=== PATIENT | male | born 1970 | race African-American/Black ===

== ENCOUNTER 2020-05-14 10:29 | Inpatient (IN) | payer OTHER ==
[2020-05-14 11:11] VITALS: BMI 24.4
[2020-05-14] MEDS ORDERED: ACETAMINOPHEN 325 MG TABLET (FP) PO PRN ×2 (11:53)
[2020-05-14] MEDS ORDERED: METHOCARBAMOL 500 MG TABLET PO PRN (11:53)
[2020-05-14] MEDS ORDERED: MENTHOL/PHENOL 1 EACH UD MM PRN (11:53)
[2020-05-14] MEDS ORDERED: MAGNESIUM CITRATE 300 ML BOTTLE PO PRN (11:53)
[2020-05-14] MEDS ORDERED: ONDANSETRON *ODT* 4 MG TABLET SL PRN (11:53)
[2020-05-14] MEDS ORDERED: NICOTINE POLACRILEX 2 MG GUM BUC PRN (11:53)
[2020-05-14] MEDS ORDERED: MAG HYDROX/AL HYDROX/SIMETH 30 ML UNIT-DOSE CUP PO PRN (11:53)
[2020-05-14] MEDS ORDERED: BISMUTH SUBSALICYLATE 524 MG/30 ML UD PO PRN (11:53)
[2020-05-14] MEDS ORDERED: MAGNESIUM HYDROX 2400MG/30ML ORAL SUSPENSION 30 ML CUP PO PRN (11:53)
[2020-05-14] MEDS ORDERED: IBUPROFEN 400 MG TABLET (FP) PO PRN (11:53)
[2020-05-14] MEDS: diazePAM 5 MG TABLET PO PRN (12:31)
[2020-05-14] MEDS ORDERED: LIDOCAINE 5% TOPICAL PATCH TP ONE (13:30)
[2020-05-14] MEDS: hydrOXYzine PAMOATE 25 MG CAPSULE (FP) PO SCH ×3 (14:37→22:53)
[2020-05-14 16:39] LABS: HIV INTERPRETATION NEGATIVE (NEGATIVE)
[2020-05-14] MEDS: diazePAM 5 MG TABLET PO SCH ×2 (17:57→22:53)
[2020-05-14] MEDS: THIAMINE HCL 100 MG TABLET (FP) PO SCH (22:53)
[2020-05-14] MEDS: QUEtiapine FUMARATE 100 MG TABLET (FP) PO SCH (22:53)
[2020-05-14] MEDS: MELATONIN 5 MG TABLETS PO SCH (22:54)
[2020-05-14] MEDS: LIDOCAINE PATCH REMOVAL MC SCH ×2 (22:56)
[2020-05-15] MEDS: diazePAM 5 MG TABLET PO SCH ×4 (06:06→22:18)
[2020-05-15] MEDS: hydrOXYzine PAMOATE 25 MG CAPSULE (FP) PO SCH ×5 (06:06→22:18)
[2020-05-15] MEDS: diazePAM 5 MG TABLET PO PRN (08:44)
[2020-05-15] MEDS: LIDOCAINE 5% TOPICAL PATCH TP SCH (10:36)
[2020-05-15] MEDS: PRENATAL VITAMINS W/ FOLIC ACID TABLET (FP) PO SCH (10:36)
[2020-05-15 11:52] LABS: HEMATOCRIT 46.1 % (35.4-49); HEMOGLOBIN 15.5 GM/dL (11.7-16.9); MCH 30.7 pg (25.7-33.7); MCHC 33.6 g/dl (32.0-35.9); MEAN CELL VOLUME 91.3 fl (80-96); MEAN PLT VOLUME 8.5 fl (7.5-11.1); PLATELET COUNT 305 K/MM3 (134-434); RBC 5.05 M/mm3 (4.00-5.60); RDW 13.1 % (11.9-15.9); WHITE BLOOD COUNT 5.4 K/mm3 (4.0-10.0)
[2020-05-15 11:57] LABS: POTASSIUM 3.8 mmol/L (3.5-5.1)
[2020-05-15 12:08] LABS: ALBUMIN 4.5 g/dl (3.4-5.0); BLOOD UREA NITROGEN 10.6 mg/dL (7-18); CALCIUM 9.9 mg/dL (8.5-10.1)
[2020-05-15 12:12] LABS: CREATININE 1.2 mg/dL (0.55-1.3)
[2020-05-15 12:13] LABS: BILIRUBIN,TOTAL 1.2 mg/dL (0.2-1); TOT PROT 7.7 g/dl (6.4-8.2)
[2020-05-15] MEDS: MELATONIN 5 MG TABLETS PO SCH (22:18)
[2020-05-15] MEDS: THIAMINE HCL 100 MG TABLET (FP) PO SCH (22:18)
[2020-05-15] MEDS: QUEtiapine FUMARATE 100 MG TABLET (FP) PO SCH (22:18)
[2020-05-15] MEDS: LIDOCAINE PATCH REMOVAL MC SCH ×2 (22:18)
[2020-05-16] MEDS: hydrOXYzine PAMOATE 25 MG CAPSULE (FP) PO SCH ×5 (06:34→22:15)
[2020-05-16] MEDS: diazePAM 5 MG TABLET PO SCH ×3 (06:34→22:14)
[2020-05-16] MEDS: LIDOCAINE 5% TOPICAL PATCH TP SCH (10:39)
[2020-05-16] MEDS: PRENATAL VITAMINS W/ FOLIC ACID TABLET (FP) PO SCH (10:39)
[2020-05-16] MEDS ORDERED: FLU VACCINE (FLULAVAL) PF 60 MCG/0.5 ML SYRINGE 2020-2021 IM ONE (12:00)
[2020-05-16] MEDS ORDERED: MASKS NR ONE (12:30)
[2020-05-16] MEDS ORDERED: QUEtiapine FUMARATE 50 MG TABLET ONE (21:07)
[2020-05-16] MEDS: QUEtiapine FUMARATE 100 MG TABLET (FP) PO SCH (22:14)
[2020-05-16] MEDS: THIAMINE HCL 100 MG TABLET (FP) PO SCH (22:15)
[2020-05-16] MEDS: MELATONIN 5 MG TABLETS PO SCH (22:15)
[2020-05-16] MEDS: LIDOCAINE PATCH REMOVAL MC SCH ×2 (22:17)
[2020-05-17] MEDS: hydrOXYzine PAMOATE 25 MG CAPSULE (FP) PO SCH ×5 (06:01→22:02)
[2020-05-17] MEDS: diazePAM 5 MG TABLET PO SCH ×2 (06:03→17:35)
[2020-05-17] MEDS: LIDOCAINE 5% TOPICAL PATCH TP SCH (10:57)
[2020-05-17] MEDS: PRENATAL VITAMINS W/ FOLIC ACID TABLET (FP) PO SCH (10:57)
[2020-05-17] MEDS: MELATONIN 5 MG TABLETS PO SCH (22:02)
[2020-05-17] MEDS: THIAMINE HCL 100 MG TABLET (FP) PO SCH (22:02)
[2020-05-17] MEDS: QUEtiapine FUMARATE 100 MG TABLET (FP) PO SCH (22:02)
[2020-05-17] MEDS: LIDOCAINE PATCH REMOVAL MC SCH ×2 (22:03→22:04)
[2020-05-18] MEDS ORDERED: diazePAM 5 MG TABLET PO ONE (06:00)
[2020-05-18] MEDS: hydrOXYzine PAMOATE 25 MG CAPSULE (FP) PO SCH ×2 (06:04→09:33)
[2020-05-18 09:15] VITALS: BP 128/75; PULSE 108; TEMP 97.1
[2020-05-18] MEDS: PRENATAL VITAMINS W/ FOLIC ACID TABLET (FP) PO SCH (09:33)
[2020-05-18] MEDS: LIDOCAINE 5% TOPICAL PATCH TP SCH (09:33)
== END 2020-05-18 12:05 | disposition other institution (70) | DRG 773 ==
LOC: YASAS 10:29 → Y3N 11:32
PROVIDERS: ADMIT Allergy & Immunology; ATTEND Allergy & Immunology
PROC: HZ2ZZZZ Detoxification Services for Substance Abuse Treatment (ICD-10-PCS; principal; 2020-05-14)
DX: F10.230 Alcohol dependence with withdrawal, uncomplicated (principal); F11.20 Opioid dependence, uncomplicated; F14.20 Cocaine dependence, uncomplicated; F12.20 Cannabis dependence, uncomplicated; F17.210 Nicotine dependence, cigarettes, uncomplicated; F19.24 Other psychoactive substance dependence with psychoactive substance-induced mood disorder; F31.9 Bipolar disorder, unspecified; G62.9 Polyneuropathy, unspecified; M16.12 Unilateral primary osteoarthritis, left hip; M54.5 Low back pain; G89.29 Other chronic pain; Z86.79 Personal history of other diseases of the circulatory system; Z87.19 Personal history of other diseases of the digestive system; Z86.19 Personal history of other infectious and parasitic diseases; Z91.19 Patient's noncompliance with other medical treatment and regimen
CPT/HCPCS: 36415; 80053; 82962; 85027; 86780; 87389; 93005; 93010; C9803; U0003

== ENCOUNTER 2020-05-18 12:15 | Inpatient (IN) | payer OTHER ==
[~2020-05-18 12:15] MED LIST: LOPERAMIDE HCL 2 MG CAPSULE PO PRN; MAG HYDROX/AL HYDROX/SIMETH 30 ML UNIT-DOSE CUP PO PRN; MAGNESIUM CITRATE 300 ML BOTTLE PO PRN; MAGNESIUM HYDROX 2400MG/30ML ORAL SUSPENSION 30 ML CUP PO PRN; P-EPHED 60MG/TRIPROLIDI 2.5MG TABLET PO PRN; guaiFENesin 200 MG/10 ML 10 ML UNIT-DOSE CUPS PO PRN
[2020-05-18] MEDS: IBUPROFEN 400 MG TABLET (FP) PO PRN (17:53)
[2020-05-18] MEDS: THIAMINE HCL 100 MG TABLET (FP) PO SCH (21:48)
[2020-05-18] MEDS: MELATONIN 5 MG TABLETS PO SCH (21:48)
[2020-05-18] MEDS: QUEtiapine FUMARATE 100 MG TABLET (FP) PO SCH (21:48)
[2020-05-18] MEDS ORDERED: MASKS NR ONE (22:12)
[2020-05-19] MEDS: IBUPROFEN 400 MG TABLET (FP) PO PRN (06:42)
[2020-05-19] MEDS: LIDOCAINE 5% TOPICAL PATCH TP SCH (09:56)
[2020-05-19] MEDS: PRENATAL VITAMINS W/ FOLIC ACID TABLET (FP) PO SCH (09:56)
[2020-05-19] MEDS: ACETAMINOPHEN 325 MG TABLET (FP) PO PRN ×2 (09:57→17:34)
[2020-05-19] MEDS ORDERED: PNEUMOCOCCAL 23 VACCINE 0.5 ML VIAL IM ONE (12:00)
[2020-05-19] MEDS ORDERED: PNEUMOC 13-VAL CONJ-DIP CRM/PF 0.5 ML DISP.SYRIN IM ONE (12:00)
[2020-05-19] MEDS ORDERED: FLU VACCINE (FLULAVAL) PF 60 MCG/0.5 ML SYRINGE 2020-2021 IM ONE (12:00)
[2020-05-19] MEDS: THIAMINE HCL 100 MG TABLET (FP) PO SCH (21:11)
[2020-05-19] MEDS: QUEtiapine FUMARATE 100 MG TABLET (FP) PO SCH (21:11)
[2020-05-19] MEDS: LIDOCAINE PATCH REMOVAL MC SCH (21:11)
[2020-05-19] MEDS: MELATONIN 5 MG TABLETS PO SCH (21:11)
[2020-05-20] MEDS: IBUPROFEN 400 MG TABLET (FP) PO PRN (06:31)
[2020-05-20] MEDS: LIDOCAINE 5% TOPICAL PATCH TP SCH (10:05)
[2020-05-20] MEDS: PRENATAL VITAMINS W/ FOLIC ACID TABLET (FP) PO SCH (10:05)
[2020-05-20] MEDS: ACETAMINOPHEN 325 MG TABLET (FP) PO PRN (10:06)
[2020-05-20] MEDS: LIDOCAINE PATCH REMOVAL MC SCH (21:47)
[2020-05-20] MEDS: MELATONIN 5 MG TABLETS PO SCH (21:47)
[2020-05-20] MEDS: THIAMINE HCL 100 MG TABLET (FP) PO SCH (21:47)
[2020-05-20] MEDS: QUEtiapine FUMARATE 50 MG TABLET PO SCH (21:48)
[2020-05-20] MEDS: GABAPENTIN 100 MG CAPSULE PO SCH (21:50)
[2020-05-20] MEDS ORDERED: GABAPENTIN 400 MG CAPSULE PO SCH (22:00)
[2020-05-21] MEDS: LIDOCAINE 5% TOPICAL PATCH TP SCH (10:16)
[2020-05-21] MEDS: IBUPROFEN 400 MG TABLET (FP) PO PRN (10:17)
[2020-05-21] MEDS: GABAPENTIN 100 MG CAPSULE PO SCH ×2 (10:17→21:19)
[2020-05-21] MEDS: PRENATAL VITAMINS W/ FOLIC ACID TABLET (FP) PO SCH (10:17)
[2020-05-21] MEDS: THIAMINE HCL 100 MG TABLET (FP) PO SCH (21:19)
[2020-05-21] MEDS: QUEtiapine FUMARATE 50 MG TABLET PO SCH (21:19)
[2020-05-21] MEDS: MELATONIN 5 MG TABLETS PO SCH (21:19)
[2020-05-21] MEDS: LIDOCAINE PATCH REMOVAL MC SCH (21:20)
[2020-05-22] MEDS: IBUPROFEN 400 MG TABLET (FP) PO PRN ×2 (07:29→15:59)
[2020-05-22] MEDS: PRENATAL VITAMINS W/ FOLIC ACID TABLET (FP) PO SCH (10:10)
[2020-05-22] MEDS: GABAPENTIN 100 MG CAPSULE PO SCH ×2 (10:10→21:52)
[2020-05-22] MEDS: LIDOCAINE 5% TOPICAL PATCH TP SCH (10:11)
[2020-05-22] MEDS: LIDOCAINE PATCH REMOVAL MC SCH (21:52)
[2020-05-22] MEDS: QUEtiapine FUMARATE 50 MG TABLET PO SCH (21:52)
[2020-05-22] MEDS: THIAMINE HCL 100 MG TABLET (FP) PO SCH (21:53)
[2020-05-22] MEDS: MELATONIN 5 MG TABLETS PO SCH (21:53)
[2020-05-23] MEDS: LIDOCAINE 5% TOPICAL PATCH TP SCH (09:56)
[2020-05-23] MEDS: PRENATAL VITAMINS W/ FOLIC ACID TABLET (FP) PO SCH (09:56)
[2020-05-23] MEDS: GABAPENTIN 100 MG CAPSULE PO SCH ×2 (09:56→21:14)
[2020-05-23] MEDS: ACETAMINOPHEN 325 MG TABLET (FP) PO PRN ×3 (10:55→21:15)
[2020-05-23] MEDS: MELATONIN 5 MG TABLETS PO SCH (21:14)
[2020-05-23] MEDS: THIAMINE HCL 100 MG TABLET (FP) PO SCH (21:14)
[2020-05-23] MEDS: QUEtiapine FUMARATE 50 MG TABLET PO SCH (21:14)
[2020-05-23] MEDS: LIDOCAINE PATCH REMOVAL MC SCH (21:15)
[2020-05-24] MEDS: ACETAMINOPHEN 325 MG TABLET (FP) PO PRN ×2 (04:10→17:05)
[2020-05-24] MEDS ORDERED: MASKS NR ONE (06:23)
[2020-05-24] MEDS: IBUPROFEN 400 MG TABLET (FP) PO PRN (06:57)
[2020-05-24] MEDS: PRENATAL VITAMINS W/ FOLIC ACID TABLET (FP) PO SCH (10:16)
[2020-05-24] MEDS: LIDOCAINE 5% TOPICAL PATCH TP SCH (10:16)
[2020-05-24] MEDS: GABAPENTIN 100 MG CAPSULE PO SCH ×2 (10:16→21:43)
[2020-05-24] MEDS: METHYL SALICYLATE/MENTHOL OINT 30 GM TUBE TP SCH (21:42)
[2020-05-24] MEDS: METHOCARBAMOL 500 MG TABLET PO PRN (21:43)
[2020-05-24] MEDS: MELATONIN 5 MG TABLETS PO SCH (21:43)
[2020-05-24] MEDS: QUEtiapine FUMARATE 50 MG TABLET PO SCH (21:43)
[2020-05-24] MEDS: THIAMINE HCL 100 MG TABLET (FP) PO SCH (21:43)
[2020-05-24] MEDS: LIDOCAINE PATCH REMOVAL MC SCH (21:43)
[2020-05-25] MEDS: ACETAMINOPHEN 325 MG TABLET (FP) PO PRN ×2 (07:44→18:27)
[2020-05-25] MEDS: LIDOCAINE 5% TOPICAL PATCH TP SCH (09:59)
[2020-05-25] MEDS: GABAPENTIN 100 MG CAPSULE PO SCH ×2 (09:59→21:16)
[2020-05-25] MEDS: PRENATAL VITAMINS W/ FOLIC ACID TABLET (FP) PO SCH (09:59)
[2020-05-25] MEDS ORDERED: MASKS NR ONE (17:14)
[2020-05-25] MEDS: THIAMINE HCL 100 MG TABLET (FP) PO SCH (21:15)
[2020-05-25] MEDS: QUEtiapine FUMARATE 50 MG TABLET PO SCH (21:15)
[2020-05-25] MEDS: MELATONIN 5 MG TABLETS PO SCH (21:16)
[2020-05-25] MEDS: METHOCARBAMOL 500 MG TABLET PO PRN (21:16)
[2020-05-25] MEDS: METHYL SALICYLATE/MENTHOL OINT 30 GM TUBE TP SCH (21:17)
[2020-05-25] MEDS: LIDOCAINE PATCH REMOVAL MC SCH (21:17)
[2020-05-26] MEDS: LIDOCAINE 5% TOPICAL PATCH TP SCH (10:08)
[2020-05-26] MEDS: PRENATAL VITAMINS W/ FOLIC ACID TABLET (FP) PO SCH (10:09)
[2020-05-26] MEDS: GABAPENTIN 100 MG CAPSULE PO SCH ×2 (10:09→21:43)
[2020-05-26] MEDS: ACETAMINOPHEN 325 MG TABLET (FP) PO PRN ×3 (10:10→21:44)
[2020-05-26] MEDS: METHYL SALICYLATE/MENTHOL OINT 30 GM TUBE TP SCH (21:42)
[2020-05-26] MEDS: LIDOCAINE PATCH REMOVAL MC SCH (21:42)
[2020-05-26] MEDS: QUEtiapine FUMARATE 50 MG TABLET PO SCH (21:43)
[2020-05-26] MEDS: THIAMINE HCL 100 MG TABLET (FP) PO SCH (21:43)
[2020-05-26] MEDS: MELATONIN 5 MG TABLETS PO SCH (21:43)
[2020-05-26] MEDS: METHOCARBAMOL 500 MG TABLET PO PRN (21:43)
[2020-05-27] MEDS: ACETAMINOPHEN 325 MG TABLET (FP) PO PRN ×3 (06:16→21:39)
[2020-05-27] MEDS ORDERED: COLLOIDAL OATMEAL 1 BAR EACH TP PRN (09:36)
[2020-05-27] MEDS ORDERED: AMMONIUM LACTATE 12% LOTION 225 GM BOTTLE TP PRN (09:36)
[2020-05-27] MEDS: GABAPENTIN 100 MG CAPSULE PO SCH ×2 (10:02→21:37)
[2020-05-27] MEDS: LIDOCAINE 5% TOPICAL PATCH TP SCH (10:02)
[2020-05-27] MEDS: PRENATAL VITAMINS W/ FOLIC ACID TABLET (FP) PO SCH (10:03)
[2020-05-27] MEDS: METHOCARBAMOL 500 MG TABLET PO PRN (10:04)
[2020-05-27] MEDS: THIAMINE HCL 100 MG TABLET (FP) PO SCH (21:38)
[2020-05-27] MEDS: QUEtiapine FUMARATE 50 MG TABLET PO SCH (21:39)
[2020-05-27] MEDS: MELATONIN 5 MG TABLETS PO SCH (21:41)
[2020-05-27] MEDS: METHYL SALICYLATE/MENTHOL OINT 30 GM TUBE TP SCH (23:04)
[2020-05-27] MEDS: LIDOCAINE PATCH REMOVAL MC SCH (23:05)
[2020-05-28] MEDS: ACETAMINOPHEN 325 MG TABLET (FP) PO PRN ×2 (06:38→20:35)
[2020-05-28] MEDS: LIDOCAINE 5% TOPICAL PATCH TP SCH (10:32)
[2020-05-28] MEDS: GABAPENTIN 100 MG CAPSULE PO SCH ×2 (10:32→21:12)
[2020-05-28] MEDS: PRENATAL VITAMINS W/ FOLIC ACID TABLET (FP) PO SCH (10:32)
[2020-05-28] MEDS: IBUPROFEN 400 MG TABLET (FP) PO PRN (10:32)
[2020-05-28] MEDS: MELATONIN 5 MG TABLETS PO SCH (21:12)
[2020-05-28] MEDS: THIAMINE HCL 100 MG TABLET (FP) PO SCH (21:12)
[2020-05-28] MEDS: QUEtiapine FUMARATE 50 MG TABLET PO SCH (21:12)
[2020-05-28] MEDS: METHOCARBAMOL 500 MG TABLET PO PRN (21:12)
[2020-05-28] MEDS: LIDOCAINE PATCH REMOVAL MC SCH (21:13)
[2020-05-28] MEDS: METHYL SALICYLATE/MENTHOL OINT 30 GM TUBE TP SCH (21:13)
[2020-05-29] MEDS: PRENATAL VITAMINS W/ FOLIC ACID TABLET (FP) PO SCH (09:57)
[2020-05-29] MEDS: GABAPENTIN 100 MG CAPSULE PO SCH ×2 (09:57→21:44)
[2020-05-29] MEDS: LIDOCAINE 5% TOPICAL PATCH TP SCH (09:58)
[2020-05-29] MEDS: IBUPROFEN 400 MG TABLET (FP) PO PRN ×2 (10:00→16:27)
[2020-05-29] MEDS: ACETAMINOPHEN 325 MG TABLET (FP) PO PRN ×2 (13:59→21:44)
[2020-05-29] MEDS: METHYL SALICYLATE/MENTHOL OINT 30 GM TUBE TP SCH (21:43)
[2020-05-29] MEDS: LIDOCAINE PATCH REMOVAL MC SCH (21:43)
[2020-05-29] MEDS: QUEtiapine FUMARATE 50 MG TABLET PO SCH (21:43)
[2020-05-29] MEDS: MELATONIN 5 MG TABLETS PO SCH (21:43)
[2020-05-29] MEDS: THIAMINE HCL 100 MG TABLET (FP) PO SCH (21:44)
[2020-05-30] MEDS: IBUPROFEN 400 MG TABLET (FP) PO PRN ×2 (06:52→14:52)
[2020-05-30] MEDS: GABAPENTIN 100 MG CAPSULE PO SCH ×2 (10:00→21:16)
[2020-05-30] MEDS: PRENATAL VITAMINS W/ FOLIC ACID TABLET (FP) PO SCH (10:01)
[2020-05-30] MEDS: LIDOCAINE 5% TOPICAL PATCH TP SCH (10:01)
[2020-05-30] MEDS: METHOCARBAMOL 500 MG TABLET PO PRN ×2 (10:02→21:16)
[2020-05-30] MEDS ORDERED: MASKS NR ONE (18:30)
[2020-05-30] MEDS: ACETAMINOPHEN 325 MG TABLET (FP) PO PRN (18:50)
[2020-05-30] MEDS: MELATONIN 5 MG TABLETS PO SCH (21:16)
[2020-05-30] MEDS: QUEtiapine FUMARATE 50 MG TABLET PO SCH (21:16)
[2020-05-30] MEDS: THIAMINE HCL 100 MG TABLET (FP) PO SCH (21:16)
[2020-05-30] MEDS: METHYL SALICYLATE/MENTHOL OINT 30 GM TUBE TP SCH (21:17)
[2020-05-30] MEDS: LIDOCAINE PATCH REMOVAL MC SCH (21:17)
[2020-05-31] MEDS: IBUPROFEN 400 MG TABLET (FP) PO PRN ×2 (06:51→17:45)
[2020-05-31] MEDS: GABAPENTIN 100 MG CAPSULE PO SCH ×2 (09:52→21:34)
[2020-05-31] MEDS: LIDOCAINE 5% TOPICAL PATCH TP SCH (09:52)
[2020-05-31] MEDS: PRENATAL VITAMINS W/ FOLIC ACID TABLET (FP) PO SCH (09:52)
[2020-05-31] MEDS: METHOCARBAMOL 500 MG TABLET PO PRN (21:34)
[2020-05-31] MEDS: MELATONIN 5 MG TABLETS PO SCH (21:34)
[2020-05-31] MEDS: QUEtiapine FUMARATE 50 MG TABLET PO SCH (21:34)
[2020-05-31] MEDS: METHYL SALICYLATE/MENTHOL OINT 30 GM TUBE TP SCH (21:34)
[2020-05-31] MEDS: LIDOCAINE PATCH REMOVAL MC SCH (21:34)
[2020-05-31] MEDS: THIAMINE HCL 100 MG TABLET (FP) PO SCH (21:35)
[2020-06-01] MEDS: IBUPROFEN 400 MG TABLET (FP) PO PRN ×2 (06:50→19:05)
[2020-06-01] MEDS: PRENATAL VITAMINS W/ FOLIC ACID TABLET (FP) PO SCH (09:56)
[2020-06-01] MEDS: LIDOCAINE 5% TOPICAL PATCH TP SCH (09:56)
[2020-06-01] MEDS: ACETAMINOPHEN 325 MG TABLET (FP) PO PRN ×2 (09:56→14:28)
[2020-06-01] MEDS: GABAPENTIN 100 MG CAPSULE PO SCH ×2 (09:56→21:18)
[2020-06-01] MEDS: THIAMINE HCL 100 MG TABLET (FP) PO SCH (21:18)
[2020-06-01] MEDS: MELATONIN 5 MG TABLETS PO SCH (21:18)
[2020-06-01] MEDS: METHOCARBAMOL 500 MG TABLET PO PRN (21:18)
[2020-06-01] MEDS: QUEtiapine FUMARATE 50 MG TABLET PO SCH (21:19)
[2020-06-01] MEDS: LIDOCAINE PATCH REMOVAL MC SCH (21:20)
[2020-06-01] MEDS: METHYL SALICYLATE/MENTHOL OINT 30 GM TUBE TP SCH (21:20)
[2020-06-02] MEDS: METHOCARBAMOL 500 MG TABLET PO PRN ×2 (06:32→21:38)
[2020-06-02] MEDS: PRENATAL VITAMINS W/ FOLIC ACID TABLET (FP) PO SCH (09:59)
[2020-06-02] MEDS: GABAPENTIN 100 MG CAPSULE PO SCH (09:59)
[2020-06-02] MEDS: LIDOCAINE 5% TOPICAL PATCH TP SCH (09:59)
[2020-06-02] MEDS: ACETAMINOPHEN 325 MG TABLET (FP) PO PRN (10:00)
[2020-06-02] MEDS: IBUPROFEN 400 MG TABLET (FP) PO PRN (21:38)
[2020-06-02] MEDS: METHYL SALICYLATE/MENTHOL OINT 30 GM TUBE TP SCH (21:38)
[2020-06-02] MEDS: MELATONIN 5 MG TABLETS PO SCH (21:38)
[2020-06-02] MEDS: LIDOCAINE PATCH REMOVAL MC SCH (21:38)
[2020-06-02] MEDS: QUEtiapine FUMARATE 200 MG TABLET PO SCH (21:39)
[2020-06-02] MEDS: THIAMINE HCL 100 MG TABLET (FP) PO SCH (21:39)
[2020-06-02] MEDS: GABAPENTIN 400 MG CAPSULE PO SCH (21:39)
[2020-06-03] MEDS: IBUPROFEN 400 MG TABLET (FP) PO PRN (06:55)
[2020-06-03] MEDS: LIDOCAINE 5% TOPICAL PATCH TP SCH (10:03)
[2020-06-03] MEDS: GABAPENTIN 400 MG CAPSULE PO SCH ×2 (10:04→21:38)
[2020-06-03] MEDS: PRENATAL VITAMINS W/ FOLIC ACID TABLET (FP) PO SCH (10:04)
[2020-06-03] MEDS: ACETAMINOPHEN 325 MG TABLET (FP) PO PRN ×2 (10:05→19:11)
[2020-06-03] MEDS: MELATONIN 5 MG TABLETS PO SCH (21:38)
[2020-06-03] MEDS: QUEtiapine FUMARATE 200 MG TABLET PO SCH (21:38)
[2020-06-03] MEDS: METHOCARBAMOL 500 MG TABLET PO PRN (21:38)
[2020-06-03] MEDS: THIAMINE HCL 100 MG TABLET (FP) PO SCH (21:38)
[2020-06-03] MEDS: LIDOCAINE HCL 5% TOP OINTMENT 50 GM TUBE TP PRN (21:39)
[2020-06-03] MEDS: LIDOCAINE PATCH REMOVAL MC SCH (21:40)
[2020-06-03] MEDS: METHYL SALICYLATE/MENTHOL OINT 30 GM TUBE TP SCH (21:40)
[2020-06-04] MEDS: IBUPROFEN 400 MG TABLET (FP) PO PRN (06:56)
[2020-06-04] MEDS: PRENATAL VITAMINS W/ FOLIC ACID TABLET (FP) PO SCH (10:28)
[2020-06-04] MEDS: LIDOCAINE 5% TOPICAL PATCH TP SCH (10:28)
[2020-06-04] MEDS: GABAPENTIN 400 MG CAPSULE PO SCH ×2 (10:28→21:39)
[2020-06-04] MEDS: ACETAMINOPHEN 325 MG TABLET (FP) PO PRN ×2 (10:30→21:39)
[2020-06-04] MEDS: METHOCARBAMOL 500 MG TABLET PO PRN ×2 (10:30→21:39)
[2020-06-04] MEDS: LIDOCAINE HCL 5% TOP OINTMENT 50 GM TUBE TP PRN (21:38)
[2020-06-04] MEDS: MELATONIN 5 MG TABLETS PO SCH (21:39)
[2020-06-04] MEDS: LIDOCAINE PATCH REMOVAL MC SCH (21:39)
[2020-06-04] MEDS: QUEtiapine FUMARATE 200 MG TABLET PO SCH (21:39)
[2020-06-04] MEDS: METHYL SALICYLATE/MENTHOL OINT 30 GM TUBE TP SCH (21:39)
[2020-06-04] MEDS: THIAMINE HCL 100 MG TABLET (FP) PO SCH (21:39)
[2020-06-05] MEDS: ACETAMINOPHEN 325 MG TABLET (FP) PO PRN ×2 (06:39→14:29)
[2020-06-05] MEDS: GABAPENTIN 400 MG CAPSULE PO SCH ×2 (09:53→21:21)
[2020-06-05] MEDS: PRENATAL VITAMINS W/ FOLIC ACID TABLET (FP) PO SCH (09:53)
[2020-06-05] MEDS: LIDOCAINE 5% TOPICAL PATCH TP SCH (09:54)
[2020-06-05] MEDS: IBUPROFEN 400 MG TABLET (FP) PO PRN (19:36)
[2020-06-05] MEDS: MELATONIN 5 MG TABLETS PO SCH (21:21)
[2020-06-05] MEDS: METHOCARBAMOL 500 MG TABLET PO PRN (21:21)
[2020-06-05] MEDS: QUEtiapine FUMARATE 200 MG TABLET PO SCH (21:21)
[2020-06-05] MEDS: THIAMINE HCL 100 MG TABLET (FP) PO SCH (21:21)
[2020-06-05] MEDS: LIDOCAINE PATCH REMOVAL MC SCH (21:22)
[2020-06-05] MEDS: METHYL SALICYLATE/MENTHOL OINT 30 GM TUBE TP SCH (21:22)
[2020-06-06] MEDS: IBUPROFEN 400 MG TABLET (FP) PO PRN (06:24)
[2020-06-06] MEDS: PRENATAL VITAMINS W/ FOLIC ACID TABLET (FP) PO SCH (09:56)
[2020-06-06] MEDS: GABAPENTIN 400 MG CAPSULE PO SCH ×2 (09:56→21:53)
[2020-06-06] MEDS: LIDOCAINE 5% TOPICAL PATCH TP SCH (09:57)
[2020-06-06] MEDS: ACETAMINOPHEN 325 MG TABLET (FP) PO PRN (09:58)
[2020-06-06] MEDS: MELATONIN 5 MG TABLETS PO SCH (21:52)
[2020-06-06] MEDS: LIDOCAINE PATCH REMOVAL MC SCH (21:52)
[2020-06-06] MEDS: METHYL SALICYLATE/MENTHOL OINT 30 GM TUBE TP SCH (21:52)
[2020-06-06] MEDS: THIAMINE HCL 100 MG TABLET (FP) PO SCH (21:53)
[2020-06-06] MEDS: QUEtiapine FUMARATE 200 MG TABLET PO SCH (21:53)
[2020-06-06] MEDS: METHOCARBAMOL 500 MG TABLET PO PRN (21:53)
[2020-06-07] MEDS ORDERED: MASKS NR ONE (06:08)
[2020-06-07] MEDS: ACETAMINOPHEN 325 MG TABLET (FP) PO PRN ×3 (06:09→21:28)
[2020-06-07] MEDS: PRENATAL VITAMINS W/ FOLIC ACID TABLET (FP) PO SCH (10:10)
[2020-06-07] MEDS: GABAPENTIN 400 MG CAPSULE PO SCH ×2 (10:10→21:28)
[2020-06-07] MEDS: LIDOCAINE 5% TOPICAL PATCH TP SCH (10:11)
[2020-06-07] MEDS: IBUPROFEN 400 MG TABLET (FP) PO PRN (10:12)
[2020-06-07] MEDS: METHOCARBAMOL 500 MG TABLET PO PRN (21:28)
[2020-06-07] MEDS: MELATONIN 5 MG TABLETS PO SCH (21:28)
[2020-06-07] MEDS: QUEtiapine FUMARATE 200 MG TABLET PO SCH (21:28)
[2020-06-07] MEDS: THIAMINE HCL 100 MG TABLET (FP) PO SCH (21:28)
[2020-06-07] MEDS: LIDOCAINE HCL 5% TOP OINTMENT 50 GM TUBE TP PRN (21:28)
[2020-06-07] MEDS: LIDOCAINE PATCH REMOVAL MC SCH (21:30)
[2020-06-07] MEDS: METHYL SALICYLATE/MENTHOL OINT 30 GM TUBE TP SCH (21:30)
[2020-06-08] MEDS: ACETAMINOPHEN 325 MG TABLET (FP) PO PRN ×2 (06:46→21:55)
[2020-06-08] MEDS: GABAPENTIN 400 MG CAPSULE PO SCH ×2 (10:17→21:55)
[2020-06-08] MEDS: LIDOCAINE 5% TOPICAL PATCH TP SCH (10:17)
[2020-06-08] MEDS: IBUPROFEN 400 MG TABLET (FP) PO PRN (10:17)
[2020-06-08] MEDS: PRENATAL VITAMINS W/ FOLIC ACID TABLET (FP) PO SCH (10:18)
[2020-06-08] MEDS: METHOCARBAMOL 500 MG TABLET PO PRN (10:18)
[2020-06-08] MEDS: METHYL SALICYLATE/MENTHOL OINT 30 GM TUBE TP SCH (21:55)
[2020-06-08] MEDS: THIAMINE HCL 100 MG TABLET (FP) PO SCH (21:55)
[2020-06-08] MEDS: MELATONIN 5 MG TABLETS PO SCH (21:55)
[2020-06-08] MEDS: QUEtiapine FUMARATE 200 MG TABLET PO SCH (21:55)
[2020-06-08] MEDS: SUVOREXANT 10 MG TABLET PO PRN (21:55)
[2020-06-08] MEDS: LIDOCAINE PATCH REMOVAL MC SCH (21:55)
[2020-06-08] MEDS: LIDOCAINE HCL 5% TOP OINTMENT 50 GM TUBE TP PRN (21:57)
[2020-06-09] MEDS: ACETAMINOPHEN 325 MG TABLET (FP) PO PRN ×2 (06:32→15:03)
[2020-06-09] MEDS: PRENATAL VITAMINS W/ FOLIC ACID TABLET (FP) PO SCH (10:38)
[2020-06-09] MEDS: LIDOCAINE 5% TOPICAL PATCH TP SCH (10:38)
[2020-06-09] MEDS: GABAPENTIN 400 MG CAPSULE PO SCH ×2 (10:38→21:14)
[2020-06-09] MEDS: IBUPROFEN 400 MG TABLET (FP) PO PRN ×2 (10:39→18:50)
[2020-06-09] MEDS: METHOCARBAMOL 500 MG TABLET PO PRN (10:39)
[2020-06-09] MEDS: LIDOCAINE HCL 5% TOP OINTMENT 50 GM TUBE TP PRN (21:13)
[2020-06-09] MEDS: SUVOREXANT 10 MG TABLET PO PRN (21:14)
[2020-06-09] MEDS: MELATONIN 5 MG TABLETS PO SCH (21:14)
[2020-06-09] MEDS: QUEtiapine FUMARATE 200 MG TABLET PO SCH (21:14)
[2020-06-09] MEDS: THIAMINE HCL 100 MG TABLET (FP) PO SCH (21:14)
[2020-06-09] MEDS: LIDOCAINE PATCH REMOVAL MC SCH (21:15)
[2020-06-09] MEDS: METHYL SALICYLATE/MENTHOL OINT 30 GM TUBE TP SCH (21:15)
[2020-06-10] MEDS: ACETAMINOPHEN 325 MG TABLET (FP) PO PRN ×2 (06:48→18:15)
[2020-06-10] MEDS: LIDOCAINE 5% TOPICAL PATCH TP SCH (10:19)
[2020-06-10] MEDS: METHOCARBAMOL 500 MG TABLET PO PRN ×2 (10:19→22:09)
[2020-06-10] MEDS: GABAPENTIN 400 MG CAPSULE PO SCH ×2 (10:19→22:09)
[2020-06-10] MEDS: PRENATAL VITAMINS W/ FOLIC ACID TABLET (FP) PO SCH (10:19)
[2020-06-10] MEDS: THIAMINE HCL 100 MG TABLET (FP) PO SCH (22:09)
[2020-06-10] MEDS: LIDOCAINE PATCH REMOVAL MC SCH (22:09)
[2020-06-10] MEDS: QUEtiapine FUMARATE 200 MG TABLET PO SCH (22:09)
[2020-06-10] MEDS: MELATONIN 5 MG TABLETS PO SCH (22:09)
[2020-06-10] MEDS: traZODone HCL 50 MG TABLET (FP) PO SCH (22:11)
[2020-06-10] MEDS: METHYL SALICYLATE/MENTHOL OINT 30 GM TUBE TP SCH (22:12)
[2020-06-11] MEDS: ACETAMINOPHEN 325 MG TABLET (FP) PO PRN ×2 (06:40→19:53)
[2020-06-11] MEDS: LIDOCAINE 5% TOPICAL PATCH TP SCH (10:40)
[2020-06-11] MEDS: PRENATAL VITAMINS W/ FOLIC ACID TABLET (FP) PO SCH (10:40)
[2020-06-11] MEDS: GABAPENTIN 400 MG CAPSULE PO SCH ×2 (10:40→21:17)
[2020-06-11] MEDS: THIAMINE HCL 100 MG TABLET (FP) PO SCH (21:16)
[2020-06-11] MEDS: QUEtiapine FUMARATE 200 MG TABLET PO SCH (21:17)
[2020-06-11] MEDS: MELATONIN 5 MG TABLETS PO SCH (21:17)
[2020-06-11] MEDS: LIDOCAINE PATCH REMOVAL MC SCH (21:17)
[2020-06-11] MEDS: traZODone HCL 50 MG TABLET (FP) PO SCH (21:17)
[2020-06-11] MEDS: METHYL SALICYLATE/MENTHOL OINT 30 GM TUBE TP SCH (21:17)
[2020-06-12] MEDS: ACETAMINOPHEN 325 MG TABLET (FP) PO PRN ×2 (07:06→13:51)
[2020-06-12] MEDS: LIDOCAINE 5% TOPICAL PATCH TP SCH (10:23)
[2020-06-12] MEDS: METHOCARBAMOL 500 MG TABLET PO PRN ×2 (10:23→21:38)
[2020-06-12] MEDS: GABAPENTIN 400 MG CAPSULE PO SCH ×2 (10:23→21:38)
[2020-06-12] MEDS: PRENATAL VITAMINS W/ FOLIC ACID TABLET (FP) PO SCH (10:24)
[2020-06-12] MEDS: IBUPROFEN 400 MG TABLET (FP) PO PRN ×2 (10:26→21:38)
[2020-06-12] MEDS: MELATONIN 5 MG TABLETS PO SCH (21:38)
[2020-06-12] MEDS: traZODone HCL 50 MG TABLET (FP) PO SCH (21:38)
[2020-06-12] MEDS: QUEtiapine FUMARATE 200 MG TABLET PO SCH (21:38)
[2020-06-12] MEDS: THIAMINE HCL 100 MG TABLET (FP) PO SCH (21:38)
[2020-06-12] MEDS: LIDOCAINE PATCH REMOVAL MC SCH (22:04)
[2020-06-12] MEDS: METHYL SALICYLATE/MENTHOL OINT 30 GM TUBE TP SCH (22:04)
[2020-06-13] MEDS: ACETAMINOPHEN 325 MG TABLET (FP) PO PRN ×4 (07:11→22:05)
[2020-06-13] MEDS: METHOCARBAMOL 500 MG TABLET PO PRN ×2 (10:08→21:16)
[2020-06-13] MEDS: PRENATAL VITAMINS W/ FOLIC ACID TABLET (FP) PO SCH (10:08)
[2020-06-13] MEDS: IBUPROFEN 400 MG TABLET (FP) PO PRN (10:08)
[2020-06-13] MEDS: GABAPENTIN 400 MG CAPSULE PO SCH ×2 (10:08→21:16)
[2020-06-13] MEDS: LIDOCAINE 5% TOPICAL PATCH TP SCH (10:09)
[2020-06-13] MEDS: MELATONIN 5 MG TABLETS PO SCH (21:16)
[2020-06-13] MEDS: THIAMINE HCL 100 MG TABLET (FP) PO SCH (21:16)
[2020-06-13] MEDS: traZODone HCL 50 MG TABLET (FP) PO SCH (21:16)
[2020-06-13] MEDS: QUEtiapine FUMARATE 200 MG TABLET PO SCH (21:16)
[2020-06-13] MEDS: METHYL SALICYLATE/MENTHOL OINT 30 GM TUBE TP SCH (21:18)
[2020-06-13] MEDS: LIDOCAINE PATCH REMOVAL MC SCH (21:18)
[2020-06-14] MEDS: ACETAMINOPHEN 325 MG TABLET (FP) PO PRN (07:03)
[2020-06-14 07:12] VITALS: TEMP 97.8
[2020-06-14] MEDS: LIDOCAINE 5% TOPICAL PATCH TP SCH (10:36)
[2020-06-14] MEDS: GABAPENTIN 400 MG CAPSULE PO SCH ×2 (10:36→21:34)
[2020-06-14] MEDS: PRENATAL VITAMINS W/ FOLIC ACID TABLET (FP) PO SCH (10:36)
[2020-06-14] MEDS: METHOCARBAMOL 500 MG TABLET PO PRN ×2 (10:37→21:34)
[2020-06-14] MEDS: IBUPROFEN 400 MG TABLET (FP) PO PRN (18:59)
[2020-06-14] MEDS: QUEtiapine FUMARATE 200 MG TABLET PO SCH (21:34)
[2020-06-14] MEDS: traZODone HCL 50 MG TABLET (FP) PO SCH (21:34)
[2020-06-14] MEDS: THIAMINE HCL 100 MG TABLET (FP) PO SCH (21:34)
[2020-06-14] MEDS: MELATONIN 5 MG TABLETS PO SCH (21:34)
[2020-06-14] MEDS: METHYL SALICYLATE/MENTHOL OINT 30 GM TUBE TP SCH (21:35)
[2020-06-14] MEDS: LIDOCAINE PATCH REMOVAL MC SCH (21:35)
[2020-06-15 07:06] VITALS: BP 116/69; PULSE 100
[2020-06-15] MEDS: PRENATAL VITAMINS W/ FOLIC ACID TABLET (FP) PO SCH (09:50)
[2020-06-15] MEDS: GABAPENTIN 400 MG CAPSULE PO SCH (09:50)
[2020-06-15] MEDS: LIDOCAINE 5% TOPICAL PATCH TP SCH (09:51)
== END 2020-06-15 10:26 | disposition home or self-care (01) | DRG 772 ==
LOC: YASAS 12:15 → Y5N 12:16
PROVIDERS: ADMIT Allergy & Immunology; ATTEND Allergy & Immunology
PROC: HZ42ZZZ Group Counseling for Substance Abuse Treatment, Cognitive-Behavioral (ICD-10-PCS; principal; 2020-05-18)
DX: F10.20 Alcohol dependence, uncomplicated (principal); F14.20 Cocaine dependence, uncomplicated; F17.210 Nicotine dependence, cigarettes, uncomplicated; M19.90 Unspecified osteoarthritis, unspecified site; R26.89 Other abnormalities of gait and mobility; G47.00 Insomnia, unspecified; M54.5 Low back pain; G89.29 Other chronic pain; Z87.438 Personal history of other diseases of male genital organs
CPT/HCPCS: 82962; 90732; C9803; G0008; G0009; Q2036; U0003

== ENCOUNTER 2020-08-17 11:05 | Inpatient (IN) | payer OTHER ==
[2020-08-17 12:02] VITALS: BMI 25.1
[2020-08-17] MEDS ORDERED: MAG HYDROX/AL HYDROX/SIMETH 30 ML UNIT-DOSE CUP PO PRN (16:37)
[2020-08-17] MEDS ORDERED: LOPERAMIDE HCL 2 MG CAPSULE PO PRN (16:37)
[2020-08-17] MEDS ORDERED: MAGNESIUM HYDROX 2400MG/30ML ORAL SUSPENSION 30 ML CUP PO PRN (16:37)
[2020-08-17] MEDS ORDERED: guaiFENesin 200 MG/10 ML 10 ML UNIT-DOSE CUPS PO PRN (16:37)
[2020-08-17] MEDS ORDERED: P-EPHED 60MG/TRIPROLIDI 2.5MG TABLET PO PRN (16:37)
[2020-08-17] MEDS ORDERED: MAGNESIUM CITRATE 300 ML BOTTLE PO PRN (16:37)
[2020-08-17] MEDS ORDERED: NICOTINE POLACRILEX 2 MG GUM BC PRN (16:37)
[2020-08-17 21:19] LABS: PH,URINE 5.5 (5.0-8.0); URINE APPEARANCE CLEAR; URINE BILIRUBIN NEGATIVE (NEGATIVE); URINE COLOR YELLOW; URINE GLUCOSE (UA) NEGATIVE (NEGATIVE); URINE KETONE NEGATIVE (NEGATIVE); URINE LEUK ESTERASE NEGATIVE (NEGATIVE); URINE NITRITE NEGATIVE (NEGATIVE); URINE PROTEIN NEGATIVE (NEGATIVE); URINE UROBILINOGEN 0.2 mg/dL (0.2-1.0)
[2020-08-17] MEDS: THIAMINE HCL 100 MG TABLET (FP) PO SCH (21:42)
[2020-08-17] MEDS: MELATONIN 5 MG TABLETS PO SCH (21:42)
[2020-08-17] MEDS: IBUPROFEN 400 MG TABLET (FP) PO PRN (23:53)
[2020-08-18] MEDS: PRENATAL VITAMINS W/ FOLIC ACID TABLET (FP) PO SCH (09:45)
[2020-08-18] MEDS: NICOTINE 21 MG/24 HOURS TOPICAL PATCH TD SCH (09:45)
[2020-08-18] MEDS: GABAPENTIN 400 MG CAPSULE PO SCH ×2 (09:46→21:13)
[2020-08-18 11:21] LABS: POTASSIUM 4.8 mmol/L (3.5-5.1)
[2020-08-18 11:22] LABS: HEMATOCRIT 40.5 % (35.4-49); HEMOGLOBIN 13.7 GM/dL (11.7-16.9); MCH 30.2 pg (25.7-33.7); MCHC 33.8 g/dl (32.0-35.9); MEAN CELL VOLUME 89.3 fl (80-96); PLATELET COUNT 352 K/MM3 (134-434); RBC 4.53 M/mm3 (4.00-5.60); RDW 12.9 % (11.9-15.9); WHITE BLOOD COUNT 5.6 K/mm3 (4.0-10.0)
[2020-08-18 11:31] LABS: CALCIUM 9.4 mg/dL (8.5-10.1)
[2020-08-18 11:32] LABS: ALBUMIN 3.6 g/dl (3.4-5.0); BLOOD UREA NITROGEN 11.8 mg/dL (7-18)
[2020-08-18 11:34] LABS: BILIRUBIN,TOTAL 0.4 mg/dL (0.2-1); TOT PROT 6.2 g/dl (6.4-8.2)
[2020-08-18 11:35] LABS: CREATININE 1.1 mg/dL (0.55-1.3)
[2020-08-18] MEDS: IBUPROFEN 400 MG TABLET (FP) PO PRN (18:05)
[2020-08-18] MEDS: MELATONIN 5 MG TABLETS PO SCH (21:13)
[2020-08-18] MEDS: QUEtiapine FUMARATE 100 MG TABLET (FP) PO SCH (21:13)
[2020-08-18] MEDS: THIAMINE HCL 100 MG TABLET (FP) PO SCH (21:13)
[2020-08-19] MEDS: IBUPROFEN 400 MG TABLET (FP) PO PRN (06:26)
[2020-08-19] MEDS: GABAPENTIN 400 MG CAPSULE PO SCH ×2 (10:10→21:03)
[2020-08-19] MEDS: PRENATAL VITAMINS W/ FOLIC ACID TABLET (FP) PO SCH (10:10)
[2020-08-19] MEDS: NICOTINE 21 MG/24 HOURS TOPICAL PATCH TD SCH (10:11)
[2020-08-19] MEDS: MELATONIN 5 MG TABLETS PO SCH (21:02)
[2020-08-19] MEDS: THIAMINE HCL 100 MG TABLET (FP) PO SCH (21:02)
[2020-08-19] MEDS: QUEtiapine FUMARATE 100 MG TABLET (FP) PO SCH (21:03)
[2020-08-20] MEDS: GABAPENTIN 400 MG CAPSULE PO SCH ×2 (09:52→21:05)
[2020-08-20] MEDS: PRENATAL VITAMINS W/ FOLIC ACID TABLET (FP) PO SCH (09:52)
[2020-08-20] MEDS: NICOTINE 21 MG/24 HOURS TOPICAL PATCH TD SCH (09:52)
[2020-08-20] MEDS ORDERED: MASKS NR ONE (10:04)
[2020-08-20] MEDS: IBUPROFEN 400 MG TABLET (FP) PO PRN (19:57)
[2020-08-20] MEDS: MELATONIN 5 MG TABLETS PO SCH (21:04)
[2020-08-20] MEDS: THIAMINE HCL 100 MG TABLET (FP) PO SCH (21:04)
[2020-08-20] MEDS: QUEtiapine FUMARATE 100 MG TABLET (FP) PO SCH (21:04)
[2020-08-21] MEDS: GABAPENTIN 400 MG CAPSULE PO SCH ×2 (09:50→21:01)
[2020-08-21] MEDS: PRENATAL VITAMINS W/ FOLIC ACID TABLET (FP) PO SCH (09:50)
[2020-08-21] MEDS: NICOTINE 21 MG/24 HOURS TOPICAL PATCH TD SCH (11:16)
[2020-08-21] MEDS: IBUPROFEN 400 MG TABLET (FP) PO PRN (19:05)
[2020-08-21] MEDS: MELATONIN 5 MG TABLETS PO SCH (21:00)
[2020-08-21] MEDS: QUEtiapine FUMARATE 100 MG TABLET (FP) PO SCH (21:01)
[2020-08-21] MEDS: THIAMINE HCL 100 MG TABLET (FP) PO SCH (21:01)
[2020-08-22] MEDS: NICOTINE 21 MG/24 HOURS TOPICAL PATCH TD SCH (09:54)
[2020-08-22] MEDS: PRENATAL VITAMINS W/ FOLIC ACID TABLET (FP) PO SCH (09:54)
[2020-08-22] MEDS: GABAPENTIN 400 MG CAPSULE PO SCH ×2 (09:54→21:36)
[2020-08-22] MEDS: ACETAMINOPHEN 325 MG TABLET (FP) PO PRN (14:59)
[2020-08-22] MEDS: QUEtiapine FUMARATE 100 MG TABLET (FP) PO SCH (21:36)
[2020-08-22] MEDS: MELATONIN 5 MG TABLETS PO SCH (21:36)
[2020-08-22] MEDS: THIAMINE HCL 100 MG TABLET (FP) PO SCH (21:36)
[2020-08-23] MEDS: GABAPENTIN 400 MG CAPSULE PO SCH ×2 (10:21→21:19)
[2020-08-23] MEDS: PRENATAL VITAMINS W/ FOLIC ACID TABLET (FP) PO SCH (10:21)
[2020-08-23] MEDS: ACETAMINOPHEN 325 MG TABLET (FP) PO PRN (10:22)
[2020-08-23] MEDS: NICOTINE 21 MG/24 HOURS TOPICAL PATCH TD SCH (10:23)
[2020-08-23] MEDS: LIDOCAINE 5% TOPICAL PATCH TP SCH (14:21)
[2020-08-23] MEDS: METHOCARBAMOL 500 MG TABLET PO SCH ×2 (14:23→21:19)
[2020-08-23] MEDS: THIAMINE HCL 100 MG TABLET (FP) PO SCH (21:19)
[2020-08-23] MEDS: QUEtiapine FUMARATE 100 MG TABLET (FP) PO SCH (21:19)
[2020-08-23] MEDS: MELATONIN 5 MG TABLETS PO SCH (21:20)
[2020-08-23] MEDS: LIDOCAINE PATCH REMOVAL MC SCH (21:20)
[2020-08-24] MEDS: METHOCARBAMOL 500 MG TABLET PO SCH ×3 (07:01→21:30)
[2020-08-24] MEDS: PRENATAL VITAMINS W/ FOLIC ACID TABLET (FP) PO SCH (10:17)
[2020-08-24] MEDS: GABAPENTIN 400 MG CAPSULE PO SCH ×2 (10:17→21:29)
[2020-08-24] MEDS: LIDOCAINE 5% TOPICAL PATCH TP SCH (10:18)
[2020-08-24] MEDS: NICOTINE 21 MG/24 HOURS TOPICAL PATCH TD SCH (10:19)
[2020-08-24] MEDS: QUEtiapine FUMARATE 100 MG TABLET (FP) PO SCH (21:29)
[2020-08-24] MEDS: THIAMINE HCL 100 MG TABLET (FP) PO SCH (21:30)
[2020-08-24] MEDS: MELATONIN 5 MG TABLETS PO SCH (21:30)
[2020-08-24] MEDS: traZODone HCL 100 MG TABLET (FP) PO SCH (21:31)
[2020-08-24] MEDS: LIDOCAINE PATCH REMOVAL MC SCH (21:32)
[2020-08-25] MEDS: METHOCARBAMOL 500 MG TABLET PO SCH ×3 (06:37→21:14)
[2020-08-25] MEDS: LIDOCAINE 5% TOPICAL PATCH TP SCH (10:15)
[2020-08-25] MEDS: PRENATAL VITAMINS W/ FOLIC ACID TABLET (FP) PO SCH (10:15)
[2020-08-25] MEDS: GABAPENTIN 400 MG CAPSULE PO SCH ×2 (10:15→21:14)
[2020-08-25] MEDS: NICOTINE 21 MG/24 HOURS TOPICAL PATCH TD SCH (10:16)
[2020-08-25] MEDS: IBUPROFEN 400 MG TABLET (FP) PO PRN (14:03)
[2020-08-25] MEDS: MELATONIN 5 MG TABLETS PO SCH (21:14)
[2020-08-25] MEDS: QUEtiapine FUMARATE 100 MG TABLET (FP) PO SCH (21:14)
[2020-08-25] MEDS: traZODone HCL 100 MG TABLET (FP) PO SCH (21:14)
[2020-08-25] MEDS: THIAMINE HCL 100 MG TABLET (FP) PO SCH (21:14)
[2020-08-25] MEDS: LIDOCAINE PATCH REMOVAL MC SCH (21:15)
[2020-08-26] MEDS: METHOCARBAMOL 500 MG TABLET PO SCH ×3 (06:29→21:33)
[2020-08-26] MEDS: NICOTINE 21 MG/24 HOURS TOPICAL PATCH TD SCH (10:26)
[2020-08-26] MEDS: GABAPENTIN 400 MG CAPSULE PO SCH ×2 (10:26→21:33)
[2020-08-26] MEDS: PRENATAL VITAMINS W/ FOLIC ACID TABLET (FP) PO SCH (10:26)
[2020-08-26] MEDS: LIDOCAINE 5% TOPICAL PATCH TP SCH (10:26)
[2020-08-26] MEDS: IBUPROFEN 400 MG TABLET (FP) PO PRN ×2 (13:39→21:34)
[2020-08-26] MEDS: LIDOCAINE PATCH REMOVAL MC SCH (21:33)
[2020-08-26] MEDS: QUEtiapine FUMARATE 100 MG TABLET (FP) PO SCH (21:33)
[2020-08-26] MEDS: THIAMINE HCL 100 MG TABLET (FP) PO SCH (21:33)
[2020-08-26] MEDS: MELATONIN 5 MG TABLETS PO SCH (21:33)
[2020-08-26] MEDS: traZODone HCL 100 MG TABLET (FP) PO SCH (21:33)
[2020-08-27] MEDS: METHOCARBAMOL 500 MG TABLET PO SCH ×3 (06:22→21:15)
[2020-08-27] MEDS: GABAPENTIN 400 MG CAPSULE PO SCH ×2 (10:07→21:15)
[2020-08-27] MEDS: PRENATAL VITAMINS W/ FOLIC ACID TABLET (FP) PO SCH (10:07)
[2020-08-27] MEDS: NICOTINE 21 MG/24 HOURS TOPICAL PATCH TD SCH (10:08)
[2020-08-27] MEDS: LIDOCAINE 5% TOPICAL PATCH TP SCH (10:08)
[2020-08-27] MEDS: traZODone HCL 100 MG TABLET (FP) PO SCH (21:15)
[2020-08-27] MEDS: MELATONIN 5 MG TABLETS PO SCH (21:15)
[2020-08-27] MEDS: THIAMINE HCL 100 MG TABLET (FP) PO SCH (21:15)
[2020-08-27] MEDS: QUEtiapine FUMARATE 100 MG TABLET (FP) PO SCH (21:15)
[2020-08-27] MEDS: LIDOCAINE PATCH REMOVAL MC SCH (21:16)
[2020-08-28] MEDS: METHOCARBAMOL 500 MG TABLET PO SCH ×3 (06:21→21:24)
[2020-08-28] MEDS: NICOTINE 21 MG/24 HOURS TOPICAL PATCH TD SCH (10:12)
[2020-08-28] MEDS: PRENATAL VITAMINS W/ FOLIC ACID TABLET (FP) PO SCH (10:12)
[2020-08-28] MEDS: LIDOCAINE 5% TOPICAL PATCH TP SCH (10:12)
[2020-08-28] MEDS: GABAPENTIN 400 MG CAPSULE PO SCH ×2 (10:12→21:24)
[2020-08-28] MEDS: IBUPROFEN 400 MG TABLET (FP) PO PRN (18:47)
[2020-08-28] MEDS: MELATONIN 5 MG TABLETS PO SCH (21:23)
[2020-08-28] MEDS: THIAMINE HCL 100 MG TABLET (FP) PO SCH (21:23)
[2020-08-28] MEDS: traZODone HCL 100 MG TABLET (FP) PO SCH (21:24)
[2020-08-28] MEDS: QUEtiapine FUMARATE 100 MG TABLET (FP) PO SCH (21:24)
[2020-08-28] MEDS: LIDOCAINE PATCH REMOVAL MC SCH (21:25)
[2020-08-29] MEDS: METHOCARBAMOL 500 MG TABLET PO SCH ×3 (06:26→21:09)
[2020-08-29] MEDS: GABAPENTIN 400 MG CAPSULE PO SCH ×2 (10:00→21:08)
[2020-08-29] MEDS: LIDOCAINE 5% TOPICAL PATCH TP SCH (10:00)
[2020-08-29] MEDS: PRENATAL VITAMINS W/ FOLIC ACID TABLET (FP) PO SCH (10:00)
[2020-08-29] MEDS: NICOTINE 21 MG/24 HOURS TOPICAL PATCH TD SCH (10:00)
[2020-08-29] MEDS: LIDOCAINE PATCH REMOVAL MC SCH (21:09)
[2020-08-29] MEDS: MELATONIN 5 MG TABLETS PO SCH (21:09)
[2020-08-29] MEDS: traZODone HCL 100 MG TABLET (FP) PO SCH (21:09)
[2020-08-29] MEDS: QUEtiapine FUMARATE 100 MG TABLET (FP) PO SCH (21:09)
[2020-08-29] MEDS: THIAMINE HCL 100 MG TABLET (FP) PO SCH (21:09)
[2020-08-30] MEDS: METHOCARBAMOL 500 MG TABLET PO SCH (06:20)
[2020-08-30 06:55] VITALS: BP 117/81; PULSE 81; TEMP 98.1
[2020-08-30] MEDS: LIDOCAINE 5% TOPICAL PATCH TP SCH (09:33)
[2020-08-30] MEDS: PRENATAL VITAMINS W/ FOLIC ACID TABLET (FP) PO SCH (09:33)
[2020-08-30] MEDS: NICOTINE 21 MG/24 HOURS TOPICAL PATCH TD SCH (09:33)
[2020-08-30] MEDS: GABAPENTIN 400 MG CAPSULE PO SCH (09:33)
== END 2020-08-30 09:45 | disposition home or self-care (01) | DRG 772 ==
LOC: YASAS 11:05 → Y3W 16:32
PROVIDERS: ADMIT Allergy & Immunology; ATTEND Allergy & Immunology
PROC: HZ42ZZZ Group Counseling for Substance Abuse Treatment, Cognitive-Behavioral (ICD-10-PCS; principal; 2020-08-17)
DX: F10.20 Alcohol dependence, uncomplicated (principal); F11.10 Opioid abuse, uncomplicated; F14.20 Cocaine dependence, uncomplicated; F17.210 Nicotine dependence, cigarettes, uncomplicated; F19.282 Other psychoactive substance dependence with psychoactive substance-induced sleep disorder; F19.280 Other psychoactive substance dependence with psychoactive substance-induced anxiety disorder; F31.9 Bipolar disorder, unspecified; G62.9 Polyneuropathy, unspecified; I48.91 Unspecified atrial fibrillation; M16.11 Unilateral primary osteoarthritis, right hip; M54.5 Low back pain; G89.29 Other chronic pain; Z87.19 Personal history of other diseases of the digestive system; Z86.19 Personal history of other infectious and parasitic diseases; Z59.0 Homelessness; Z56.0 Unemployment, unspecified
CPT/HCPCS: 36415; 80053; 81003; 85027; 86780; 93005; 93010; C9803; U0003

== ENCOUNTER 2020-11-08 11:27 | Inpatient (IN) | payer OTHER ==
[2020-11-08] MEDS ORDERED: guaiFENesin 200 MG/10 ML 10 ML UNIT-DOSE CUPS PO PRN (15:07)
[2020-11-08] MEDS ORDERED: MAGNESIUM CITRATE 300 ML BOTTLE PO PRN (15:07)
[2020-11-08] MEDS ORDERED: MAGNESIUM HYDROX 2400MG/30ML ORAL SUSPENSION 30 ML CUP PO PRN (15:07)
[2020-11-08] MEDS ORDERED: LOPERAMIDE HCL 2 MG CAPSULE PO PRN (15:07)
[2020-11-08] MEDS ORDERED: P-EPHED 60MG/TRIPROLIDI 2.5MG TABLET PO PRN (15:07)
[2020-11-08] MEDS ORDERED: MAG HYDROX/AL HYDROX/SIMETH 30 ML UNIT-DOSE CUP PO PRN (15:07)
[2020-11-08 15:16] VITALS: BMI 25.0
[2020-11-08 17:35] LABS: ALBUMIN 3.8 g/dl (3.4-5.0); CALCIUM 8.8 mg/dL (8.5-10.1)
[2020-11-08 17:36] LABS: BLOOD UREA NITROGEN 13.2 mg/dL (7-18)
[2020-11-08 17:39] LABS: CREATININE 1.2 mg/dL (0.55-1.3)
[2020-11-08 17:40] LABS: BILIRUBIN,TOTAL 0.8 mg/dL (0.2-1); HEMATOCRIT 41.4 % (35.4-49); HEMOGLOBIN 14.1 GM/dL (11.7-16.9); MCH 30.7 pg (25.7-33.7); MEAN CELL VOLUME 90.3 fl (80-96); MEAN PLT VOLUME 7.7 fl (7.5-11.1); PLATELET COUNT 386 K/MM3 (134-434); RBC 4.58 M/mm3 (4.00-5.60); RDW 13.4 % (11.9-15.9); TOT PROT 6.8 g/dl (6.4-8.2); WHITE BLOOD COUNT 4.7 K/mm3 (4.0-10.0)
[2020-11-08] MEDS: hydrOXYzine PAMOATE 25 MG CAPSULE (FP) PO SCH ×2 (19:42→21:10)
[2020-11-08] MEDS: ACETAMINOPHEN 325 MG TABLET (FP) PO PRN (19:44)
[2020-11-08] MEDS: THIAMINE HCL 100 MG TABLET (FP) PO SCH (21:09)
[2020-11-08] MEDS ORDERED: MELATONIN 5 MG TABLETS PO SCH (22:00)
[2020-11-09] MEDS: hydrOXYzine PAMOATE 25 MG CAPSULE (FP) PO SCH ×5 (06:14→21:51)
[2020-11-09] MEDS: IBUPROFEN 400 MG TABLET (FP) PO PRN (06:14)
[2020-11-09] MEDS: NICOTINE 7 MG/24 HOURS TOPICAL PATCH TD SCH (09:41)
[2020-11-09] MEDS: PRENATAL VITAMINS W/ FOLIC ACID TABLET (FP) PO SCH (09:41)
[2020-11-09] MEDS ORDERED: LIDOCAINE 5% TOPICAL PATCH TP ONE (12:50)
[2020-11-09 14:51] LABS: URINE APPEARANCE CLEAR; URINE BILIRUBIN NEGATIVE (NEGATIVE); URINE COLOR YELLOW; URINE GLUCOSE (UA) NEGATIVE (NEGATIVE); URINE KETONE NEGATIVE (NEGATIVE); URINE LEUK ESTERASE NEGATIVE (NEGATIVE); URINE NITRITE NEGATIVE (NEGATIVE); URINE PROTEIN NEGATIVE (NEGATIVE)
[2020-11-09] MEDS ORDERED: GABAPENTIN 400 MG CAPSULE PO SCH (15:30)
[2020-11-09] MEDS: GABAPENTIN 100 MG CAPSULE PO SCH ×2 (15:59→21:51)
[2020-11-09] MEDS: traZODone HCL 100 MG TABLET (FP) PO SCH (21:51)
[2020-11-09] MEDS: QUEtiapine FUMARATE 200 MG TABLET PO SCH (21:51)
[2020-11-09] MEDS: THIAMINE HCL 100 MG TABLET (FP) PO SCH (21:51)
[2020-11-09] MEDS: LIDOCAINE PATCH REMOVAL MC SCH (21:52)
[2020-11-09] MEDS ORDERED: LIDOCAINE PATCH REMOVAL MC SCH (22:00)
[2020-11-09] MEDS ORDERED: MASKS NR ONE (22:03)
[2020-11-10] MEDS: IBUPROFEN 400 MG TABLET (FP) PO PRN (06:37)
[2020-11-10] MEDS: hydrOXYzine PAMOATE 25 MG CAPSULE (FP) PO SCH ×5 (06:37→21:14)
[2020-11-10] MEDS: GABAPENTIN 100 MG CAPSULE PO SCH ×3 (06:38→21:06)
[2020-11-10] MEDS ORDERED: MASKS NR ONE (06:41)
[2020-11-10] MEDS ORDERED: PT OWN MED DRAWER 7, Y5N ONE (09:23)
[2020-11-10] MEDS: LIDOCAINE 5% TOPICAL PATCH TP SCH (09:38)
[2020-11-10] MEDS: NICOTINE 7 MG/24 HOURS TOPICAL PATCH TD SCH (09:38)
[2020-11-10] MEDS: PRENATAL VITAMINS W/ FOLIC ACID TABLET (FP) PO SCH (09:38)
[2020-11-10] MEDS: QUEtiapine FUMARATE 200 MG TABLET PO SCH ×2 (09:39→21:06)
[2020-11-10] MEDS: traZODone HCL 100 MG TABLET (FP) PO SCH (21:06)
[2020-11-10] MEDS: THIAMINE HCL 100 MG TABLET (FP) PO SCH (21:06)
[2020-11-10] MEDS: LIDOCAINE PATCH REMOVAL MC SCH (21:14)
[2020-11-11] MEDS: hydrOXYzine PAMOATE 25 MG CAPSULE (FP) PO SCH ×5 (06:49→21:03)
[2020-11-11] MEDS: GABAPENTIN 100 MG CAPSULE PO SCH ×3 (06:49→21:03)
[2020-11-11] MEDS: PRENATAL VITAMINS W/ FOLIC ACID TABLET (FP) PO SCH (09:47)
[2020-11-11] MEDS: QUEtiapine FUMARATE 200 MG TABLET PO SCH ×2 (09:47→21:03)
[2020-11-11] MEDS: NICOTINE 7 MG/24 HOURS TOPICAL PATCH TD SCH (09:47)
[2020-11-11] MEDS: IBUPROFEN 400 MG TABLET (FP) PO PRN (09:47)
[2020-11-11] MEDS: LIDOCAINE 5% TOPICAL PATCH TP SCH (09:47)
[2020-11-11] MEDS: THIAMINE HCL 100 MG TABLET (FP) PO SCH (21:03)
[2020-11-11] MEDS: traZODone HCL 100 MG TABLET (FP) PO SCH (21:03)
[2020-11-11] MEDS: LIDOCAINE PATCH REMOVAL MC SCH (21:07)
[2020-11-12 06:07] LABS: SARS-CoV-2 NAA Not Detected (Not Detected)
[2020-11-12] MEDS: hydrOXYzine PAMOATE 25 MG CAPSULE (FP) PO SCH ×5 (07:10→21:57)
[2020-11-12] MEDS: GABAPENTIN 100 MG CAPSULE PO SCH ×3 (07:10→21:56)
[2020-11-12] MEDS: PRENATAL VITAMINS W/ FOLIC ACID TABLET (FP) PO SCH (09:30)
[2020-11-12] MEDS: LIDOCAINE 5% TOPICAL PATCH TP SCH (09:31)
[2020-11-12] MEDS: NICOTINE 7 MG/24 HOURS TOPICAL PATCH TD SCH (09:31)
[2020-11-12] MEDS: QUEtiapine FUMARATE 200 MG TABLET PO SCH ×2 (09:31→21:57)
[2020-11-12] MEDS: IBUPROFEN 400 MG TABLET (FP) PO PRN (17:27)
[2020-11-12] MEDS: THIAMINE HCL 100 MG TABLET (FP) PO SCH (21:56)
[2020-11-12] MEDS: traZODone HCL 100 MG TABLET (FP) PO SCH (21:57)
[2020-11-12] MEDS: LIDOCAINE PATCH REMOVAL MC SCH (22:14)
[2020-11-13] MEDS: hydrOXYzine PAMOATE 25 MG CAPSULE (FP) PO SCH ×5 (06:20→21:05)
[2020-11-13] MEDS: GABAPENTIN 100 MG CAPSULE PO SCH ×3 (06:20→21:05)
[2020-11-13] MEDS: ACETAMINOPHEN 325 MG TABLET (FP) PO PRN ×2 (06:21→20:14)
[2020-11-13] MEDS: LIDOCAINE 5% TOPICAL PATCH TP SCH (09:32)
[2020-11-13] MEDS: PRENATAL VITAMINS W/ FOLIC ACID TABLET (FP) PO SCH (09:32)
[2020-11-13] MEDS: NICOTINE 7 MG/24 HOURS TOPICAL PATCH TD SCH (09:33)
[2020-11-13] MEDS: QUEtiapine FUMARATE 200 MG TABLET PO SCH ×2 (09:33→21:05)
[2020-11-13] MEDS: traZODone HCL 100 MG TABLET (FP) PO SCH (21:05)
[2020-11-13] MEDS: LIDOCAINE PATCH REMOVAL MC SCH (21:06)
[2020-11-13] MEDS: THIAMINE HCL 100 MG TABLET (FP) PO SCH (21:07)
[2020-11-14] MEDS: ACETAMINOPHEN 325 MG TABLET (FP) PO PRN (06:10)
[2020-11-14] MEDS: hydrOXYzine PAMOATE 25 MG CAPSULE (FP) PO SCH ×5 (06:10→21:56)
[2020-11-14] MEDS: GABAPENTIN 100 MG CAPSULE PO SCH ×3 (06:10→21:56)
[2020-11-14] MEDS: PRENATAL VITAMINS W/ FOLIC ACID TABLET (FP) PO SCH (09:42)
[2020-11-14] MEDS: QUEtiapine FUMARATE 200 MG TABLET PO SCH ×2 (09:43→21:56)
[2020-11-14] MEDS: LIDOCAINE 5% TOPICAL PATCH TP SCH (09:43)
[2020-11-14] MEDS: NICOTINE 7 MG/24 HOURS TOPICAL PATCH TD SCH (09:43)
[2020-11-14] MEDS: IBUPROFEN 400 MG TABLET (FP) PO PRN ×2 (09:44→21:57)
[2020-11-14] MEDS: traZODone HCL 100 MG TABLET (FP) PO SCH (21:56)
[2020-11-14] MEDS: THIAMINE HCL 100 MG TABLET (FP) PO SCH (21:56)
[2020-11-14] MEDS: LIDOCAINE PATCH REMOVAL MC SCH (21:56)
[2020-11-15] MEDS: hydrOXYzine PAMOATE 25 MG CAPSULE (FP) PO SCH ×5 (07:13→21:05)
[2020-11-15] MEDS: GABAPENTIN 100 MG CAPSULE PO SCH ×3 (07:13→21:06)
[2020-11-15] MEDS: LIDOCAINE 5% TOPICAL PATCH TP SCH (09:43)
[2020-11-15] MEDS: PRENATAL VITAMINS W/ FOLIC ACID TABLET (FP) PO SCH (09:43)
[2020-11-15] MEDS: QUEtiapine FUMARATE 200 MG TABLET PO SCH (09:44)
[2020-11-15] MEDS: NICOTINE 7 MG/24 HOURS TOPICAL PATCH TD SCH (09:44)
[2020-11-15] MEDS: traZODone HCL 100 MG TABLET (FP) PO SCH (21:06)
[2020-11-15] MEDS: THIAMINE HCL 100 MG TABLET (FP) PO SCH (21:06)
[2020-11-15] MEDS: QUEtiapine FUMARATE 400 MG TABLET PO SCH (21:06)
[2020-11-15] MEDS: IBUPROFEN 400 MG TABLET (FP) PO PRN (21:07)
[2020-11-15] MEDS: LIDOCAINE PATCH REMOVAL MC SCH (21:44)
[2020-11-16] MEDS: hydrOXYzine PAMOATE 25 MG CAPSULE (FP) PO SCH ×5 (07:14→22:02)
[2020-11-16] MEDS: GABAPENTIN 100 MG CAPSULE PO SCH ×3 (07:14→22:03)
[2020-11-16] MEDS: IBUPROFEN 400 MG TABLET (FP) PO PRN ×2 (09:37→17:25)
[2020-11-16] MEDS: LIDOCAINE 5% TOPICAL PATCH TP SCH (09:38)
[2020-11-16] MEDS: PRENATAL VITAMINS W/ FOLIC ACID TABLET (FP) PO SCH (09:39)
[2020-11-16] MEDS: NICOTINE 7 MG/24 HOURS TOPICAL PATCH TD SCH (09:39)
[2020-11-16] MEDS: ACETAMINOPHEN 325 MG TABLET (FP) PO PRN (13:51)
[2020-11-16] MEDS ORDERED: COLLOIDAL OATMEAL 1 BAR EACH TP PRN (14:09)
[2020-11-16] MEDS: traZODone HCL 100 MG TABLET (FP) PO SCH (22:02)
[2020-11-16] MEDS: QUEtiapine FUMARATE 400 MG TABLET PO SCH (22:03)
[2020-11-16] MEDS: LIDOCAINE PATCH REMOVAL MC SCH (22:03)
[2020-11-16] MEDS: THIAMINE HCL 100 MG TABLET (FP) PO SCH (22:03)
[2020-11-17] MEDS: GABAPENTIN 100 MG CAPSULE PO SCH ×3 (06:29→21:02)
[2020-11-17] MEDS: hydrOXYzine PAMOATE 25 MG CAPSULE (FP) PO SCH ×5 (06:29→21:02)
[2020-11-17] MEDS ORDERED: COVID-19 VAC,AD26(JANSSEN)/PF 0.5 ML IM ONE (10:00)
[2020-11-17] MEDS: NICOTINE 7 MG/24 HOURS TOPICAL PATCH TD SCH (10:09)
[2020-11-17] MEDS: PRENATAL VITAMINS W/ FOLIC ACID TABLET (FP) PO SCH (10:09)
[2020-11-17] MEDS: IBUPROFEN 400 MG TABLET (FP) PO PRN (10:09)
[2020-11-17] MEDS: LIDOCAINE 5% TOPICAL PATCH TP SCH (10:10)
[2020-11-17] MEDS: THIAMINE HCL 100 MG TABLET (FP) PO SCH (21:02)
[2020-11-17] MEDS: traZODone HCL 100 MG TABLET (FP) PO SCH (21:02)
[2020-11-17] MEDS: QUEtiapine FUMARATE 400 MG TABLET PO SCH (21:02)
[2020-11-17] MEDS: LIDOCAINE PATCH REMOVAL MC SCH (21:58)
[2020-11-18] MEDS: GABAPENTIN 100 MG CAPSULE PO SCH ×4 (06:32→22:07)
[2020-11-18] MEDS: ACETAMINOPHEN 325 MG TABLET (FP) PO PRN ×3 (06:32→18:02)
[2020-11-18] MEDS: hydrOXYzine PAMOATE 25 MG CAPSULE (FP) PO SCH ×5 (06:32→22:07)
[2020-11-18] MEDS: PRENATAL VITAMINS W/ FOLIC ACID TABLET (FP) PO SCH (09:23)
[2020-11-18] MEDS: NICOTINE 7 MG/24 HOURS TOPICAL PATCH TD SCH (09:23)
[2020-11-18] MEDS: LIDOCAINE 5% TOPICAL PATCH TP SCH (09:23)
[2020-11-18] MEDS ORDERED: PT OWN MED DRAWER 7, Y5N ONE (10:36)
[2020-11-18] MEDS: QUEtiapine FUMARATE 400 MG TABLET PO SCH (22:07)
[2020-11-18] MEDS: traZODone HCL 100 MG TABLET (FP) PO SCH (22:07)
[2020-11-18] MEDS: THIAMINE HCL 100 MG TABLET (FP) PO SCH (22:08)
[2020-11-18] MEDS: LIDOCAINE PATCH REMOVAL MC SCH (22:08)
[2020-11-19] MEDS: hydrOXYzine PAMOATE 25 MG CAPSULE (FP) PO SCH ×5 (06:33→22:01)
[2020-11-19] MEDS: GABAPENTIN 100 MG CAPSULE PO SCH ×3 (06:33→22:01)
[2020-11-19] MEDS: NICOTINE 7 MG/24 HOURS TOPICAL PATCH TD SCH (09:33)
[2020-11-19] MEDS: PRENATAL VITAMINS W/ FOLIC ACID TABLET (FP) PO SCH (09:33)
[2020-11-19] MEDS: LIDOCAINE 5% TOPICAL PATCH TP SCH (09:33)
[2020-11-19] MEDS: ACETAMINOPHEN 325 MG TABLET (FP) PO PRN (09:34)
[2020-11-19] MEDS ORDERED: PT OWN MED DRAWER 7, Y5N ONE ×2 (14:41→22:09)
[2020-11-19] MEDS: THIAMINE HCL 100 MG TABLET (FP) PO SCH (22:01)
[2020-11-19] MEDS: traZODone HCL 100 MG TABLET (FP) PO SCH (22:01)
[2020-11-19] MEDS: QUEtiapine FUMARATE 400 MG TABLET PO SCH (22:01)
[2020-11-19] MEDS: LIDOCAINE PATCH REMOVAL MC SCH (22:02)
[2020-11-20] MEDS: GABAPENTIN 100 MG CAPSULE PO SCH ×3 (06:37→21:59)
[2020-11-20] MEDS: hydrOXYzine PAMOATE 25 MG CAPSULE (FP) PO SCH ×5 (06:38→22:00)
[2020-11-20] MEDS: LIDOCAINE 5% TOPICAL PATCH TP SCH (09:28)
[2020-11-20] MEDS: PRENATAL VITAMINS W/ FOLIC ACID TABLET (FP) PO SCH (09:28)
[2020-11-20] MEDS: NICOTINE 7 MG/24 HOURS TOPICAL PATCH TD SCH (09:29)
[2020-11-20] MEDS: IBUPROFEN 400 MG TABLET (FP) PO PRN (18:13)
[2020-11-20] MEDS: traZODone HCL 100 MG TABLET (FP) PO SCH (21:59)
[2020-11-20] MEDS: THIAMINE HCL 100 MG TABLET (FP) PO SCH (22:00)
[2020-11-20] MEDS: LIDOCAINE PATCH REMOVAL MC SCH (22:00)
[2020-11-20] MEDS: QUEtiapine FUMARATE 400 MG TABLET PO SCH (22:00)
[2020-11-21] MEDS: hydrOXYzine PAMOATE 25 MG CAPSULE (FP) PO SCH ×5 (06:36→21:03)
[2020-11-21] MEDS: GABAPENTIN 100 MG CAPSULE PO SCH ×3 (06:36→21:03)
[2020-11-21] MEDS: PRENATAL VITAMINS W/ FOLIC ACID TABLET (FP) PO SCH (09:29)
[2020-11-21] MEDS: LIDOCAINE 5% TOPICAL PATCH TP SCH (09:29)
[2020-11-21] MEDS: NICOTINE 7 MG/24 HOURS TOPICAL PATCH TD SCH (09:30)
[2020-11-21] MEDS: IBUPROFEN 400 MG TABLET (FP) PO PRN (19:12)
[2020-11-21] MEDS: traZODone HCL 100 MG TABLET (FP) PO SCH (21:03)
[2020-11-21] MEDS: LIDOCAINE PATCH REMOVAL MC SCH (21:03)
[2020-11-21] MEDS: QUEtiapine FUMARATE 400 MG TABLET PO SCH (21:03)
[2020-11-21] MEDS: THIAMINE HCL 100 MG TABLET (FP) PO SCH (21:03)
[2020-11-22] MEDS: GABAPENTIN 100 MG CAPSULE PO SCH ×3 (07:55→21:52)
[2020-11-22] MEDS: hydrOXYzine PAMOATE 25 MG CAPSULE (FP) PO SCH ×5 (07:55→21:52)
[2020-11-22] MEDS: NICOTINE 7 MG/24 HOURS TOPICAL PATCH TD SCH (09:34)
[2020-11-22] MEDS: PRENATAL VITAMINS W/ FOLIC ACID TABLET (FP) PO SCH (09:34)
[2020-11-22] MEDS: LIDOCAINE 5% TOPICAL PATCH TP SCH (09:34)
[2020-11-22] MEDS: IBUPROFEN 400 MG TABLET (FP) PO PRN (09:35)
[2020-11-22] MEDS: THIAMINE HCL 100 MG TABLET (FP) PO SCH (21:52)
[2020-11-22] MEDS: QUEtiapine FUMARATE 400 MG TABLET PO SCH (21:52)
[2020-11-22] MEDS: LIDOCAINE PATCH REMOVAL MC SCH (21:53)
[2020-11-22] MEDS: traZODone HCL 100 MG TABLET (FP) PO SCH (21:53)
[2020-11-22] MEDS: ACETAMINOPHEN 325 MG TABLET (FP) PO PRN (22:17)
[2020-11-23] MEDS: GABAPENTIN 100 MG CAPSULE PO SCH ×3 (06:51→21:09)
[2020-11-23] MEDS: hydrOXYzine PAMOATE 25 MG CAPSULE (FP) PO SCH ×5 (07:04→22:36)
[2020-11-23] MEDS: PRENATAL VITAMINS W/ FOLIC ACID TABLET (FP) PO SCH (09:29)
[2020-11-23] MEDS: NICOTINE 7 MG/24 HOURS TOPICAL PATCH TD SCH (09:30)
[2020-11-23] MEDS: LIDOCAINE 5% TOPICAL PATCH TP SCH (09:30)
[2020-11-23] MEDS: IBUPROFEN 400 MG TABLET (FP) PO PRN (17:27)
[2020-11-23] MEDS: traZODone HCL 100 MG TABLET (FP) PO SCH (21:09)
[2020-11-23] MEDS: THIAMINE HCL 100 MG TABLET (FP) PO SCH (21:09)
[2020-11-23] MEDS: QUEtiapine FUMARATE 400 MG TABLET PO SCH (21:09)
[2020-11-23] MEDS: LIDOCAINE PATCH REMOVAL MC SCH (22:36)
[2020-11-24] MEDS: hydrOXYzine PAMOATE 25 MG CAPSULE (FP) PO SCH ×5 (07:30→21:54)
[2020-11-24] MEDS: GABAPENTIN 100 MG CAPSULE PO SCH ×3 (07:30→21:54)
[2020-11-24] MEDS: PRENATAL VITAMINS W/ FOLIC ACID TABLET (FP) PO SCH (09:32)
[2020-11-24] MEDS: NICOTINE 7 MG/24 HOURS TOPICAL PATCH TD SCH (09:33)
[2020-11-24] MEDS: LIDOCAINE 5% TOPICAL PATCH TP SCH (09:33)
[2020-11-24] MEDS: THIAMINE HCL 100 MG TABLET (FP) PO SCH (21:53)
[2020-11-24] MEDS: QUEtiapine FUMARATE 400 MG TABLET PO SCH (21:53)
[2020-11-24] MEDS: traZODone HCL 100 MG TABLET (FP) PO SCH (21:54)
[2020-11-24] MEDS: LIDOCAINE PATCH REMOVAL MC SCH (21:54)
[2020-11-25] MEDS: GABAPENTIN 100 MG CAPSULE PO SCH ×3 (06:46→21:34)
[2020-11-25] MEDS: hydrOXYzine PAMOATE 25 MG CAPSULE (FP) PO SCH ×5 (06:47→21:34)
[2020-11-25 06:53] VITALS: TEMP 97.7
[2020-11-25] MEDS: NICOTINE 7 MG/24 HOURS TOPICAL PATCH TD SCH (09:30)
[2020-11-25] MEDS: PRENATAL VITAMINS W/ FOLIC ACID TABLET (FP) PO SCH (09:30)
[2020-11-25] MEDS: LIDOCAINE 5% TOPICAL PATCH TP SCH (09:30)
[2020-11-25] MEDS: LIDOCAINE PATCH REMOVAL MC SCH (21:34)
[2020-11-25] MEDS: QUEtiapine FUMARATE 400 MG TABLET PO SCH (21:34)
[2020-11-25] MEDS: traZODone HCL 100 MG TABLET (FP) PO SCH (21:34)
[2020-11-25] MEDS: THIAMINE HCL 100 MG TABLET (FP) PO SCH (21:34)
[2020-11-26 07:00] VITALS: BP 119/78; PULSE 103
[2020-11-26] MEDS: hydrOXYzine PAMOATE 25 MG CAPSULE (FP) PO SCH ×2 (07:14→09:31)
[2020-11-26] MEDS: ACETAMINOPHEN 325 MG TABLET (FP) PO PRN (07:14)
[2020-11-26] MEDS: GABAPENTIN 100 MG CAPSULE PO SCH (07:14)
[2020-11-26] MEDS: LIDOCAINE 5% TOPICAL PATCH TP SCH (09:30)
[2020-11-26] MEDS: PRENATAL VITAMINS W/ FOLIC ACID TABLET (FP) PO SCH (09:30)
[2020-11-26] MEDS: NICOTINE 7 MG/24 HOURS TOPICAL PATCH TD SCH (09:31)
== END 2020-11-26 09:50 | disposition home or self-care (01) | DRG 772 ==
LOC: YASAS 11:27 → UNDOADMIN 14:34 → Y6N 14:34 → Y5N 17:38
PROVIDERS: ADMIT Allergy & Immunology; ATTEND Allergy & Immunology
PROC: HZ42ZZZ Group Counseling for Substance Abuse Treatment, Cognitive-Behavioral (ICD-10-PCS; principal; 2020-11-08)
DX: F11.20 Opioid dependence, uncomplicated (principal); F10.20 Alcohol dependence, uncomplicated; F14.20 Cocaine dependence, uncomplicated; F12.10 Cannabis abuse, uncomplicated; F17.210 Nicotine dependence, cigarettes, uncomplicated; F19.280 Other psychoactive substance dependence with psychoactive substance-induced anxiety disorder; F19.282 Other psychoactive substance dependence with psychoactive substance-induced sleep disorder; F19.24 Other psychoactive substance dependence with psychoactive substance-induced mood disorder; F31.9 Bipolar disorder, unspecified; M16.11 Unilateral primary osteoarthritis, right hip; M54.5 Low back pain; G89.29 Other chronic pain; Z86.79 Personal history of other diseases of the circulatory system; Z87.438 Personal history of other diseases of male genital organs
CPT/HCPCS: 0031A; 36415; 80053; 81003; 85027; 86780; 91303; 93005; 93010; C9803; U0003; U0005

== ENCOUNTER 2021-02-15 14:29 | Inpatient (IN) | payer OTHER ==
[2021-02-15 17:38] VITALS: BMI 25.9
[2021-02-15] MEDS ORDERED: LOPERAMIDE HCL 2 MG CAPSULE PO PRN (18:44)
[2021-02-15] MEDS ORDERED: MAGNESIUM HYDROX 2400MG/30ML ORAL SUSPENSION 30 ML CUP PO PRN (18:44)
[2021-02-15] MEDS ORDERED: P-EPHED 60MG/TRIPROLIDI 2.5MG TABLET PO PRN (18:44)
[2021-02-15] MEDS ORDERED: NICOTINE 10 MG CARTRIDGE (INHALER) IH PRN (18:44)
[2021-02-15] MEDS ORDERED: ACETAMINOPHEN 325 MG TABLET (FP) PO PRN (18:44)
[2021-02-15] MEDS ORDERED: MAGNESIUM CITRATE 300 ML BOTTLE PO PRN (18:44)
[2021-02-15] MEDS ORDERED: IBUPROFEN 400 MG TABLET (FP) PO PRN (18:44)
[2021-02-15] MEDS ORDERED: MAG HYDROX/AL HYDROX/SIMETH 30 ML UNIT-DOSE CUP PO PRN (18:44)
[2021-02-15] MEDS ORDERED: guaiFENesin 200 MG/10 ML 10 ML UNIT-DOSE CUPS PO PRN (18:44)
[2021-02-15] MEDS ORDERED: MELATONIN 5 MG TABLETS PO SCH (22:00)
[2021-02-15] MEDS ORDERED: THIAMINE HCL 100 MG TABLET (FP) PO SCH (22:00)
[2021-02-15] MEDS: hydrOXYzine PAMOATE 25 MG CAPSULE (FP) PO SCH (22:45)
[2021-02-16] MEDS: hydrOXYzine PAMOATE 25 MG CAPSULE (FP) PO SCH ×2 (06:22→10:50)
[2021-02-16 09:14] VITALS: BP 103/72; PULSE 63; TEMP 97.1
[2021-02-16] MEDS ORDERED: PRENATAL VITAMINS W/ FOLIC ACID TABLET (FP) PO SCH (10:00)
[2021-02-16] MEDS ORDERED: NICOTINE 7 MG/24 HOURS TOPICAL PATCH TD SCH (10:00)
[2021-02-16] MEDS ORDERED: hydrOXYzine PAMOATE 25 MG CAPSULE (FP) PO PRN (10:16)
[2021-02-16 11:03] LABS: HEMOGLOBIN 12.9 GM/dL (11.7-16.9); MCH 30.3 pg (25.7-33.7); MCHC 34.1 g/dl (32.0-35.9); MEAN CELL VOLUME 88.9 fl (80-96); MEAN PLT VOLUME 8.1 fl (7.5-11.1); PLATELET COUNT 286 10^3/uL (134-434); RBC 4.27 M/mm3 (4.00-5.60); RDW 13.7 % (11.9-15.9); WHITE BLOOD COUNT 4.6 K/mm3 (4.0-10.0)
[2021-02-16 11:16] LABS: CALCIUM 8.6 mg/dL (8.5-10.1)
[2021-02-16 11:17] LABS: ALBUMIN 3.2 g/dl (3.4-5.0); BLOOD UREA NITROGEN 16.6 mg/dL (7-18)
[2021-02-16 11:22] LABS: BILIRUBIN,TOTAL 0.3 mg/dL (0.2-1); TOT PROT 5.7 g/dl (6.4-8.2)
[2021-02-16] MEDS ORDERED: GABAPENTIN 100 MG CAPSULE PO SCH (14:00)
[2021-02-16] MEDS ORDERED: traZODone HCL 100 MG TABLET (FP) PO SCH (22:00)
[2021-02-16] MEDS ORDERED: QUEtiapine FUMARATE 100 MG TABLET (FP) PO SCH (22:00)
== END 2021-02-16 11:49 | disposition other institution (70) | DRG 773 ==
LOC: YASAS 14:29 → Y3N 18:52 → UNDOADMIN 18:52 → UNDODISIN 02-16 11:49
PROVIDERS: ADMIT Allergy & Immunology; ATTEND Allergy & Immunology
PROC: HZ2ZZZZ Detoxification Services for Substance Abuse Treatment (ICD-10-PCS; principal; 2021-02-15)
DX: F11.23 Opioid dependence with withdrawal (principal); F10.230 Alcohol dependence with withdrawal, uncomplicated; F14.20 Cocaine dependence, uncomplicated; F12.20 Cannabis dependence, uncomplicated; F17.210 Nicotine dependence, cigarettes, uncomplicated; F19.282 Other psychoactive substance dependence with psychoactive substance-induced sleep disorder; F19.280 Other psychoactive substance dependence with psychoactive substance-induced anxiety disorder; F19.24 Other psychoactive substance dependence with psychoactive substance-induced mood disorder; F31.9 Bipolar disorder, unspecified; M19.90 Unspecified osteoarthritis, unspecified site; R26.89 Other abnormalities of gait and mobility
CPT/HCPCS: 36415; 80053; 85027; 86780; C9803; U0003; U0005

== ENCOUNTER 2021-02-16 11:59 | Inpatient (IN) | payer OTHER ==
[~2021-02-16 11:59] MED LIST changes: +MENTHOL/PHENOL 1 EACH UD MM PRN; +NICOTINE 10 MG CARTRIDGE (INHALER) IH PRN; +hydrOXYzine PAMOATE 25 MG CAPSULE (FP) PO PRN
[2021-02-16] MEDS: IBUPROFEN 400 MG TABLET (FP) PO PRN (15:30)
[2021-02-16] MEDS: GABAPENTIN 100 MG CAPSULE PO SCH ×2 (15:31→21:42)
[2021-02-16] MEDS: THIAMINE HCL 100 MG TABLET (FP) PO SCH (21:42)
[2021-02-16] MEDS: traZODone HCL 100 MG TABLET (FP) PO SCH (21:42)
[2021-02-16] MEDS: QUEtiapine FUMARATE 100 MG TABLET (FP) PO SCH (21:56)
[2021-02-16] MEDS ORDERED: MELATONIN 5 MG TABLETS PO SCH (22:00)
[2021-02-16] MEDS ORDERED: QUEtiapine FUMARATE 400 MG TABLET PO SCH (22:00)
[2021-02-17] MEDS: GABAPENTIN 100 MG CAPSULE PO SCH ×3 (06:56→21:29)
[2021-02-17] MEDS: ACETAMINOPHEN 325 MG TABLET (FP) PO PRN ×2 (06:58→21:31)
[2021-02-17] MEDS: PRENATAL VITAMINS W/ FOLIC ACID TABLET (FP) PO SCH (10:08)
[2021-02-17] MEDS: NICOTINE 14 MG/24 HOURS TOPICAL PATCH TD SCH (10:08)
[2021-02-17] MEDS: QUEtiapine FUMARATE 100 MG TABLET (FP) PO SCH ×2 (10:08→21:30)
[2021-02-17] MEDS: IBUPROFEN 400 MG TABLET (FP) PO PRN (15:07)
[2021-02-17] MEDS: THIAMINE HCL 100 MG TABLET (FP) PO SCH (21:29)
[2021-02-17] MEDS: traZODone HCL 100 MG TABLET (FP) PO SCH (21:29)
[2021-02-18] MEDS: GABAPENTIN 100 MG CAPSULE PO SCH ×3 (06:48→21:36)
[2021-02-18] MEDS: ACETAMINOPHEN 325 MG TABLET (FP) PO PRN (06:49)
[2021-02-18] MEDS: PRENATAL VITAMINS W/ FOLIC ACID TABLET (FP) PO SCH (09:59)
[2021-02-18] MEDS: NICOTINE 14 MG/24 HOURS TOPICAL PATCH TD SCH (09:59)
[2021-02-18] MEDS: QUEtiapine FUMARATE 100 MG TABLET (FP) PO SCH ×2 (10:00→21:36)
[2021-02-18] MEDS: LIDOCAINE 5% TOPICAL PATCH TP SCH (10:48)
[2021-02-18] MEDS: traZODone HCL 100 MG TABLET (FP) PO SCH (21:36)
[2021-02-18] MEDS: THIAMINE HCL 100 MG TABLET (FP) PO SCH (21:36)
[2021-02-18] MEDS: LIDOCAINE PATCH REMOVAL MC SCH (21:36)
[2021-02-19] MEDS: GABAPENTIN 100 MG CAPSULE PO SCH ×3 (06:59→21:31)
[2021-02-19] MEDS: ACETAMINOPHEN 325 MG TABLET (FP) PO PRN (07:00)
[2021-02-19] MEDS: PRENATAL VITAMINS W/ FOLIC ACID TABLET (FP) PO SCH (10:30)
[2021-02-19] MEDS: QUEtiapine FUMARATE 100 MG TABLET (FP) PO SCH ×2 (10:30→21:32)
[2021-02-19] MEDS: NICOTINE 14 MG/24 HOURS TOPICAL PATCH TD SCH (10:30)
[2021-02-19] MEDS: LIDOCAINE 5% TOPICAL PATCH TP SCH (10:30)
[2021-02-19] MEDS: traZODone HCL 100 MG TABLET (FP) PO SCH (21:32)
[2021-02-19] MEDS: THIAMINE HCL 100 MG TABLET (FP) PO SCH (21:32)
[2021-02-19] MEDS: LIDOCAINE PATCH REMOVAL MC SCH (21:32)
[2021-02-20] MEDS: GABAPENTIN 100 MG CAPSULE PO SCH ×3 (06:41→21:46)
[2021-02-20] MEDS: QUEtiapine FUMARATE 100 MG TABLET (FP) PO SCH ×2 (10:26→21:46)
[2021-02-20] MEDS: PRENATAL VITAMINS W/ FOLIC ACID TABLET (FP) PO SCH (10:26)
[2021-02-20] MEDS: NICOTINE 14 MG/24 HOURS TOPICAL PATCH TD SCH (10:27)
[2021-02-20] MEDS: LIDOCAINE 5% TOPICAL PATCH TP SCH (10:27)
[2021-02-20] MEDS: ACETAMINOPHEN 325 MG TABLET (FP) PO PRN (19:42)
[2021-02-20] MEDS: LIDOCAINE PATCH REMOVAL MC SCH (21:46)
[2021-02-20] MEDS: THIAMINE HCL 100 MG TABLET (FP) PO SCH (21:46)
[2021-02-20] MEDS: traZODone HCL 100 MG TABLET (FP) PO SCH (21:46)
[2021-02-21] MEDS: GABAPENTIN 100 MG CAPSULE PO SCH ×3 (07:40→21:36)
[2021-02-21] MEDS: LIDOCAINE 5% TOPICAL PATCH TP SCH (10:33)
[2021-02-21] MEDS: PRENATAL VITAMINS W/ FOLIC ACID TABLET (FP) PO SCH (10:33)
[2021-02-21] MEDS: QUEtiapine FUMARATE 100 MG TABLET (FP) PO SCH ×2 (10:33→21:36)
[2021-02-21] MEDS: NICOTINE 14 MG/24 HOURS TOPICAL PATCH TD SCH (10:33)
[2021-02-21] MEDS: IBUPROFEN 400 MG TABLET (FP) PO PRN (17:13)
[2021-02-21] MEDS: traZODone HCL 100 MG TABLET (FP) PO SCH (21:36)
[2021-02-21] MEDS: THIAMINE HCL 100 MG TABLET (FP) PO SCH (21:36)
[2021-02-21] MEDS: LIDOCAINE PATCH REMOVAL MC SCH (23:39)
[2021-02-22] MEDS: GABAPENTIN 100 MG CAPSULE PO SCH (07:24)
[2021-02-22] MEDS: PRENATAL VITAMINS W/ FOLIC ACID TABLET (FP) PO SCH (10:00)
[2021-02-22] MEDS: NICOTINE 14 MG/24 HOURS TOPICAL PATCH TD SCH (10:00)
[2021-02-22] MEDS: LIDOCAINE 5% TOPICAL PATCH TP SCH (10:00)
[2021-02-22] MEDS: QUEtiapine FUMARATE 100 MG TABLET (FP) PO SCH (10:01)
[2021-02-22] MEDS: GABAPENTIN 400 MG CAPSULE PO SCH ×2 (15:00→21:34)
[2021-02-22] MEDS: traZODone HCL 100 MG TABLET (FP) PO SCH (21:34)
[2021-02-22] MEDS: THIAMINE HCL 100 MG TABLET (FP) PO SCH (21:34)
[2021-02-22] MEDS: QUEtiapine FUMARATE 200 MG TABLET PO SCH (21:35)
[2021-02-22] MEDS: LIDOCAINE PATCH REMOVAL MC SCH (21:35)
[2021-02-23] MEDS: GABAPENTIN 400 MG CAPSULE PO SCH ×3 (06:45→21:30)
[2021-02-23] MEDS: IBUPROFEN 400 MG TABLET (FP) PO PRN (06:46)
[2021-02-23] MEDS: NICOTINE 14 MG/24 HOURS TOPICAL PATCH TD SCH (09:49)
[2021-02-23] MEDS: LIDOCAINE 5% TOPICAL PATCH TP SCH (09:49)
[2021-02-23] MEDS: PRENATAL VITAMINS W/ FOLIC ACID TABLET (FP) PO SCH (09:49)
[2021-02-23] MEDS: QUEtiapine FUMARATE 200 MG TABLET PO SCH ×2 (09:49→21:30)
[2021-02-23] MEDS: traZODone HCL 100 MG TABLET (FP) PO SCH (21:30)
[2021-02-23] MEDS: LIDOCAINE PATCH REMOVAL MC SCH (21:30)
[2021-02-23] MEDS: THIAMINE HCL 100 MG TABLET (FP) PO SCH (21:30)
[2021-02-24] MEDS: GABAPENTIN 400 MG CAPSULE PO SCH ×3 (07:31→22:00)
[2021-02-24] MEDS: ACETAMINOPHEN 325 MG TABLET (FP) PO PRN (07:32)
[2021-02-24] MEDS ORDERED: PT OWN MED DRAWER 7, Y5N ONE (08:37)
[2021-02-24] MEDS: LIDOCAINE 5% TOPICAL PATCH TP SCH (10:00)
[2021-02-24] MEDS: NICOTINE 14 MG/24 HOURS TOPICAL PATCH TD SCH (10:00)
[2021-02-24] MEDS: PRENATAL VITAMINS W/ FOLIC ACID TABLET (FP) PO SCH (10:00)
[2021-02-24] MEDS: QUEtiapine FUMARATE 200 MG TABLET PO SCH ×2 (10:01→22:00)
[2021-02-24] MEDS: LIDOCAINE PATCH REMOVAL MC SCH (22:00)
[2021-02-24] MEDS: traZODone HCL 100 MG TABLET (FP) PO SCH (22:00)
[2021-02-24] MEDS: THIAMINE HCL 100 MG TABLET (FP) PO SCH (22:01)
[2021-02-25] MEDS: GABAPENTIN 400 MG CAPSULE PO SCH ×3 (06:52→21:51)
[2021-02-25] MEDS: ACETAMINOPHEN 325 MG TABLET (FP) PO PRN (06:53)
[2021-02-25] MEDS: PRENATAL VITAMINS W/ FOLIC ACID TABLET (FP) PO SCH (10:13)
[2021-02-25] MEDS: QUEtiapine FUMARATE 100 MG TABLET (FP) PO SCH (10:14)
[2021-02-25] MEDS: LIDOCAINE 5% TOPICAL PATCH TP SCH (10:14)
[2021-02-25] MEDS: NICOTINE 14 MG/24 HOURS TOPICAL PATCH TD SCH (10:15)
[2021-02-25] MEDS: traZODone HCL 100 MG TABLET (FP) PO SCH (21:50)
[2021-02-25] MEDS: THIAMINE HCL 100 MG TABLET (FP) PO SCH (21:50)
[2021-02-25] MEDS: QUEtiapine FUMARATE 200 MG TABLET PO SCH (21:50)
[2021-02-25] MEDS: LIDOCAINE PATCH REMOVAL MC SCH (21:51)
[2021-02-26] MEDS: GABAPENTIN 400 MG CAPSULE PO SCH ×3 (07:51→21:27)
[2021-02-26] MEDS: PRENATAL VITAMINS W/ FOLIC ACID TABLET (FP) PO SCH (10:10)
[2021-02-26] MEDS: QUEtiapine FUMARATE 100 MG TABLET (FP) PO SCH (10:11)
[2021-02-26] MEDS: LIDOCAINE 5% TOPICAL PATCH TP SCH (10:11)
[2021-02-26] MEDS: NICOTINE 14 MG/24 HOURS TOPICAL PATCH TD SCH (10:11)
[2021-02-26] MEDS: traZODone HCL 100 MG TABLET (FP) PO SCH (21:27)
[2021-02-26] MEDS: THIAMINE HCL 100 MG TABLET (FP) PO SCH (21:27)
[2021-02-26] MEDS: QUEtiapine FUMARATE 200 MG TABLET PO SCH (21:27)
[2021-02-26] MEDS: LIDOCAINE PATCH REMOVAL MC SCH (21:28)
[2021-02-27] MEDS: ACETAMINOPHEN 325 MG TABLET (FP) PO PRN (06:59)
[2021-02-27] MEDS: GABAPENTIN 400 MG CAPSULE PO SCH ×3 (07:00→22:04)
[2021-02-27] MEDS: LIDOCAINE 5% TOPICAL PATCH TP SCH (09:43)
[2021-02-27] MEDS: NICOTINE 14 MG/24 HOURS TOPICAL PATCH TD SCH (09:43)
[2021-02-27] MEDS: QUEtiapine FUMARATE 100 MG TABLET (FP) PO SCH (09:43)
[2021-02-27] MEDS: PRENATAL VITAMINS W/ FOLIC ACID TABLET (FP) PO SCH (09:43)
[2021-02-27] MEDS: traZODone HCL 100 MG TABLET (FP) PO SCH (22:04)
[2021-02-27] MEDS: QUEtiapine FUMARATE 200 MG TABLET PO SCH (22:04)
[2021-02-27] MEDS: THIAMINE HCL 100 MG TABLET (FP) PO SCH (22:04)
[2021-02-27] MEDS: LIDOCAINE PATCH REMOVAL MC SCH (22:04)
[2021-02-28] MEDS: GABAPENTIN 400 MG CAPSULE PO SCH ×3 (07:19→21:16)
[2021-02-28] MEDS: ACETAMINOPHEN 325 MG TABLET (FP) PO PRN (07:19)
[2021-02-28] MEDS: LIDOCAINE 5% TOPICAL PATCH TP SCH (09:50)
[2021-02-28] MEDS: QUEtiapine FUMARATE 100 MG TABLET (FP) PO SCH (09:50)
[2021-02-28] MEDS: PRENATAL VITAMINS W/ FOLIC ACID TABLET (FP) PO SCH (09:51)
[2021-02-28] MEDS: IBUPROFEN 400 MG TABLET (FP) PO PRN (09:51)
[2021-02-28] MEDS: NICOTINE 14 MG/24 HOURS TOPICAL PATCH TD SCH (09:51)
[2021-02-28] MEDS: THIAMINE HCL 100 MG TABLET (FP) PO SCH (21:16)
[2021-02-28] MEDS: traZODone HCL 100 MG TABLET (FP) PO SCH (21:16)
[2021-02-28] MEDS: QUEtiapine FUMARATE 200 MG TABLET PO SCH (21:16)
[2021-02-28] MEDS: LIDOCAINE PATCH REMOVAL MC SCH (21:18)
[2021-03-01] MEDS: GABAPENTIN 400 MG CAPSULE PO SCH ×3 (06:44→21:24)
[2021-03-01] MEDS: LIDOCAINE 5% TOPICAL PATCH TP SCH (10:08)
[2021-03-01] MEDS: PRENATAL VITAMINS W/ FOLIC ACID TABLET (FP) PO SCH (10:08)
[2021-03-01] MEDS: NICOTINE 14 MG/24 HOURS TOPICAL PATCH TD SCH (10:08)
[2021-03-01] MEDS: QUEtiapine FUMARATE 100 MG TABLET (FP) PO SCH (10:10)
[2021-03-01] MEDS: THIAMINE HCL 100 MG TABLET (FP) PO SCH (21:25)
[2021-03-01] MEDS: traZODone HCL 100 MG TABLET (FP) PO SCH (21:25)
[2021-03-01] MEDS: QUEtiapine FUMARATE 200 MG TABLET PO SCH (21:25)
[2021-03-01] MEDS: LIDOCAINE PATCH REMOVAL MC SCH (21:25)
[2021-03-02] MEDS: GABAPENTIN 400 MG CAPSULE PO SCH (06:29)
[2021-03-02 06:59] VITALS: BP 128/85; PULSE 85; TEMP 97.9
[2021-03-02] MEDS: IBUPROFEN 400 MG TABLET (FP) PO PRN (09:09)
[2021-03-02] MEDS: PRENATAL VITAMINS W/ FOLIC ACID TABLET (FP) PO SCH (09:09)
[2021-03-02] MEDS: QUEtiapine FUMARATE 100 MG TABLET (FP) PO SCH (09:09)
[2021-03-02] MEDS: LIDOCAINE 5% TOPICAL PATCH TP SCH (09:11)
[2021-03-02] MEDS: NICOTINE 14 MG/24 HOURS TOPICAL PATCH TD SCH (09:14)
== END 2021-03-02 09:20 | disposition home or self-care (01) | DRG 772 ==
LOC: YASAS 11:59 → Y5N 12:00
PROVIDERS: ADMIT Allergy & Immunology; ATTEND Allergy & Immunology
PROC: HZ42ZZZ Group Counseling for Substance Abuse Treatment, Cognitive-Behavioral (ICD-10-PCS; principal; 2021-02-16)
DX: F11.20 Opioid dependence, uncomplicated (principal); F10.20 Alcohol dependence, uncomplicated; F14.20 Cocaine dependence, uncomplicated; F12.20 Cannabis dependence, uncomplicated; F17.210 Nicotine dependence, cigarettes, uncomplicated; F31.9 Bipolar disorder, unspecified; F19.282 Other psychoactive substance dependence with psychoactive substance-induced sleep disorder; F19.24 Other psychoactive substance dependence with psychoactive substance-induced mood disorder; M06.9 Rheumatoid arthritis, unspecified; M54.5 Low back pain; G89.29 Other chronic pain

== ENCOUNTER 2021-06-13 10:16 | Inpatient (IN) | payer OTHER ==
[2021-06-13] MEDS ORDERED: MAGNESIUM CITRATE 300 ML BOTTLE PO PRN (11:23)
[2021-06-13] MEDS ORDERED: MAGNESIUM HYDROX 2400MG/30ML ORAL SUSPENSION 30 ML CUP PO PRN (11:23)
[2021-06-13] MEDS ORDERED: BISMUTH SUBSALICYLATE 262 MG/15 ML BTL PO PRN (11:23)
[2021-06-13] MEDS ORDERED: NICOTINE 10 MG CARTRIDGE (INHALER) IH PRN (11:23)
[2021-06-13] MEDS ORDERED: METHOCARBAMOL 500 MG TABLET PO PRN (11:23)
[2021-06-13] MEDS ORDERED: ACETAMINOPHEN 325 MG TABLET (FP) PO PRN (11:23)
[2021-06-13] MEDS ORDERED: MAG HYDROX/AL HYDROX/SIMETH 30 ML UNIT-DOSE CUP PO PRN (11:23)
[2021-06-13] MEDS ORDERED: ONDANSETRON *ODT* 4 MG TABLET SL PRN (11:23)
[2021-06-13] MEDS ORDERED: MENTHOL/PHENOL 1 EACH UD MM PRN (11:23)
[2021-06-13 11:26] VITALS: BMI 25.0
[2021-06-13] MEDS: hydrOXYzine PAMOATE 25 MG CAPSULE (FP) PO SCH ×3 (14:35→22:38)
[2021-06-13 15:10] LABS: HEMATOCRIT 42.4 % (35.4-49); HEMOGLOBIN 14.4 GM/dL (11.7-16.9); MCH 30.6 pg (25.7-33.7); MEAN CELL VOLUME 89.9 fl (80-96); MEAN PLT VOLUME 8.2 fl (7.5-11.1); PLATELET COUNT 387 10^3/uL (134-434); RBC 4.71 M/mm3 (4.00-5.60); RDW 13.4 % (11.9-15.9); WHITE BLOOD COUNT 5.2 K/mm3 (4.0-10.0)
[2021-06-13 15:18] LABS: CREATININE 1.1 mg/dL (0.55-1.3)
[2021-06-13 15:19] LABS: ALBUMIN 3.6 g/dl (3.4-5.0); BLOOD UREA NITROGEN 12.8 mg/dL (7-18)
[2021-06-13 15:21] LABS: CALCIUM 9.3 mg/dL (8.5-10.1); TOT PROT 6.7 g/dl (6.4-8.2)
[2021-06-13 15:30] LABS: BILIRUBIN,TOTAL 0.6 mg/dL (0.2-1)
[2021-06-13] MEDS: ACETAMINOPHEN 325 MG TABLET (FP) PO PRN (17:40)
[2021-06-13] MEDS ORDERED: MELATONIN 5 MG TABLETS PO SCH (22:00)
[2021-06-13] MEDS: THIAMINE HCL 100 MG TABLET (FP) PO SCH (22:38)
[2021-06-14] MEDS: hydrOXYzine PAMOATE 25 MG CAPSULE (FP) PO SCH ×2 (06:17→14:28)
[2021-06-14] MEDS ORDERED: chlordiazePOXIDE HCL 25 MG CAPSULE PO PRN (10:43)
[2021-06-14] MEDS: PRENATAL VITAMINS W/ FOLIC ACID TABLET (FP) PO SCH (14:24)
[2021-06-14] MEDS: chlordiazePOXIDE HCL 25 MG CAPSULE PO SCH ×3 (14:27→22:31)
[2021-06-14] MEDS: GABAPENTIN 400 MG CAPSULE PO SCH ×2 (14:27→22:30)
[2021-06-14] MEDS: ACETAMINOPHEN 325 MG TABLET (FP) PO PRN (17:52)
[2021-06-14] MEDS: hydrOXYzine PAMOATE 25 MG CAPSULE (FP) PO PRN (22:30)
[2021-06-14] MEDS: THIAMINE HCL 100 MG TABLET (FP) PO SCH (22:31)
[2021-06-14] MEDS: QUEtiapine FUMARATE 200 MG TABLET PO SCH (22:31)
[2021-06-15] MEDS: chlordiazePOXIDE HCL 25 MG CAPSULE PO SCH ×4 (06:39→22:53)
[2021-06-15] MEDS: GABAPENTIN 400 MG CAPSULE PO SCH ×3 (06:50→22:53)
[2021-06-15] MEDS: ACETAMINOPHEN 325 MG TABLET (FP) PO PRN (10:40)
[2021-06-15] MEDS: PRENATAL VITAMINS W/ FOLIC ACID TABLET (FP) PO SCH (13:48)
[2021-06-15] MEDS: QUEtiapine FUMARATE 200 MG TABLET PO SCH (22:53)
[2021-06-15] MEDS: THIAMINE HCL 100 MG TABLET (FP) PO SCH (22:53)
[2021-06-16] MEDS: GABAPENTIN 400 MG CAPSULE PO SCH ×3 (06:49→22:03)
[2021-06-16] MEDS: chlordiazePOXIDE HCL 25 MG CAPSULE PO SCH ×4 (06:53→22:03)
[2021-06-16] MEDS: PRENATAL VITAMINS W/ FOLIC ACID TABLET (FP) PO SCH (10:20)
[2021-06-16] MEDS: ACETAMINOPHEN 325 MG TABLET (FP) PO PRN (18:30)
[2021-06-16] MEDS: THIAMINE HCL 100 MG TABLET (FP) PO SCH (22:03)
[2021-06-16] MEDS: QUEtiapine FUMARATE 200 MG TABLET PO SCH (22:03)
[2021-06-17] MEDS ORDERED: chlordiazePOXIDE HCL 10 MG CAPSULE PO PRN
[2021-06-17] MEDS: GABAPENTIN 400 MG CAPSULE PO SCH ×3 (06:59→22:05)
[2021-06-17] MEDS: chlordiazePOXIDE HCL 10 MG CAPSULE PO SCH ×4 (07:24→22:07)
[2021-06-17] MEDS: ACETAMINOPHEN 325 MG TABLET (FP) PO PRN ×2 (10:51→18:08)
[2021-06-17] MEDS: PRENATAL VITAMINS W/ FOLIC ACID TABLET (FP) PO SCH (10:53)
[2021-06-17] MEDS: QUEtiapine FUMARATE 200 MG TABLET PO SCH (22:05)
[2021-06-17] MEDS: THIAMINE HCL 100 MG TABLET (FP) PO SCH (22:05)
[2021-06-18] MEDS: chlordiazePOXIDE HCL 10 MG CAPSULE PO SCH ×2 (07:28→21:00)
[2021-06-18] MEDS: GABAPENTIN 400 MG CAPSULE PO SCH ×3 (07:29→21:42)
[2021-06-18] MEDS: PRENATAL VITAMINS W/ FOLIC ACID TABLET (FP) PO SCH (10:55)
[2021-06-18] MEDS: hydrOXYzine PAMOATE 25 MG CAPSULE (FP) PO PRN (10:55)
[2021-06-18] MEDS: QUEtiapine FUMARATE 200 MG TABLET PO SCH (21:42)
[2021-06-18] MEDS: THIAMINE HCL 100 MG TABLET (FP) PO SCH (21:43)
[2021-06-19] MEDS ORDERED: chlordiazePOXIDE HCL 10 MG CAPSULE PO ONE (05:00)
[2021-06-19] MEDS: GABAPENTIN 400 MG CAPSULE PO SCH ×3 (07:01→21:13)
[2021-06-19] MEDS: PRENATAL VITAMINS W/ FOLIC ACID TABLET (FP) PO SCH (10:05)
[2021-06-19] MEDS: ACETAMINOPHEN 325 MG TABLET (FP) PO PRN ×2 (10:06→16:39)
[2021-06-19] MEDS ORDERED: PT OWN MED DRAWER 7, Y5N ONE (16:09)
[2021-06-19] MEDS: QUEtiapine FUMARATE 200 MG TABLET PO SCH (21:13)
[2021-06-19] MEDS: THIAMINE HCL 100 MG TABLET (FP) PO SCH (21:14)
[2021-06-20] MEDS: GABAPENTIN 400 MG CAPSULE PO SCH ×3 (07:51→21:38)
[2021-06-20] MEDS: PRENATAL VITAMINS W/ FOLIC ACID TABLET (FP) PO SCH (09:32)
[2021-06-20] MEDS: THIAMINE HCL 100 MG TABLET (FP) PO SCH (21:38)
[2021-06-20] MEDS: QUEtiapine FUMARATE 200 MG TABLET PO SCH (21:38)
[2021-06-20] MEDS: ACETAMINOPHEN 325 MG TABLET (FP) PO PRN (21:40)
[2021-06-21] MEDS: GABAPENTIN 400 MG CAPSULE PO SCH ×3 (06:48→21:17)
[2021-06-21] MEDS: ACETAMINOPHEN 325 MG TABLET (FP) PO PRN ×3 (06:49→21:18)
[2021-06-21] MEDS: PRENATAL VITAMINS W/ FOLIC ACID TABLET (FP) PO SCH (09:53)
[2021-06-21] MEDS ORDERED: PT OWN MED DRAWER 7, Y5N ONE (12:20)
[2021-06-21] MEDS: THIAMINE HCL 100 MG TABLET (FP) PO SCH (21:17)
[2021-06-21] MEDS: QUEtiapine FUMARATE 200 MG TABLET PO SCH (21:17)
[2021-06-21] MEDS: hydrOXYzine PAMOATE 25 MG CAPSULE (FP) PO PRN (21:17)
[2021-06-22] MEDS: ACETAMINOPHEN 325 MG TABLET (FP) PO PRN ×2 (07:00→13:38)
[2021-06-22] MEDS: GABAPENTIN 400 MG CAPSULE PO SCH ×3 (07:00→21:48)
[2021-06-22] MEDS: PRENATAL VITAMINS W/ FOLIC ACID TABLET (FP) PO SCH (10:20)
[2021-06-22] MEDS: QUEtiapine FUMARATE 200 MG TABLET PO SCH (21:47)
[2021-06-22] MEDS: THIAMINE HCL 100 MG TABLET (FP) PO SCH (21:48)
[2021-06-22] MEDS: IBUPROFEN 400 MG TABLET (FP) PO PRN (21:49)
[2021-06-23] MEDS: ACETAMINOPHEN 325 MG TABLET (FP) PO PRN ×2 (06:32→21:19)
[2021-06-23] MEDS: GABAPENTIN 400 MG CAPSULE PO SCH ×3 (06:32→21:19)
[2021-06-23] MEDS: PRENATAL VITAMINS W/ FOLIC ACID TABLET (FP) PO SCH (10:04)
[2021-06-23] MEDS ORDERED: PT OWN MED DRAWER 7, Y5N ONE (13:17)
[2021-06-23] MEDS: LIDOCAINE 5% TOPICAL PATCH TP SCH (13:46)
[2021-06-23] MEDS: THIAMINE HCL 100 MG TABLET (FP) PO SCH (21:19)
[2021-06-23] MEDS: LIDOCAINE PATCH REMOVAL MC SCH (21:19)
[2021-06-23] MEDS: QUEtiapine FUMARATE 200 MG TABLET PO SCH (21:19)
[2021-06-24] MEDS: GABAPENTIN 400 MG CAPSULE PO SCH ×3 (06:41→21:41)
[2021-06-24] MEDS: ACETAMINOPHEN 325 MG TABLET (FP) PO PRN ×2 (06:41→21:43)
[2021-06-24] MEDS: PRENATAL VITAMINS W/ FOLIC ACID TABLET (FP) PO SCH (10:15)
[2021-06-24] MEDS: LIDOCAINE 5% TOPICAL PATCH TP SCH (10:16)
[2021-06-24] MEDS: LIDOCAINE PATCH REMOVAL MC SCH (21:41)
[2021-06-24] MEDS: THIAMINE HCL 100 MG TABLET (FP) PO SCH (21:41)
[2021-06-24] MEDS: QUEtiapine FUMARATE 200 MG TABLET PO SCH (21:41)
[2021-06-25] MEDS: ACETAMINOPHEN 325 MG TABLET (FP) PO PRN (07:17)
[2021-06-25] MEDS: GABAPENTIN 400 MG CAPSULE PO SCH ×3 (07:17→21:42)
[2021-06-25] MEDS: PRENATAL VITAMINS W/ FOLIC ACID TABLET (FP) PO SCH (10:12)
[2021-06-25] MEDS: LIDOCAINE 5% TOPICAL PATCH TP SCH (10:12)
[2021-06-25] MEDS ORDERED: PT OWN MED DRAWER 7, Y5N ONE (10:13)
[2021-06-25] MEDS: LIDOCAINE PATCH REMOVAL MC SCH (21:41)
[2021-06-25] MEDS: QUEtiapine FUMARATE 200 MG TABLET PO SCH (21:42)
[2021-06-25] MEDS: THIAMINE HCL 100 MG TABLET (FP) PO SCH (21:42)
[2021-06-26] MEDS: GABAPENTIN 400 MG CAPSULE PO SCH ×3 (06:49→21:36)
[2021-06-26] MEDS: LIDOCAINE 5% TOPICAL PATCH TP SCH (09:38)
[2021-06-26] MEDS: PRENATAL VITAMINS W/ FOLIC ACID TABLET (FP) PO SCH (09:39)
[2021-06-26] MEDS ORDERED: PT OWN MED DRAWER 7, Y5N ONE (11:59)
[2021-06-26] MEDS: THIAMINE HCL 100 MG TABLET (FP) PO SCH (21:36)
[2021-06-26] MEDS: QUEtiapine FUMARATE 200 MG TABLET PO SCH (21:36)
[2021-06-26] MEDS: LIDOCAINE PATCH REMOVAL MC SCH (21:37)
[2021-06-27] MEDS: GABAPENTIN 400 MG CAPSULE PO SCH ×3 (06:43→21:16)
[2021-06-27] MEDS: ACETAMINOPHEN 325 MG TABLET (FP) PO PRN ×2 (06:43→21:16)
[2021-06-27] MEDS: PRENATAL VITAMINS W/ FOLIC ACID TABLET (FP) PO SCH (09:25)
[2021-06-27] MEDS: LIDOCAINE 5% TOPICAL PATCH TP SCH (09:25)
[2021-06-27] MEDS: LIDOCAINE PATCH REMOVAL MC SCH (21:15)
[2021-06-27] MEDS: THIAMINE HCL 100 MG TABLET (FP) PO SCH (21:16)
[2021-06-27] MEDS: QUEtiapine FUMARATE 200 MG TABLET PO SCH (21:16)
[2021-06-28] MEDS: GABAPENTIN 400 MG CAPSULE PO SCH ×3 (07:53→21:46)
[2021-06-28] MEDS: ACETAMINOPHEN 325 MG TABLET (FP) PO PRN ×2 (07:53→19:51)
[2021-06-28] MEDS: PRENATAL VITAMINS W/ FOLIC ACID TABLET (FP) PO SCH (09:41)
[2021-06-28] MEDS: LIDOCAINE 5% TOPICAL PATCH TP SCH (09:41)
[2021-06-28] MEDS: QUEtiapine FUMARATE 200 MG TABLET PO SCH (21:46)
[2021-06-28] MEDS: THIAMINE HCL 100 MG TABLET (FP) PO SCH (21:46)
[2021-06-28] MEDS: LIDOCAINE PATCH REMOVAL MC SCH (21:47)
[2021-06-29] MEDS: GABAPENTIN 400 MG CAPSULE PO SCH ×3 (06:41→21:41)
[2021-06-29] MEDS: ACETAMINOPHEN 325 MG TABLET (FP) PO PRN (06:42)
[2021-06-29] MEDS: LIDOCAINE 5% TOPICAL PATCH TP SCH (09:58)
[2021-06-29] MEDS: PRENATAL VITAMINS W/ FOLIC ACID TABLET (FP) PO SCH (09:58)
[2021-06-29] MEDS: IBUPROFEN 400 MG TABLET (FP) PO PRN (09:59)
[2021-06-29] MEDS: LIDOCAINE PATCH REMOVAL MC SCH (21:40)
[2021-06-29] MEDS: QUEtiapine FUMARATE 200 MG TABLET PO SCH (21:41)
[2021-06-29] MEDS: THIAMINE HCL 100 MG TABLET (FP) PO SCH (21:41)
[2021-06-30] MEDS: GABAPENTIN 400 MG CAPSULE PO SCH ×3 (07:24→21:48)
[2021-06-30] MEDS: ACETAMINOPHEN 325 MG TABLET (FP) PO PRN (07:26)
[2021-06-30] MEDS ORDERED: PT OWN MED DRAWER 7, Y5N ONE ×2 (08:23→12:30)
[2021-06-30] MEDS: PRENATAL VITAMINS W/ FOLIC ACID TABLET (FP) PO SCH (09:31)
[2021-06-30] MEDS: LIDOCAINE 5% TOPICAL PATCH TP SCH (09:31)
[2021-06-30] MEDS: IBUPROFEN 400 MG TABLET (FP) PO PRN (09:33)
[2021-06-30] MEDS: LIDOCAINE PATCH REMOVAL MC SCH (21:47)
[2021-06-30] MEDS: QUEtiapine FUMARATE 200 MG TABLET PO SCH (21:48)
[2021-06-30] MEDS: THIAMINE HCL 100 MG TABLET (FP) PO SCH (21:48)
[2021-07-01] MEDS: GABAPENTIN 400 MG CAPSULE PO SCH (06:51)
[2021-07-01 07:44] VITALS: BP 133/91; PULSE 86; TEMP 98.2
[2021-07-01] MEDS: PRENATAL VITAMINS W/ FOLIC ACID TABLET (FP) PO SCH (09:01)
[2021-07-01] MEDS: LIDOCAINE 5% TOPICAL PATCH TP SCH (09:01)
== END 2021-07-01 09:05 | disposition home or self-care (01) | DRG 772 ==
LOC: YASAS 10:16 → Y3N 12:17 → Y3E 06-18 14:15
PROVIDERS: ADMIT Allergy & Immunology; ATTEND Allergy & Immunology
PROC: HZ2ZZZZ Detoxification Services for Substance Abuse Treatment (ICD-10-PCS; 2021-06-13)
PROC: HZ42ZZZ Group Counseling for Substance Abuse Treatment, Cognitive-Behavioral (ICD-10-PCS; principal; 2021-06-18)
DX: F10.20 Alcohol dependence, uncomplicated (principal); F14.20 Cocaine dependence, uncomplicated; F12.20 Cannabis dependence, uncomplicated; F17.210 Nicotine dependence, cigarettes, uncomplicated; F19.282 Other psychoactive substance dependence with psychoactive substance-induced sleep disorder; F19.24 Other psychoactive substance dependence with psychoactive substance-induced mood disorder; F31.9 Bipolar disorder, unspecified; G62.9 Polyneuropathy, unspecified; M06.9 Rheumatoid arthritis, unspecified; M54.50 Low back pain, unspecified; G89.29 Other chronic pain; Z86.79 Personal history of other diseases of the circulatory system; Z91.19 Patient's noncompliance with other medical treatment and regimen
CPT/HCPCS: 36415; 80053; 85027; 85730; 86780; C9803; U0003; U0005

== ENCOUNTER 2021-12-05 12:36 | Inpatient (IN) | payer OTHER ==
[2021-12-05 13:42] VITALS: BMI 23.3
[2021-12-05] MEDS ORDERED: BENZOCAINE/MENTHOL (CHLORASEPTIC ) LOZENGE MM PRN (16:46)
[2021-12-05] MEDS ORDERED: ACETAMINOPHEN 325 MG TABLET (FP) PO PRN (16:46)
[2021-12-05] MEDS ORDERED: LOPERAMIDE HCL 2 MG CAPSULE PO PRN (16:46)
[2021-12-05] MEDS ORDERED: hydrOXYzine PAMOATE 25 MG CAPSULE (FP) PO PRN (16:46)
[2021-12-05] MEDS ORDERED: BISMUTH SUBSALICYLATE 524 MG/30 ML PO PRN (16:46)
[2021-12-05] MEDS ORDERED: MAGNESIUM CITRATE 300 ML BOTTLE PO PRN (16:46)
[2021-12-05] MEDS ORDERED: IBUPROFEN 400 MG TABLET (FP) PO PRN (16:46)
[2021-12-05] MEDS ORDERED: MAG HYDROX/AL HYDROX/SIMETH 30 ML UNIT-DOSE CUP PO PRN (16:46)
[2021-12-05] MEDS ORDERED: IBUPROFEN 600 MG TABLET (FP) PO PRN (16:46)
[2021-12-05] MEDS ORDERED: MELATONIN 5 MG TABLETS PO PRN (16:46)
[2021-12-05] MEDS ORDERED: P-EPHED 60MG/TRIPROLIDI 2.5MG TABLET PO PRN (16:46)
[2021-12-05] MEDS ORDERED: MAGNESIUM HYDROX 2400MG/30ML ORAL SUSPENSION 30 ML CUP PO PRN (16:46)
[2021-12-05] MEDS ORDERED: ONDANSETRON *ODT* 4 MG TABLET SL PRN (16:46)
[2021-12-05] MEDS ORDERED: DICYCLOMINE HCL 10 MG CAPSULE PO PRN (16:46)
[2021-12-05] MEDS: THIAMINE HCL 100 MG TABLET (FP) PO SCH ×2 (22:41→23:37)
[2021-12-05] MEDS: ACETAMINOPHEN 325 MG TABLET (FP) PO PRN (23:37)
[2021-12-05] MEDS: METHOCARBAMOL 500 MG TABLET PO PRN (23:38)
[2021-12-06] MEDS ORDERED: chlordiazePOXIDE HCL 25 MG CAPSULE PO PRN (09:46)
[2021-12-06] MEDS: ASPIRIN 81 MG CHEWABLE TABLETS PO SCH (10:31)
[2021-12-06] MEDS: PRENATAL VITAMINS W/ FOLIC ACID TABLET (FP) PO SCH (10:31)
[2021-12-06] MEDS: chlordiazePOXIDE HCL 25 MG CAPSULE PO SCH ×3 (10:35→22:18)
[2021-12-06 15:49] LABS: HEMATOCRIT 40.1 % (35.4-49); HEMOGLOBIN 13.5 GM/dL (11.7-16.9); MCH 29.8 pg (25.7-33.7); MCHC 33.6 g/dl (32.0-35.9); MEAN CELL VOLUME 88.7 fl (80-96); MEAN PLT VOLUME 7.8 fl (7.5-11.1); PLATELET COUNT 325 10^3/uL (134-434); RBC 4.52 M/mm3 (4.00-5.60); RDW 13.2 % (11.9-15.9); WHITE BLOOD COUNT 4.3 K/mm3 (4.0-10.0)
[2021-12-06 15:50] LABS: ALBUMIN 3.2 g/dl (3.4-5.0); BLOOD UREA NITROGEN 11.6 mg/dL (7-18); CALCIUM 9.1 mg/dL (8.5-10.1)
[2021-12-06 15:53] LABS: CREATININE 0.9 mg/dL (0.55-1.3)
[2021-12-06 15:55] LABS: BILIRUBIN,TOTAL 0.2 mg/dL (0.2-1); TOT PROT 5.6 g/dl (6.4-8.2)
[2021-12-06] MEDS: QUEtiapine FUMARATE 200 MG TABLET PO SCH (22:15)
[2021-12-06] MEDS: THIAMINE HCL 100 MG TABLET (FP) PO SCH (22:15)
[2021-12-06] MEDS: GABAPENTIN 300 MG CAPSULE PO SCH (22:15)
[2021-12-06] MEDS: traZODone HCL 50 MG TABLET (FP) PO SCH (22:15)
[2021-12-06] MEDS: METHOCARBAMOL 500 MG TABLET PO PRN (22:16)
[2021-12-07] MEDS: GABAPENTIN 300 MG CAPSULE PO SCH ×3 (06:40→22:16)
[2021-12-07] MEDS: chlordiazePOXIDE HCL 25 MG CAPSULE PO SCH ×4 (06:41→22:16)
[2021-12-07] MEDS: ASPIRIN 81 MG CHEWABLE TABLETS PO SCH (10:27)
[2021-12-07] MEDS: PRENATAL VITAMINS W/ FOLIC ACID TABLET (FP) PO SCH (10:27)
[2021-12-07] MEDS: ACETAMINOPHEN 325 MG TABLET (FP) PO PRN (17:51)
[2021-12-07] MEDS: THIAMINE HCL 100 MG TABLET (FP) PO SCH (22:16)
[2021-12-07] MEDS: QUEtiapine FUMARATE 200 MG TABLET PO SCH (22:16)
[2021-12-07] MEDS: traZODone HCL 50 MG TABLET (FP) PO SCH (22:16)
[2021-12-07] MEDS: METHOCARBAMOL 500 MG TABLET PO PRN (22:17)
[2021-12-08] MEDS: chlordiazePOXIDE HCL 25 MG CAPSULE PO SCH ×4 (06:08→22:16)
[2021-12-08] MEDS: GABAPENTIN 300 MG CAPSULE PO SCH ×3 (06:08→22:17)
[2021-12-08] MEDS: ASPIRIN 81 MG CHEWABLE TABLETS PO SCH (10:46)
[2021-12-08] MEDS: PRENATAL VITAMINS W/ FOLIC ACID TABLET (FP) PO SCH (10:46)
[2021-12-08] MEDS: traZODone HCL 50 MG TABLET (FP) PO SCH (22:17)
[2021-12-08] MEDS: THIAMINE HCL 100 MG TABLET (FP) PO SCH (22:17)
[2021-12-08] MEDS: QUEtiapine FUMARATE 200 MG TABLET PO SCH (22:17)
[2021-12-09] MEDS ORDERED: chlordiazePOXIDE HCL 10 MG CAPSULE PO PRN
[2021-12-09] MEDS: chlordiazePOXIDE HCL 10 MG CAPSULE PO SCH ×3 (06:57→11:03)
[2021-12-09] MEDS: GABAPENTIN 300 MG CAPSULE PO SCH ×2 (06:58→15:07)
[2021-12-09] MEDS: ASPIRIN 81 MG CHEWABLE TABLETS PO SCH (10:48)
[2021-12-09] MEDS: PRENATAL VITAMINS W/ FOLIC ACID TABLET (FP) PO SCH (10:49)
[2021-12-09] MEDS: ACETAMINOPHEN 325 MG TABLET (FP) PO PRN (11:05)
[2021-12-09 12:54] VITALS: BP 123/80; PULSE 95; TEMP 97.1
[2021-12-10] MEDS ORDERED: chlordiazePOXIDE HCL 10 MG CAPSULE PO SCH (05:00)
[2021-12-11] MEDS ORDERED: chlordiazePOXIDE HCL 10 MG CAPSULE PO ONE (05:00)
== END 2021-12-09 15:17 | disposition other institution (70) | DRG 774 ==
LOC: YASAS 12:36 → Y3N 17:02
PROVIDERS: ADMIT Allergy & Immunology; ATTEND Surgery
PROC: HZ2ZZZZ Detoxification Services for Substance Abuse Treatment (ICD-10-PCS; principal; 2021-12-05)
DX: F10.230 Alcohol dependence with withdrawal, uncomplicated (principal); F14.20 Cocaine dependence, uncomplicated; F12.20 Cannabis dependence, uncomplicated; F17.210 Nicotine dependence, cigarettes, uncomplicated; F31.9 Bipolar disorder, unspecified; G62.9 Polyneuropathy, unspecified; G47.00 Insomnia, unspecified; G89.29 Other chronic pain; M54.50 Low back pain, unspecified; M06.9 Rheumatoid arthritis, unspecified; R26.89 Other abnormalities of gait and mobility; Z91.013 Allergy to seafood; Z91.018 Allergy to other foods
CPT/HCPCS: 36415; 80053; 85027; 86780; 87811; C9803-CS; U0003; U0005

== ENCOUNTER 2021-12-09 14:57 | Inpatient (IN) | payer OTHER ==
[2021-12-09] MEDS ORDERED: MAGNESIUM HYDROX 2400MG/30ML ORAL SUSPENSION 30 ML CUP PO PRN (16:26)
[2021-12-09] MEDS ORDERED: BENZOCAINE/MENTHOL (CHLORASEPTIC ) LOZENGE MM PRN (16:26)
[2021-12-09] MEDS ORDERED: LOPERAMIDE HCL 2 MG CAPSULE PO PRN (16:26)
[2021-12-09] MEDS ORDERED: MAG HYDROX/AL HYDROX/SIMETH 30 ML UNIT-DOSE CUP PO PRN (16:26)
[2021-12-09] MEDS ORDERED: NICOTINE 10 MG CARTRIDGE (INHALER) IH PRN (16:26)
[2021-12-09] MEDS ORDERED: hydrOXYzine PAMOATE 25 MG CAPSULE (FP) PO PRN (16:26)
[2021-12-09] MEDS ORDERED: P-EPHED 60MG/TRIPROLIDI 2.5MG TABLET PO PRN (16:26)
[2021-12-09] MEDS ORDERED: MAGNESIUM CITRATE 300 ML BOTTLE PO PRN (16:26)
[2021-12-09] MEDS ORDERED: guaiFENesin 200 MG/10 ML 10 ML UNIT-DOSE CUPS PO PRN (16:26)
[2021-12-09] MEDS: QUEtiapine FUMARATE 200 MG TABLET PO SCH (21:34)
[2021-12-09] MEDS: GABAPENTIN 300 MG CAPSULE PO SCH (21:34)
[2021-12-09] MEDS: THIAMINE HCL 100 MG TABLET (FP) PO SCH (21:34)
[2021-12-09] MEDS: traZODone HCL 50 MG TABLET (FP) PO SCH (21:35)
[2021-12-09] MEDS ORDERED: QUEtiapine FUMARATE 200 MG TABLET PO SCH (22:00)
[2021-12-09] MEDS ORDERED: MELATONIN 5 MG TABLETS PO SCH (22:00)
[2021-12-10] MEDS: GABAPENTIN 300 MG CAPSULE PO SCH ×3 (06:36→21:28)
[2021-12-10] MEDS: ACETAMINOPHEN 325 MG TABLET (FP) PO PRN (06:36)
[2021-12-10] MEDS: ASPIRIN 81 MG CHEWABLE TABLETS PO SCH (10:00)
[2021-12-10] MEDS: NICOTINE 7 MG/24 HOURS TOPICAL PATCH TD SCH (10:00)
[2021-12-10] MEDS: PRENATAL VITAMINS W/ FOLIC ACID TABLET (FP) PO SCH (10:00)
[2021-12-10] MEDS: THIAMINE HCL 100 MG TABLET (FP) PO SCH (21:26)
[2021-12-10] MEDS: traZODone HCL 50 MG TABLET (FP) PO SCH (21:28)
[2021-12-10] MEDS: QUEtiapine FUMARATE 200 MG TABLET PO SCH (21:28)
[2021-12-11] MEDS: GABAPENTIN 300 MG CAPSULE PO SCH ×3 (07:00→21:28)
[2021-12-11] MEDS: NICOTINE 7 MG/24 HOURS TOPICAL PATCH TD SCH (10:55)
[2021-12-11] MEDS: PRENATAL VITAMINS W/ FOLIC ACID TABLET (FP) PO SCH (10:55)
[2021-12-11] MEDS: ASPIRIN 81 MG CHEWABLE TABLETS PO SCH (12:25)
[2021-12-11] MEDS: IBUPROFEN 400 MG TABLET (FP) PO PRN (15:32)
[2021-12-11] MEDS: THIAMINE HCL 100 MG TABLET (FP) PO SCH (21:28)
[2021-12-11] MEDS: traZODone HCL 50 MG TABLET (FP) PO SCH (21:28)
[2021-12-11] MEDS: QUEtiapine FUMARATE 200 MG TABLET PO SCH (21:28)
[2021-12-12] MEDS: IBUPROFEN 400 MG TABLET (FP) PO PRN (07:15)
[2021-12-12] MEDS: GABAPENTIN 300 MG CAPSULE PO SCH ×3 (07:15→21:44)
[2021-12-12] MEDS: ACETAMINOPHEN 325 MG TABLET (FP) PO PRN (11:10)
[2021-12-12] MEDS: PRENATAL VITAMINS W/ FOLIC ACID TABLET (FP) PO SCH (11:10)
[2021-12-12] MEDS: NICOTINE 7 MG/24 HOURS TOPICAL PATCH TD SCH (11:10)
[2021-12-12] MEDS: ASPIRIN 81 MG CHEWABLE TABLETS PO SCH (11:10)
[2021-12-12] MEDS: traZODone HCL 50 MG TABLET (FP) PO SCH (21:44)
[2021-12-12] MEDS: THIAMINE HCL 100 MG TABLET (FP) PO SCH (21:44)
[2021-12-12] MEDS: QUEtiapine FUMARATE 200 MG TABLET PO SCH (21:44)
[2021-12-13] MEDS: GABAPENTIN 300 MG CAPSULE PO SCH ×3 (06:47→21:37)
[2021-12-13] MEDS: NICOTINE 7 MG/24 HOURS TOPICAL PATCH TD SCH (09:38)
[2021-12-13] MEDS: PRENATAL VITAMINS W/ FOLIC ACID TABLET (FP) PO SCH (09:38)
[2021-12-13] MEDS: ASPIRIN 81 MG CHEWABLE TABLETS PO SCH (09:38)
[2021-12-13] MEDS: ACETAMINOPHEN 325 MG TABLET (FP) PO PRN ×2 (09:39→21:37)
[2021-12-13] MEDS: THIAMINE HCL 100 MG TABLET (FP) PO SCH (21:36)
[2021-12-13] MEDS: QUEtiapine FUMARATE 200 MG TABLET PO SCH (21:37)
[2021-12-13] MEDS: traZODone HCL 50 MG TABLET (FP) PO SCH (21:37)
[2021-12-14] MEDS: GABAPENTIN 300 MG CAPSULE PO SCH ×3 (06:47→21:35)
[2021-12-14] MEDS: ASPIRIN 81 MG CHEWABLE TABLETS PO SCH (10:14)
[2021-12-14] MEDS: PRENATAL VITAMINS W/ FOLIC ACID TABLET (FP) PO SCH (10:14)
[2021-12-14] MEDS: NICOTINE 7 MG/24 HOURS TOPICAL PATCH TD SCH (10:15)
[2021-12-14] MEDS: THIAMINE HCL 100 MG TABLET (FP) PO SCH (21:34)
[2021-12-14] MEDS: QUEtiapine FUMARATE 200 MG TABLET PO SCH (21:34)
[2021-12-14] MEDS: traZODone HCL 50 MG TABLET (FP) PO SCH (21:34)
[2021-12-14] MEDS: ACETAMINOPHEN 325 MG TABLET (FP) PO PRN (22:37)
[2021-12-15] MEDS: GABAPENTIN 300 MG CAPSULE PO SCH ×3 (07:20→21:31)
[2021-12-15] MEDS: ASPIRIN 81 MG CHEWABLE TABLETS PO SCH (09:57)
[2021-12-15] MEDS: NICOTINE 7 MG/24 HOURS TOPICAL PATCH TD SCH (09:57)
[2021-12-15] MEDS: PRENATAL VITAMINS W/ FOLIC ACID TABLET (FP) PO SCH (09:57)
[2021-12-15] MEDS: THIAMINE HCL 100 MG TABLET (FP) PO SCH (21:31)
[2021-12-15] MEDS: QUEtiapine FUMARATE 200 MG TABLET PO SCH (21:31)
[2021-12-15] MEDS: traZODone HCL 50 MG TABLET (FP) PO SCH (21:31)
[2021-12-15] MEDS: ACETAMINOPHEN 325 MG TABLET (FP) PO PRN (21:36)
[2021-12-16] MEDS: GABAPENTIN 300 MG CAPSULE PO SCH ×3 (06:08→21:23)
[2021-12-16] MEDS: ASPIRIN 81 MG CHEWABLE TABLETS PO SCH (10:19)
[2021-12-16] MEDS: NICOTINE 7 MG/24 HOURS TOPICAL PATCH TD SCH (10:19)
[2021-12-16] MEDS: PRENATAL VITAMINS W/ FOLIC ACID TABLET (FP) PO SCH (10:19)
[2021-12-16] MEDS: ACETAMINOPHEN 325 MG TABLET (FP) PO PRN ×2 (13:52→21:23)
[2021-12-16] MEDS: THIAMINE HCL 100 MG TABLET (FP) PO SCH (21:23)
[2021-12-16] MEDS: traZODone HCL 50 MG TABLET (FP) PO SCH (21:23)
[2021-12-16] MEDS: QUEtiapine FUMARATE 200 MG TABLET PO SCH (21:23)
[2021-12-17] MEDS: GABAPENTIN 300 MG CAPSULE PO SCH ×3 (07:32→21:30)
[2021-12-17] MEDS: ASPIRIN 81 MG CHEWABLE TABLETS PO SCH (10:40)
[2021-12-17] MEDS: NICOTINE 7 MG/24 HOURS TOPICAL PATCH TD SCH (10:40)
[2021-12-17] MEDS: PRENATAL VITAMINS W/ FOLIC ACID TABLET (FP) PO SCH (10:40)
[2021-12-17] MEDS: ACETAMINOPHEN 325 MG TABLET (FP) PO PRN (21:30)
[2021-12-17] MEDS: traZODone HCL 50 MG TABLET (FP) PO SCH (21:30)
[2021-12-17] MEDS: QUEtiapine FUMARATE 200 MG TABLET PO SCH (21:30)
[2021-12-17] MEDS: THIAMINE HCL 100 MG TABLET (FP) PO SCH (21:30)
[2021-12-18] MEDS: GABAPENTIN 300 MG CAPSULE PO SCH ×3 (07:28→21:15)
[2021-12-18] MEDS: ASPIRIN 81 MG CHEWABLE TABLETS PO SCH (09:36)
[2021-12-18] MEDS: PRENATAL VITAMINS W/ FOLIC ACID TABLET (FP) PO SCH (09:37)
[2021-12-18] MEDS: NICOTINE 7 MG/24 HOURS TOPICAL PATCH TD SCH (09:37)
[2021-12-18] MEDS: traZODone HCL 50 MG TABLET (FP) PO SCH (21:15)
[2021-12-18] MEDS: QUEtiapine FUMARATE 200 MG TABLET PO SCH (21:15)
[2021-12-18] MEDS: THIAMINE HCL 100 MG TABLET (FP) PO SCH (21:38)
[2021-12-19] MEDS: GABAPENTIN 300 MG CAPSULE PO SCH ×3 (06:52→21:32)
[2021-12-19] MEDS: ACETAMINOPHEN 325 MG TABLET (FP) PO PRN (06:52)
[2021-12-19] MEDS: ASPIRIN 81 MG CHEWABLE TABLETS PO SCH (10:14)
[2021-12-19] MEDS: PRENATAL VITAMINS W/ FOLIC ACID TABLET (FP) PO SCH (10:14)
[2021-12-19] MEDS: NICOTINE 7 MG/24 HOURS TOPICAL PATCH TD SCH (10:15)
[2021-12-19] MEDS: THIAMINE HCL 100 MG TABLET (FP) PO SCH (21:32)
[2021-12-19] MEDS: QUEtiapine FUMARATE 200 MG TABLET PO SCH (21:32)
[2021-12-19] MEDS: traZODone HCL 50 MG TABLET (FP) PO SCH (21:32)
[2021-12-20] MEDS: GABAPENTIN 300 MG CAPSULE PO SCH ×3 (07:09→21:34)
[2021-12-20] MEDS: NICOTINE 7 MG/24 HOURS TOPICAL PATCH TD SCH (09:53)
[2021-12-20] MEDS: ASPIRIN 81 MG CHEWABLE TABLETS PO SCH (09:53)
[2021-12-20] MEDS: PRENATAL VITAMINS W/ FOLIC ACID TABLET (FP) PO SCH (09:53)
[2021-12-20] MEDS: traZODone HCL 50 MG TABLET (FP) PO SCH (21:34)
[2021-12-20] MEDS: THIAMINE HCL 100 MG TABLET (FP) PO SCH (21:34)
[2021-12-20] MEDS: QUEtiapine FUMARATE 200 MG TABLET PO SCH (21:34)
[2021-12-21] MEDS: GABAPENTIN 300 MG CAPSULE PO SCH ×3 (06:54→21:26)
[2021-12-21] MEDS: ASPIRIN 81 MG CHEWABLE TABLETS PO SCH (10:04)
[2021-12-21] MEDS: NICOTINE 7 MG/24 HOURS TOPICAL PATCH TD SCH (10:04)
[2021-12-21] MEDS: PRENATAL VITAMINS W/ FOLIC ACID TABLET (FP) PO SCH (10:04)
[2021-12-21] MEDS: QUEtiapine FUMARATE 200 MG TABLET PO SCH (21:26)
[2021-12-21] MEDS: traZODone HCL 50 MG TABLET (FP) PO SCH (21:26)
[2021-12-21] MEDS: THIAMINE HCL 100 MG TABLET (FP) PO SCH (21:26)
[2021-12-22] MEDS: GABAPENTIN 300 MG CAPSULE PO SCH ×3 (06:46→21:19)
[2021-12-22] MEDS: PRENATAL VITAMINS W/ FOLIC ACID TABLET (FP) PO SCH (10:07)
[2021-12-22] MEDS: ASPIRIN 81 MG CHEWABLE TABLETS PO SCH (10:07)
[2021-12-22] MEDS: NICOTINE 7 MG/24 HOURS TOPICAL PATCH TD SCH (10:08)
[2021-12-22] MEDS: IBUPROFEN 400 MG TABLET (FP) PO PRN (10:09)
[2021-12-22] MEDS: QUEtiapine FUMARATE 200 MG TABLET PO SCH (21:19)
[2021-12-22] MEDS: traZODone HCL 50 MG TABLET (FP) PO SCH (21:19)
[2021-12-22] MEDS: THIAMINE HCL 100 MG TABLET (FP) PO SCH (21:20)
[2021-12-23] MEDS: GABAPENTIN 300 MG CAPSULE PO SCH ×4 (06:58→21:38)
[2021-12-23] MEDS: IBUPROFEN 400 MG TABLET (FP) PO PRN (06:58)
[2021-12-23] MEDS: ASPIRIN 81 MG CHEWABLE TABLETS PO SCH (10:04)
[2021-12-23] MEDS: NICOTINE 7 MG/24 HOURS TOPICAL PATCH TD SCH (10:05)
[2021-12-23] MEDS: PRENATAL VITAMINS W/ FOLIC ACID TABLET (FP) PO SCH (10:05)
[2021-12-23] MEDS: THIAMINE HCL 100 MG TABLET (FP) PO SCH (21:38)
[2021-12-23] MEDS: traZODone HCL 50 MG TABLET (FP) PO SCH (21:38)
[2021-12-23] MEDS: QUEtiapine FUMARATE 200 MG TABLET PO SCH (21:38)
[2021-12-24] MEDS: GABAPENTIN 300 MG CAPSULE PO SCH ×3 (06:33→22:35)
[2021-12-24] MEDS: IBUPROFEN 400 MG TABLET (FP) PO PRN (06:56)
[2021-12-24] MEDS: ASPIRIN 81 MG CHEWABLE TABLETS PO SCH (09:37)
[2021-12-24] MEDS: NICOTINE 7 MG/24 HOURS TOPICAL PATCH TD SCH (09:38)
[2021-12-24] MEDS: PRENATAL VITAMINS W/ FOLIC ACID TABLET (FP) PO SCH (09:38)
[2021-12-24] MEDS: THIAMINE HCL 100 MG TABLET (FP) PO SCH (22:35)
[2021-12-24] MEDS: QUEtiapine FUMARATE 200 MG TABLET PO SCH (22:35)
[2021-12-24] MEDS: traZODone HCL 50 MG TABLET (FP) PO SCH (22:35)
[2021-12-25] MEDS: IBUPROFEN 400 MG TABLET (FP) PO PRN (06:31)
[2021-12-25] MEDS: GABAPENTIN 300 MG CAPSULE PO SCH ×3 (06:31→21:51)
[2021-12-25] MEDS: ASPIRIN 81 MG CHEWABLE TABLETS PO SCH (09:31)
[2021-12-25] MEDS: PRENATAL VITAMINS W/ FOLIC ACID TABLET (FP) PO SCH (09:31)
[2021-12-25] MEDS: NICOTINE 7 MG/24 HOURS TOPICAL PATCH TD SCH (09:32)
[2021-12-25] MEDS: QUEtiapine FUMARATE 200 MG TABLET PO SCH (21:51)
[2021-12-25] MEDS: THIAMINE HCL 100 MG TABLET (FP) PO SCH (21:51)
[2021-12-25] MEDS: traZODone HCL 50 MG TABLET (FP) PO SCH (21:51)
[2021-12-26] MEDS: GABAPENTIN 300 MG CAPSULE PO SCH ×3 (07:10→21:53)
[2021-12-26] MEDS: NICOTINE 7 MG/24 HOURS TOPICAL PATCH TD SCH (09:59)
[2021-12-26] MEDS: ASPIRIN 81 MG CHEWABLE TABLETS PO SCH (09:59)
[2021-12-26] MEDS: PRENATAL VITAMINS W/ FOLIC ACID TABLET (FP) PO SCH (09:59)
[2021-12-26] MEDS: QUEtiapine FUMARATE 200 MG TABLET PO SCH (21:53)
[2021-12-26] MEDS: THIAMINE HCL 100 MG TABLET (FP) PO SCH (21:53)
[2021-12-26] MEDS: traZODone HCL 50 MG TABLET (FP) PO SCH (21:53)
[2021-12-27] MEDS: GABAPENTIN 300 MG CAPSULE PO SCH ×3 (06:39→21:28)
[2021-12-27] MEDS: PRENATAL VITAMINS W/ FOLIC ACID TABLET (FP) PO SCH (10:08)
[2021-12-27] MEDS: ASPIRIN 81 MG CHEWABLE TABLETS PO SCH (10:08)
[2021-12-27] MEDS: NICOTINE 7 MG/24 HOURS TOPICAL PATCH TD SCH (10:08)
[2021-12-27] MEDS: IBUPROFEN 400 MG TABLET (FP) PO PRN (10:09)
[2021-12-27] MEDS: traZODone HCL 50 MG TABLET (FP) PO SCH (21:28)
[2021-12-27] MEDS: QUEtiapine FUMARATE 200 MG TABLET PO SCH (21:28)
[2021-12-27] MEDS: THIAMINE HCL 100 MG TABLET (FP) PO SCH (21:28)
[2021-12-28] MEDS: GABAPENTIN 300 MG CAPSULE PO SCH ×3 (06:23→21:40)
[2021-12-28] MEDS: ASPIRIN 81 MG CHEWABLE TABLETS PO SCH (10:02)
[2021-12-28] MEDS: PRENATAL VITAMINS W/ FOLIC ACID TABLET (FP) PO SCH (10:02)
[2021-12-28] MEDS: NICOTINE 7 MG/24 HOURS TOPICAL PATCH TD SCH (10:02)
[2021-12-28] MEDS: traZODone HCL 50 MG TABLET (FP) PO SCH (21:40)
[2021-12-28] MEDS: QUEtiapine FUMARATE 200 MG TABLET PO SCH (21:40)
[2021-12-28] MEDS: THIAMINE HCL 100 MG TABLET (FP) PO SCH (21:40)
[2021-12-29] MEDS: GABAPENTIN 300 MG CAPSULE PO SCH ×3 (06:26→21:37)
[2021-12-29] MEDS: NICOTINE 7 MG/24 HOURS TOPICAL PATCH TD SCH (09:56)
[2021-12-29] MEDS: PRENATAL VITAMINS W/ FOLIC ACID TABLET (FP) PO SCH (09:56)
[2021-12-29] MEDS: ASPIRIN 81 MG CHEWABLE TABLETS PO SCH (09:56)
[2021-12-29] MEDS: IBUPROFEN 400 MG TABLET (FP) PO PRN (09:57)
[2021-12-29] MEDS: traZODone HCL 50 MG TABLET (FP) PO SCH (21:37)
[2021-12-29] MEDS: QUEtiapine FUMARATE 200 MG TABLET PO SCH (21:37)
[2021-12-29] MEDS: ACETAMINOPHEN 325 MG TABLET (FP) PO PRN (21:37)
[2021-12-29] MEDS: THIAMINE HCL 100 MG TABLET (FP) PO SCH (21:39)
[2021-12-30] MEDS: GABAPENTIN 300 MG CAPSULE PO SCH (06:11)
[2021-12-30 07:00] VITALS: BP 113/75; PULSE 79; TEMP 98
[2021-12-30] MEDS: ASPIRIN 81 MG CHEWABLE TABLETS PO SCH (09:09)
[2021-12-30] MEDS: PRENATAL VITAMINS W/ FOLIC ACID TABLET (FP) PO SCH (09:09)
[2021-12-30] MEDS: NICOTINE 7 MG/24 HOURS TOPICAL PATCH TD SCH (09:09)
== END 2021-12-30 09:20 | disposition home or self-care (01) | DRG 772 ==
LOC: YASAS 14:57 → Y3E 14:58
PROVIDERS: ADMIT Allergy & Immunology; ATTEND Psychiatry & Neurology Pain Medicine
PROC: HZ42ZZZ Group Counseling for Substance Abuse Treatment, Cognitive-Behavioral (ICD-10-PCS; principal; 2021-12-09)
DX: F10.20 Alcohol dependence, uncomplicated (principal); F14.20 Cocaine dependence, uncomplicated; F17.210 Nicotine dependence, cigarettes, uncomplicated; M54.59 Other low back pain; G89.29 Other chronic pain; M19.90 Unspecified osteoarthritis, unspecified site; Z91.013 Allergy to seafood; Z56.0 Unemployment, unspecified

== ENCOUNTER 2022-02-09 11:25 | Inpatient (IN) | payer BC, OTHER ==
[2022-02-09 11:52] VITALS: BMI 22.6
[2022-02-09] MEDS ORDERED: LOPERAMIDE HCL 2 MG CAPSULE PO PRN (20:45)
[2022-02-09] MEDS ORDERED: NICOTINE POLACRILEX 2 MG GUM BC PRN (20:45)
[2022-02-09] MEDS ORDERED: MAGNESIUM HYDROX 2400MG/30ML ORAL SUSPENSION 30 ML CUP PO PRN (20:45)
[2022-02-09] MEDS ORDERED: hydrOXYzine PAMOATE 25 MG CAPSULE (FP) PO PRN (20:45)
[2022-02-09] MEDS ORDERED: P-EPHED 60MG/TRIPROLIDI 2.5MG TABLET PO PRN (20:45)
[2022-02-09] MEDS ORDERED: guaiFENesin 200 MG/10 ML 10 ML UNIT-DOSE CUPS PO PRN (20:45)
[2022-02-09] MEDS ORDERED: MAGNESIUM CITRATE 300 ML BOTTLE PO PRN (20:45)
[2022-02-09] MEDS ORDERED: MAG HYDROX/AL HYDROX/SIMETH 30 ML UNIT-DOSE CUP PO PRN (20:45)
[2022-02-09] MEDS ORDERED: MELATONIN 5 MG TABLETS PO SCH (22:00)
[2022-02-09] MEDS: THIAMINE HCL 100 MG TABLET (FP) PO SCH (22:04)
[2022-02-10 10:16] LABS: HEMATOCRIT 38.2 % (35.4-49); HEMOGLOBIN 13.4 GM/dL (11.7-16.9); MCH 30.7 pg (25.7-33.7); MCHC 34.9 g/dl (32.0-35.9); MEAN CELL VOLUME 87.9 fl (80-96); MEAN PLT VOLUME 7.5 fl (7.5-11.1); PLATELET COUNT 267 10^3/uL (134-434); RBC 4.35 M/mm3 (4.00-5.60); RDW 13.6 % (11.9-15.9); WHITE BLOOD COUNT 4.3 K/mm3 (4.0-10.0)
[2022-02-10 10:39] LABS: ALBUMIN 3.1 g/dl (3.4-5.0); CALCIUM 8.7 mg/dL (8.5-10.1)
[2022-02-10 10:44] LABS: BILIRUBIN,TOTAL 0.4 mg/dL (0.2-1); TOT PROT 5.6 g/dl (6.4-8.2)
[2022-02-10] MEDS: NICOTINE 14 MG/24 HOURS TOPICAL PATCH TD SCH (10:58)
[2022-02-10] MEDS: PRENATAL VITAMINS W/ FOLIC ACID TABLET (FP) PO SCH (10:58)
[2022-02-10] MEDS: GABAPENTIN 400 MG CAPSULE PO SCH ×2 (10:58→21:26)
[2022-02-10 11:50] LABS: SYPHILIS W/ RPR CONF NON-REACTIVE (NONREACTIVE)
[2022-02-10] MEDS: ACETAMINOPHEN 325 MG TABLET (FP) PO PRN (19:01)
[2022-02-10] MEDS: THIAMINE HCL 100 MG TABLET (FP) PO SCH (21:25)
[2022-02-10] MEDS: traZODone HCL 100 MG TABLET (FP) PO SCH (21:26)
[2022-02-10] MEDS: QUEtiapine FUMARATE 200 MG TABLET PO SCH (21:26)
[2022-02-11] MEDS: PRENATAL VITAMINS W/ FOLIC ACID TABLET (FP) PO SCH (09:36)
[2022-02-11] MEDS: GABAPENTIN 400 MG CAPSULE PO SCH ×2 (09:36→21:18)
[2022-02-11] MEDS: NICOTINE 14 MG/24 HOURS TOPICAL PATCH TD SCH (09:36)
[2022-02-11 16:40] LABS: URINE APPEARANCE TURBID; URINE BILIRUBIN NEGATIVE (NEGATIVE); URINE COLOR YELLOW; URINE GLUCOSE (UA) NEGATIVE (NEGATIVE); URINE KETONE NEGATIVE (NEGATIVE); URINE LEUK ESTERASE NEGATIVE (NEGATIVE); URINE NITRITE NEGATIVE (NEGATIVE); URINE PROTEIN NEGATIVE (NEGATIVE); URINE UROBILINOGEN 0.2 mg/dL (0.2-1.0)
[2022-02-11] MEDS: traZODone HCL 100 MG TABLET (FP) PO SCH (21:18)
[2022-02-11] MEDS: THIAMINE HCL 100 MG TABLET (FP) PO SCH (21:18)
[2022-02-11] MEDS: QUEtiapine FUMARATE 200 MG TABLET PO SCH (21:18)
[2022-02-12] MEDS: GABAPENTIN 400 MG CAPSULE PO SCH ×2 (09:48→21:05)
[2022-02-12] MEDS: PRENATAL VITAMINS W/ FOLIC ACID TABLET (FP) PO SCH (09:48)
[2022-02-12] MEDS: NICOTINE 14 MG/24 HOURS TOPICAL PATCH TD SCH (09:48)
[2022-02-12] MEDS: IBUPROFEN 400 MG TABLET (FP) PO PRN ×2 (09:50→21:07)
[2022-02-12] MEDS: THIAMINE HCL 100 MG TABLET (FP) PO SCH (21:06)
[2022-02-12] MEDS: traZODone HCL 100 MG TABLET (FP) PO SCH (21:06)
[2022-02-12] MEDS: QUEtiapine FUMARATE 200 MG TABLET PO SCH (21:06)
[2022-02-13] MEDS: GABAPENTIN 400 MG CAPSULE PO SCH ×2 (09:01→21:24)
[2022-02-13] MEDS: PRENATAL VITAMINS W/ FOLIC ACID TABLET (FP) PO SCH (09:01)
[2022-02-13] MEDS: NICOTINE 14 MG/24 HOURS TOPICAL PATCH TD SCH (09:02)
[2022-02-13] MEDS: QUEtiapine FUMARATE 200 MG TABLET PO SCH (21:24)
[2022-02-13] MEDS: traZODone HCL 100 MG TABLET (FP) PO SCH (21:24)
[2022-02-13] MEDS: THIAMINE HCL 100 MG TABLET (FP) PO SCH (21:24)
[2022-02-14] MEDS: GABAPENTIN 400 MG CAPSULE PO SCH ×2 (09:38→21:26)
[2022-02-14] MEDS: PRENATAL VITAMINS W/ FOLIC ACID TABLET (FP) PO SCH (09:38)
[2022-02-14] MEDS: NICOTINE 14 MG/24 HOURS TOPICAL PATCH TD SCH (09:39)
[2022-02-14] MEDS: QUEtiapine FUMARATE 200 MG TABLET PO SCH (21:26)
[2022-02-14] MEDS: THIAMINE HCL 100 MG TABLET (FP) PO SCH (21:26)
[2022-02-14] MEDS: traZODone HCL 100 MG TABLET (FP) PO SCH (21:26)
[2022-02-15] MEDS: GABAPENTIN 400 MG CAPSULE PO SCH ×2 (09:52→21:34)
[2022-02-15] MEDS: PRENATAL VITAMINS W/ FOLIC ACID TABLET (FP) PO SCH (09:53)
[2022-02-15] MEDS: NICOTINE 14 MG/24 HOURS TOPICAL PATCH TD SCH (09:53)
[2022-02-15] MEDS: QUEtiapine FUMARATE 200 MG TABLET PO SCH (21:34)
[2022-02-15] MEDS: THIAMINE HCL 100 MG TABLET (FP) PO SCH (21:34)
[2022-02-15] MEDS: traZODone HCL 100 MG TABLET (FP) PO SCH (21:34)
[2022-02-16] MEDS: ASPIRIN 81 MG CHEWABLE TABLETS PO SCH (09:45)
[2022-02-16] MEDS: GABAPENTIN 400 MG CAPSULE PO SCH ×2 (09:46→22:19)
[2022-02-16] MEDS: IBUPROFEN 400 MG TABLET (FP) PO PRN (09:46)
[2022-02-16] MEDS: PRENATAL VITAMINS W/ FOLIC ACID TABLET (FP) PO SCH (09:46)
[2022-02-16] MEDS: NICOTINE 14 MG/24 HOURS TOPICAL PATCH TD SCH (10:34)
[2022-02-16] MEDS: QUEtiapine FUMARATE 200 MG TABLET PO SCH (22:19)
[2022-02-16] MEDS: traZODone HCL 100 MG TABLET (FP) PO SCH (22:19)
[2022-02-16] MEDS: THIAMINE HCL 100 MG TABLET (FP) PO SCH (22:20)
[2022-02-17] MEDS: ASPIRIN 81 MG CHEWABLE TABLETS PO SCH (10:06)
[2022-02-17] MEDS: GABAPENTIN 400 MG CAPSULE PO SCH ×2 (10:06→21:37)
[2022-02-17] MEDS: PRENATAL VITAMINS W/ FOLIC ACID TABLET (FP) PO SCH (10:06)
[2022-02-17] MEDS: NICOTINE 14 MG/24 HOURS TOPICAL PATCH TD SCH (10:06)
[2022-02-17] MEDS: traZODone HCL 100 MG TABLET (FP) PO SCH (21:37)
[2022-02-17] MEDS: THIAMINE HCL 100 MG TABLET (FP) PO SCH (21:37)
[2022-02-17] MEDS: QUEtiapine FUMARATE 200 MG TABLET PO SCH (21:37)
[2022-02-17] MEDS: IBUPROFEN 400 MG TABLET (FP) PO PRN (21:37)
[2022-02-18] MEDS: NICOTINE 14 MG/24 HOURS TOPICAL PATCH TD SCH (09:15)
[2022-02-18] MEDS: GABAPENTIN 400 MG CAPSULE PO SCH ×2 (09:15→21:36)
[2022-02-18] MEDS: PRENATAL VITAMINS W/ FOLIC ACID TABLET (FP) PO SCH (09:15)
[2022-02-18] MEDS: ASPIRIN 81 MG CHEWABLE TABLETS PO SCH (09:15)
[2022-02-18] MEDS: QUEtiapine FUMARATE 200 MG TABLET PO SCH (21:36)
[2022-02-18] MEDS: traZODone HCL 100 MG TABLET (FP) PO SCH (21:36)
[2022-02-18] MEDS: THIAMINE HCL 100 MG TABLET (FP) PO SCH (21:36)
[2022-02-19] MEDS: IBUPROFEN 400 MG TABLET (FP) PO PRN (09:36)
[2022-02-19] MEDS: GABAPENTIN 400 MG CAPSULE PO SCH ×2 (09:37→21:05)
[2022-02-19] MEDS: PRENATAL VITAMINS W/ FOLIC ACID TABLET (FP) PO SCH (09:37)
[2022-02-19] MEDS: ASPIRIN 81 MG CHEWABLE TABLETS PO SCH (09:37)
[2022-02-19] MEDS: NICOTINE 14 MG/24 HOURS TOPICAL PATCH TD SCH (09:37)
[2022-02-19] MEDS: QUEtiapine FUMARATE 200 MG TABLET PO SCH (21:05)
[2022-02-19] MEDS: traZODone HCL 100 MG TABLET (FP) PO SCH (21:05)
[2022-02-19] MEDS: THIAMINE HCL 100 MG TABLET (FP) PO SCH (21:05)
[2022-02-20] MEDS: GABAPENTIN 400 MG CAPSULE PO SCH ×2 (09:49→21:32)
[2022-02-20] MEDS: PRENATAL VITAMINS W/ FOLIC ACID TABLET (FP) PO SCH (09:49)
[2022-02-20] MEDS: ASPIRIN 81 MG CHEWABLE TABLETS PO SCH (09:49)
[2022-02-20] MEDS: NICOTINE 10 MG CARTRIDGE (INHALER) IH SCH (10:29)
[2022-02-20] MEDS: QUEtiapine FUMARATE 200 MG TABLET PO SCH (21:31)
[2022-02-20] MEDS: traZODone HCL 100 MG TABLET (FP) PO SCH (21:32)
[2022-02-20] MEDS: THIAMINE HCL 100 MG TABLET (FP) PO SCH (21:32)
[2022-02-21] MEDS: GABAPENTIN 400 MG CAPSULE PO SCH ×2 (10:04→21:26)
[2022-02-21] MEDS: ASPIRIN 81 MG CHEWABLE TABLETS PO SCH (10:04)
[2022-02-21] MEDS: NICOTINE 10 MG CARTRIDGE (INHALER) IH SCH (10:05)
[2022-02-21] MEDS: PRENATAL VITAMINS W/ FOLIC ACID TABLET (FP) PO SCH (10:05)
[2022-02-21] MEDS: QUEtiapine FUMARATE 200 MG TABLET PO SCH (21:26)
[2022-02-21] MEDS: THIAMINE HCL 100 MG TABLET (FP) PO SCH (21:26)
[2022-02-21] MEDS: traZODone HCL 100 MG TABLET (FP) PO SCH (21:26)
[2022-02-22] MEDS: GABAPENTIN 400 MG CAPSULE PO SCH ×2 (09:43→21:36)
[2022-02-22] MEDS: NICOTINE 10 MG CARTRIDGE (INHALER) IH SCH (09:43)
[2022-02-22] MEDS: ASPIRIN 81 MG CHEWABLE TABLETS PO SCH (09:43)
[2022-02-22] MEDS: PRENATAL VITAMINS W/ FOLIC ACID TABLET (FP) PO SCH (09:44)
[2022-02-22] MEDS ORDERED: P-EPHED 60MG/TRIPROLIDI 2.5MG TABLET PO PRN (11:28)
[2022-02-22] MEDS ORDERED: NICOTINE 10 MG CARTRIDGE (INHALER) IH PRN (15:16)
[2022-02-22] MEDS: QUEtiapine FUMARATE 200 MG TABLET PO SCH (21:36)
[2022-02-22] MEDS: traZODone HCL 100 MG TABLET (FP) PO SCH (21:36)
[2022-02-22] MEDS: THIAMINE HCL 100 MG TABLET (FP) PO SCH (21:37)
[2022-02-23] MEDS: ASPIRIN 81 MG CHEWABLE TABLETS PO SCH (09:55)
[2022-02-23] MEDS: GABAPENTIN 400 MG CAPSULE PO SCH ×2 (09:55→21:29)
[2022-02-23] MEDS: PRENATAL VITAMINS W/ FOLIC ACID TABLET (FP) PO SCH (09:55)
[2022-02-23] MEDS: THIAMINE HCL 100 MG TABLET (FP) PO SCH (21:29)
[2022-02-23] MEDS: traZODone HCL 100 MG TABLET (FP) PO SCH (21:29)
[2022-02-23] MEDS: QUEtiapine FUMARATE 200 MG TABLET PO SCH (21:30)
[2022-02-24] MEDS: ASPIRIN 81 MG CHEWABLE TABLETS PO SCH (09:35)
[2022-02-24] MEDS: GABAPENTIN 400 MG CAPSULE PO SCH ×2 (09:35→21:24)
[2022-02-24] MEDS: PRENATAL VITAMINS W/ FOLIC ACID TABLET (FP) PO SCH (09:35)
[2022-02-24] MEDS: ACETAMINOPHEN 325 MG TABLET (FP) PO PRN (09:36)
[2022-02-24] MEDS: QUEtiapine FUMARATE 200 MG TABLET PO SCH (21:24)
[2022-02-24] MEDS: traZODone HCL 100 MG TABLET (FP) PO SCH (21:24)
[2022-02-24] MEDS: THIAMINE HCL 100 MG TABLET (FP) PO SCH (21:24)
[2022-02-25] MEDS: GABAPENTIN 400 MG CAPSULE PO SCH ×2 (10:00→22:02)
[2022-02-25] MEDS: ASPIRIN 81 MG CHEWABLE TABLETS PO SCH (10:00)
[2022-02-25] MEDS: PRENATAL VITAMINS W/ FOLIC ACID TABLET (FP) PO SCH (10:00)
[2022-02-25] MEDS: QUEtiapine FUMARATE 200 MG TABLET PO SCH (22:02)
[2022-02-25] MEDS: THIAMINE HCL 100 MG TABLET (FP) PO SCH (22:02)
[2022-02-25] MEDS: traZODone HCL 100 MG TABLET (FP) PO SCH (22:02)
[2022-02-26] MEDS: GABAPENTIN 400 MG CAPSULE PO SCH ×2 (09:26→21:40)
[2022-02-26] MEDS: PRENATAL VITAMINS W/ FOLIC ACID TABLET (FP) PO SCH (09:26)
[2022-02-26] MEDS: ASPIRIN 81 MG CHEWABLE TABLETS PO SCH (09:26)
[2022-02-26] MEDS: traZODone HCL 100 MG TABLET (FP) PO SCH (21:40)
[2022-02-26] MEDS: QUEtiapine FUMARATE 200 MG TABLET PO SCH (21:40)
[2022-02-26] MEDS: THIAMINE HCL 100 MG TABLET (FP) PO SCH (21:40)
[2022-02-27] MEDS: GABAPENTIN 400 MG CAPSULE PO SCH ×2 (09:30→21:50)
[2022-02-27] MEDS: ASPIRIN 81 MG CHEWABLE TABLETS PO SCH (09:30)
[2022-02-27] MEDS: PRENATAL VITAMINS W/ FOLIC ACID TABLET (FP) PO SCH (09:30)
[2022-02-27] MEDS: LIDOCAINE 5% TOPICAL PATCH TP SCH (14:58)
[2022-02-27] MEDS: QUEtiapine FUMARATE 200 MG TABLET PO SCH (21:50)
[2022-02-27] MEDS: traZODone HCL 100 MG TABLET (FP) PO SCH (21:50)
[2022-02-27] MEDS: THIAMINE HCL 100 MG TABLET (FP) PO SCH (21:50)
[2022-02-28] MEDS: LIDOCAINE PATCH REMOVAL MC SCH ×2 (01:08→21:46)
[2022-02-28 08:04] VITALS: PULSE 81; RESP 18
[2022-02-28] MEDS: LIDOCAINE 5% TOPICAL PATCH TP SCH (10:01)
[2022-02-28] MEDS: PRENATAL VITAMINS W/ FOLIC ACID TABLET (FP) PO SCH (10:02)
[2022-02-28] MEDS: GABAPENTIN 400 MG CAPSULE PO SCH ×2 (10:02→21:40)
[2022-02-28] MEDS: ASPIRIN 81 MG CHEWABLE TABLETS PO SCH (10:02)
[2022-02-28] MEDS: ACETAMINOPHEN 325 MG TABLET (FP) PO PRN (16:30)
[2022-02-28] MEDS: THIAMINE HCL 100 MG TABLET (FP) PO SCH (21:40)
[2022-02-28] MEDS: traZODone HCL 100 MG TABLET (FP) PO SCH (21:40)
[2022-02-28] MEDS: QUEtiapine FUMARATE 200 MG TABLET PO SCH (21:40)
[2022-03-01] MEDS: GABAPENTIN 400 MG CAPSULE PO SCH ×2 (09:39→21:34)
[2022-03-01] MEDS: ASPIRIN 81 MG CHEWABLE TABLETS PO SCH (09:39)
[2022-03-01] MEDS: PRENATAL VITAMINS W/ FOLIC ACID TABLET (FP) PO SCH (09:39)
[2022-03-01] MEDS: IBUPROFEN 400 MG TABLET (FP) PO PRN (09:39)
[2022-03-01] MEDS: LIDOCAINE 5% TOPICAL PATCH TP SCH (09:40)
[2022-03-01] MEDS: QUEtiapine FUMARATE 200 MG TABLET PO SCH (21:34)
[2022-03-01] MEDS: THIAMINE HCL 100 MG TABLET (FP) PO SCH (21:34)
[2022-03-01] MEDS: traZODone HCL 100 MG TABLET (FP) PO SCH (21:34)
[2022-03-01] MEDS: LIDOCAINE PATCH REMOVAL MC SCH (21:34)
[2022-03-01] MEDS: ACETAMINOPHEN 325 MG TABLET (FP) PO PRN (21:35)
[2022-03-02 07:57] VITALS: BP 119/80; TEMP 97.7
[2022-03-02] MEDS: ASPIRIN 81 MG CHEWABLE TABLETS PO SCH (09:01)
[2022-03-02] MEDS: PRENATAL VITAMINS W/ FOLIC ACID TABLET (FP) PO SCH (09:01)
[2022-03-02] MEDS: LIDOCAINE 5% TOPICAL PATCH TP SCH (09:01)
[2022-03-02] MEDS: GABAPENTIN 400 MG CAPSULE PO SCH (09:01)
[2022-03-02] MEDS: ACETAMINOPHEN 325 MG TABLET (FP) PO PRN (09:03)
== END 2022-03-02 09:16 | disposition home or self-care (01) | DRG 772 ==
LOC: YASAS 11:25 → Y3E 14:40 → Y3W 15:29 → Y3E 02-10 19:20
PROVIDERS: ADMIT Allergy & Immunology; ATTEND Psychiatry & Neurology Pain Medicine
PROC: HZ42ZZZ Group Counseling for Substance Abuse Treatment, Cognitive-Behavioral (ICD-10-PCS; principal; 2022-02-09)
DX: F10.20 Alcohol dependence, uncomplicated (principal); F14.20 Cocaine dependence, uncomplicated; F12.20 Cannabis dependence, uncomplicated; F17.210 Nicotine dependence, cigarettes, uncomplicated; F25.9 Schizoaffective disorder, unspecified; F19.24 Other psychoactive substance dependence with psychoactive substance-induced mood disorder; F19.282 Other psychoactive substance dependence with psychoactive substance-induced sleep disorder; F19.280 Other psychoactive substance dependence with psychoactive substance-induced anxiety disorder; M19.90 Unspecified osteoarthritis, unspecified site; M25.551 Pain in right hip; M54.59 Other low back pain; G89.29 Other chronic pain; G62.9 Polyneuropathy, unspecified; Z91.013 Allergy to seafood; Z86.19 Personal history of other infectious and parasitic diseases; Z56.0 Unemployment, unspecified
CPT/HCPCS: 36415; 80053; 81003; 82962; 83036; 85027; 86780; 86803; 87811; C9803-CS; U0003; U0005

== ENCOUNTER 2022-05-05 16:09 | Inpatient (IN) | payer BC, OTHER ==
[2022-05-05 17:13] VITALS: BMI 23.3
[2022-05-05] MEDS ORDERED: IBUPROFEN 600 MG TABLET (FP) PO PRN (19:19)
[2022-05-05] MEDS ORDERED: ACETAMINOPHEN 325 MG TABLET (FP) PO PRN ×2 (19:19)
[2022-05-05] MEDS ORDERED: BENZOCAINE/MENTHOL (CHLORASEPTIC ) LOZENGE MM PRN (19:19)
[2022-05-05] MEDS ORDERED: MAGNESIUM HYDROX 2400MG/30ML ORAL SUSPENSION 30 ML CUP PO PRN (19:19)
[2022-05-05] MEDS ORDERED: IBUPROFEN 400 MG TABLET (FP) PO PRN (19:19)
[2022-05-05] MEDS ORDERED: MAGNESIUM CITRATE 300 ML BOTTLE PO PRN (19:19)
[2022-05-05] MEDS ORDERED: hydrOXYzine PAMOATE 25 MG CAPSULE (FP) PO PRN (19:19)
[2022-05-05] MEDS ORDERED: ONDANSETRON *ODT* 4 MG TABLET SL PRN (19:19)
[2022-05-05] MEDS ORDERED: MAG HYDROX/AL HYDROX/SIMETH 30 ML UNIT-DOSE CUP PO PRN (19:19)
[2022-05-05] MEDS ORDERED: METHOCARBAMOL 500 MG TABLET PO PRN (19:19)
[2022-05-05] MEDS ORDERED: DICYCLOMINE HCL 10 MG CAPSULE PO PRN (19:19)
[2022-05-05] MEDS ORDERED: BISMUTH SUBSALICYLATE 524 MG/30 ML PO PRN (19:19)
[2022-05-05] MEDS ORDERED: NALOXONE HCL (KLOXXADO) 8 MG SPRAY NS PRN (19:19)
[2022-05-05] MEDS ORDERED: NICOTINE 10 MG CARTRIDGE (INHALER) IH PRN (19:19)
[2022-05-05] MEDS ORDERED: LOPERAMIDE HCL 2 MG CAPSULE PO PRN (19:19)
[2022-05-05] MEDS: ASPIRIN 81 MG CHEWABLE TABLETS PO SCH (19:49)
[2022-05-05] MEDS: MELATONIN 5 MG TABLETS PO SCH ×2 (22:52→22:56)
[2022-05-05] MEDS: THIAMINE HCL 100 MG TABLET (FP) PO SCH (22:56)
[2022-05-06] MEDS: PRENATAL VITAMINS W/ FOLIC ACID TABLET (FP) PO SCH (11:19)
[2022-05-06] MEDS: ASPIRIN 81 MG CHEWABLE TABLETS PO SCH (11:19)
[2022-05-06 11:29] LABS: CALCIUM 9.7 mg/dL (8.5-10.1)
[2022-05-06 11:31] LABS: ALBUMIN 3.4 g/dl (3.4-5.0); BLOOD UREA NITROGEN 15.4 mg/dL (7-18); HEMATOCRIT 41.9 % (35.4-49); HEMOGLOBIN 13.8 GM/dL (11.7-16.9); MCH 29.4 pg (25.7-33.7); MEAN CELL VOLUME 89.2 fl (80-96); MEAN PLT VOLUME 7.9 fl (7.5-11.1); PLATELET COUNT 388 10^3/uL (134-434); RDW 13.9 % (11.9-15.9); WHITE BLOOD COUNT 5.1 K/mm3 (4.0-10.0)
[2022-05-06 11:36] LABS: BILIRUBIN,TOTAL 0.3 mg/dL (0.2-1)
[2022-05-06] MEDS: THIAMINE HCL 100 MG TABLET (FP) PO SCH (23:00)
[2022-05-06] MEDS: MELATONIN 5 MG TABLETS PO SCH (23:00)
[2022-05-07 09:17] VITALS: RESP 16
[2022-05-07] MEDS: ASPIRIN 81 MG CHEWABLE TABLETS PO SCH (10:58)
[2022-05-07] MEDS: PRENATAL VITAMINS W/ FOLIC ACID TABLET (FP) PO SCH (10:59)
[2022-05-07 13:17] VITALS: BP 111/64; PULSE 87; TEMP 98
== END 2022-05-07 15:24 | disposition other institution (70) | DRG 773 ==
LOC: YASAS 16:09 → Y6N 18:58 → UNDOADMIN 18:58
PROVIDERS: ADMIT Allergy & Immunology; ATTEND Surgery
PROC: HZ2ZZZZ Detoxification Services for Substance Abuse Treatment (ICD-10-PCS; principal; 2022-05-05)
DX: F10.230 Alcohol dependence with withdrawal, uncomplicated (principal); F11.23 Opioid dependence with withdrawal; F14.20 Cocaine dependence, uncomplicated; F12.20 Cannabis dependence, uncomplicated; F17.210 Nicotine dependence, cigarettes, uncomplicated
CPT/HCPCS: 36415; 80053; 85027; 86780; C9803-CS; U0003; U0005

== ENCOUNTER 2022-05-07 15:48 | Inpatient (IN) | payer OTHER ==
[~2022-05-07 15:48] MED LIST changes: -MENTHOL/PHENOL 1 EACH UD MM PRN; +NICOTINE 7 MG/24 HOURS TOPICAL PATCH TD PRN; +NICOTINE POLACRILEX 2 MG GUM BC PRN; -guaiFENesin 200 MG/10 ML 10 ML UNIT-DOSE CUPS PO PRN
[2022-05-07] MEDS: THIAMINE HCL 100 MG TABLET (FP) PO SCH (21:57)
[2022-05-07] MEDS ORDERED: MELATONIN 5 MG TABLETS PO SCH (22:00)
[2022-05-08] MEDS: PRENATAL VITAMINS W/ FOLIC ACID TABLET (FP) PO SCH (11:18)
[2022-05-08] MEDS: ASPIRIN 81 MG CHEWABLE TABLETS PO SCH (11:18)
[2022-05-08] MEDS: ACETAMINOPHEN 325 MG TABLET (FP) PO PRN (11:18)
[2022-05-08] MEDS: QUEtiapine FUMARATE 200 MG TABLET PO SCH (21:47)
[2022-05-08] MEDS: THIAMINE HCL 100 MG TABLET (FP) PO SCH (21:47)
[2022-05-09] MEDS: ASPIRIN 81 MG CHEWABLE TABLETS PO SCH (10:20)
[2022-05-09] MEDS: ACETAMINOPHEN 325 MG TABLET (FP) PO PRN ×2 (10:20→21:51)
[2022-05-09] MEDS: PRENATAL VITAMINS W/ FOLIC ACID TABLET (FP) PO SCH (10:20)
[2022-05-09] MEDS: THIAMINE HCL 100 MG TABLET (FP) PO SCH (21:51)
[2022-05-09] MEDS: QUEtiapine FUMARATE 200 MG TABLET PO SCH (21:51)
[2022-05-10] MEDS: PRENATAL VITAMINS W/ FOLIC ACID TABLET (FP) PO SCH (10:17)
[2022-05-10] MEDS: ASPIRIN 81 MG CHEWABLE TABLETS PO SCH (10:17)
[2022-05-10] MEDS: ACETAMINOPHEN 325 MG TABLET (FP) PO PRN ×2 (10:18→21:36)
[2022-05-10] MEDS: THIAMINE HCL 100 MG TABLET (FP) PO SCH (21:36)
[2022-05-10] MEDS: QUEtiapine FUMARATE 200 MG TABLET PO SCH (21:36)
[2022-05-11] MEDS: PRENATAL VITAMINS W/ FOLIC ACID TABLET (FP) PO SCH (10:22)
[2022-05-11] MEDS: ACETAMINOPHEN 325 MG TABLET (FP) PO PRN ×2 (10:22→21:42)
[2022-05-11] MEDS: ASPIRIN 81 MG CHEWABLE TABLETS PO SCH (10:24)
[2022-05-11] MEDS: QUEtiapine FUMARATE 200 MG TABLET PO SCH (21:43)
[2022-05-11] MEDS: THIAMINE HCL 100 MG TABLET (FP) PO SCH (21:43)
[2022-05-12] MEDS: ASPIRIN 81 MG CHEWABLE TABLETS PO SCH (10:16)
[2022-05-12] MEDS: PRENATAL VITAMINS W/ FOLIC ACID TABLET (FP) PO SCH (10:16)
[2022-05-12] MEDS: QUEtiapine FUMARATE 200 MG TABLET PO SCH (21:25)
[2022-05-12] MEDS: THIAMINE HCL 100 MG TABLET (FP) PO SCH (21:25)
[2022-05-13] MEDS: IBUPROFEN 400 MG TABLET (FP) PO PRN (07:13)
[2022-05-13] MEDS: ASPIRIN 81 MG CHEWABLE TABLETS PO SCH (10:15)
[2022-05-13] MEDS: PRENATAL VITAMINS W/ FOLIC ACID TABLET (FP) PO SCH (10:15)
[2022-05-13] MEDS: QUEtiapine FUMARATE 200 MG TABLET PO SCH (21:43)
[2022-05-13] MEDS: THIAMINE HCL 100 MG TABLET (FP) PO SCH (21:43)
[2022-05-14 07:39] VITALS: RESP 18
[2022-05-14] MEDS: PRENATAL VITAMINS W/ FOLIC ACID TABLET (FP) PO SCH (10:14)
[2022-05-14] MEDS: ASPIRIN 81 MG CHEWABLE TABLETS PO SCH (10:15)
[2022-05-14] MEDS: THIAMINE HCL 100 MG TABLET (FP) PO SCH (21:37)
[2022-05-14] MEDS: QUEtiapine FUMARATE 200 MG TABLET PO SCH (21:37)
[2022-05-14] MEDS: ACETAMINOPHEN 325 MG TABLET (FP) PO PRN (21:38)
[2022-05-15] MEDS: PRENATAL VITAMINS W/ FOLIC ACID TABLET (FP) PO SCH (10:16)
[2022-05-15] MEDS: ASPIRIN 81 MG CHEWABLE TABLETS PO SCH (10:17)
[2022-05-15] MEDS: QUEtiapine FUMARATE 200 MG TABLET PO SCH (21:51)
[2022-05-15] MEDS: THIAMINE HCL 100 MG TABLET (FP) PO SCH (21:51)
[2022-05-16] MEDS: ASPIRIN 81 MG CHEWABLE TABLETS PO SCH (10:13)
[2022-05-16] MEDS: PRENATAL VITAMINS W/ FOLIC ACID TABLET (FP) PO SCH (10:13)
[2022-05-16] MEDS: ACETAMINOPHEN 325 MG TABLET (FP) PO PRN (10:13)
[2022-05-16] MEDS: THIAMINE HCL 100 MG TABLET (FP) PO SCH (21:40)
[2022-05-16] MEDS: QUEtiapine FUMARATE 200 MG TABLET PO SCH (21:40)
[2022-05-17] MEDS: PRENATAL VITAMINS W/ FOLIC ACID TABLET (FP) PO SCH (10:08)
[2022-05-17] MEDS: ASPIRIN 81 MG CHEWABLE TABLETS PO SCH (10:08)
[2022-05-17] MEDS: QUEtiapine FUMARATE 200 MG TABLET PO SCH (21:39)
[2022-05-17] MEDS: THIAMINE HCL 100 MG TABLET (FP) PO SCH (21:39)
[2022-05-18] MEDS: PRENATAL VITAMINS W/ FOLIC ACID TABLET (FP) PO SCH (10:14)
[2022-05-18] MEDS: ASPIRIN 81 MG CHEWABLE TABLETS PO SCH (10:14)
[2022-05-18] MEDS: QUEtiapine FUMARATE 200 MG TABLET PO SCH (21:41)
[2022-05-18] MEDS: THIAMINE HCL 100 MG TABLET (FP) PO SCH (21:41)
[2022-05-19] MEDS: PRENATAL VITAMINS W/ FOLIC ACID TABLET (FP) PO SCH (10:55)
[2022-05-19] MEDS: ASPIRIN 81 MG CHEWABLE TABLETS PO SCH (10:55)
[2022-05-19] MEDS: QUEtiapine FUMARATE 200 MG TABLET PO SCH (21:23)
[2022-05-19] MEDS: ACETAMINOPHEN 325 MG TABLET (FP) PO PRN (21:24)
[2022-05-19] MEDS: THIAMINE HCL 100 MG TABLET (FP) PO SCH (21:24)
[2022-05-20] MEDS: ASPIRIN 81 MG CHEWABLE TABLETS PO SCH (09:49)
[2022-05-20] MEDS: PRENATAL VITAMINS W/ FOLIC ACID TABLET (FP) PO SCH (09:49)
[2022-05-20] MEDS: THIAMINE HCL 100 MG TABLET (FP) PO SCH (21:24)
[2022-05-20] MEDS: QUEtiapine FUMARATE 200 MG TABLET PO SCH (21:24)
[2022-05-21] MEDS: PRENATAL VITAMINS W/ FOLIC ACID TABLET (FP) PO SCH (09:37)
[2022-05-21] MEDS: ASPIRIN 81 MG CHEWABLE TABLETS PO SCH (09:37)
[2022-05-21] MEDS: QUEtiapine FUMARATE 200 MG TABLET PO SCH (21:38)
[2022-05-21] MEDS: THIAMINE HCL 100 MG TABLET (FP) PO SCH (21:38)
[2022-05-22] MEDS: PRENATAL VITAMINS W/ FOLIC ACID TABLET (FP) PO SCH (09:37)
[2022-05-22] MEDS: ASPIRIN 81 MG CHEWABLE TABLETS PO SCH (09:38)
[2022-05-22] MEDS: ACETAMINOPHEN 325 MG TABLET (FP) PO PRN (09:39)
[2022-05-22] MEDS: QUEtiapine FUMARATE 200 MG TABLET PO SCH (21:26)
[2022-05-22] MEDS: THIAMINE HCL 100 MG TABLET (FP) PO SCH (21:26)
[2022-05-23] MEDS: PRENATAL VITAMINS W/ FOLIC ACID TABLET (FP) PO SCH (09:52)
[2022-05-23] MEDS: ASPIRIN 81 MG CHEWABLE TABLETS PO SCH (09:53)
[2022-05-23] MEDS: LIDOCAINE 5% TOPICAL PATCH TP SCH (14:22)
[2022-05-23] MEDS: THIAMINE HCL 100 MG TABLET (FP) PO SCH (21:28)
[2022-05-23] MEDS: QUEtiapine FUMARATE 200 MG TABLET PO SCH (21:28)
[2022-05-23] MEDS: LIDOCAINE PATCH REMOVAL MC SCH (21:28)
[2022-05-24] MEDS: PRENATAL VITAMINS W/ FOLIC ACID TABLET (FP) PO SCH (09:57)
[2022-05-24] MEDS: ASPIRIN 81 MG CHEWABLE TABLETS PO SCH (09:57)
[2022-05-24] MEDS: LIDOCAINE 5% TOPICAL PATCH TP SCH (09:59)
[2022-05-24] MEDS: THIAMINE HCL 100 MG TABLET (FP) PO SCH (21:10)
[2022-05-24] MEDS: QUEtiapine FUMARATE 200 MG TABLET PO SCH (21:10)
[2022-05-24] MEDS: LIDOCAINE PATCH REMOVAL MC SCH (21:11)
[2022-05-25] MEDS: ASPIRIN 81 MG CHEWABLE TABLETS PO SCH (09:54)
[2022-05-25] MEDS: LIDOCAINE 5% TOPICAL PATCH TP SCH (09:54)
[2022-05-25] MEDS: PRENATAL VITAMINS W/ FOLIC ACID TABLET (FP) PO SCH (09:54)
[2022-05-25] MEDS: IBUPROFEN 400 MG TABLET (FP) PO PRN (19:11)
[2022-05-25] MEDS: LIDOCAINE PATCH REMOVAL MC SCH (21:57)
[2022-05-25] MEDS: QUEtiapine FUMARATE 200 MG TABLET PO SCH (21:57)
[2022-05-25] MEDS: THIAMINE HCL 100 MG TABLET (FP) PO SCH (21:57)
[2022-05-26] MEDS: PRENATAL VITAMINS W/ FOLIC ACID TABLET (FP) PO SCH (09:56)
[2022-05-26] MEDS: ASPIRIN 81 MG CHEWABLE TABLETS PO SCH (09:56)
[2022-05-26] MEDS: LIDOCAINE 5% TOPICAL PATCH TP SCH (09:57)
[2022-05-26] MEDS: QUEtiapine FUMARATE 200 MG TABLET PO SCH (21:27)
[2022-05-26] MEDS: LIDOCAINE PATCH REMOVAL MC SCH (21:27)
[2022-05-26] MEDS: THIAMINE HCL 100 MG TABLET (FP) PO SCH (21:27)
[2022-05-27] MEDS: PRENATAL VITAMINS W/ FOLIC ACID TABLET (FP) PO SCH (09:46)
[2022-05-27] MEDS: ASPIRIN 81 MG CHEWABLE TABLETS PO SCH (09:46)
[2022-05-27] MEDS: LIDOCAINE 5% TOPICAL PATCH TP SCH (09:47)
[2022-05-27] MEDS: QUEtiapine FUMARATE 200 MG TABLET PO SCH (21:29)
[2022-05-27] MEDS: THIAMINE HCL 100 MG TABLET (FP) PO SCH (21:30)
[2022-05-27] MEDS: LIDOCAINE PATCH REMOVAL MC SCH (21:30)
[2022-05-28] MEDS: LIDOCAINE 5% TOPICAL PATCH TP SCH (09:45)
[2022-05-28] MEDS: PRENATAL VITAMINS W/ FOLIC ACID TABLET (FP) PO SCH (09:45)
[2022-05-28] MEDS: ASPIRIN 81 MG CHEWABLE TABLETS PO SCH (09:46)
[2022-05-28] MEDS: QUEtiapine FUMARATE 200 MG TABLET PO SCH (21:52)
[2022-05-28] MEDS: THIAMINE HCL 100 MG TABLET (FP) PO SCH (21:52)
[2022-05-28] MEDS: LIDOCAINE PATCH REMOVAL MC SCH (21:52)
[2022-05-29] MEDS: ASPIRIN 81 MG CHEWABLE TABLETS PO SCH (10:03)
[2022-05-29] MEDS: LIDOCAINE 5% TOPICAL PATCH TP SCH (10:03)
[2022-05-29] MEDS: PRENATAL VITAMINS W/ FOLIC ACID TABLET (FP) PO SCH (10:03)
[2022-05-29] MEDS: LIDOCAINE PATCH REMOVAL MC SCH (21:38)
[2022-05-29] MEDS: THIAMINE HCL 100 MG TABLET (FP) PO SCH (21:39)
[2022-05-29] MEDS: ACETAMINOPHEN 325 MG TABLET (FP) PO PRN (21:39)
[2022-05-29] MEDS: QUEtiapine FUMARATE 200 MG TABLET PO SCH (21:39)
[2022-05-30] MEDS: ASPIRIN 81 MG CHEWABLE TABLETS PO SCH (09:56)
[2022-05-30] MEDS: PRENATAL VITAMINS W/ FOLIC ACID TABLET (FP) PO SCH (09:56)
[2022-05-30] MEDS: LIDOCAINE 5% TOPICAL PATCH TP SCH (09:57)
[2022-05-30] MEDS: THIAMINE HCL 100 MG TABLET (FP) PO SCH (21:41)
[2022-05-30] MEDS: QUEtiapine FUMARATE 200 MG TABLET PO SCH (21:41)
[2022-05-30] MEDS: LIDOCAINE PATCH REMOVAL MC SCH (21:41)
[2022-05-31] MEDS: PRENATAL VITAMINS W/ FOLIC ACID TABLET (FP) PO SCH (09:52)
[2022-05-31] MEDS: ASPIRIN 81 MG CHEWABLE TABLETS PO SCH (09:52)
[2022-05-31] MEDS: LIDOCAINE 5% TOPICAL PATCH TP SCH (09:53)
[2022-05-31] MEDS: guaiFENesin 200 MG/10 ML 10 ML UNIT-DOSE CUPS PO PRN ×2 (17:10→22:17)
[2022-05-31] MEDS: LIDOCAINE PATCH REMOVAL MC SCH (21:32)
[2022-05-31] MEDS: THIAMINE HCL 100 MG TABLET (FP) PO SCH (22:17)
[2022-05-31] MEDS: QUEtiapine FUMARATE 200 MG TABLET PO SCH (22:17)
[2022-06-01] MEDS: guaiFENesin 200 MG/10 ML 10 ML UNIT-DOSE CUPS PO PRN (05:52)
[2022-06-01 08:23] VITALS: BP 104/70; PULSE 85; TEMP 97.3
[2022-06-01] MEDS: ASPIRIN 81 MG CHEWABLE TABLETS PO SCH (09:11)
[2022-06-01] MEDS: PRENATAL VITAMINS W/ FOLIC ACID TABLET (FP) PO SCH (09:11)
[2022-06-01] MEDS: LIDOCAINE 5% TOPICAL PATCH TP SCH (09:12)
== END 2022-06-01 09:40 | disposition home or self-care (01) | DRG 772 ==
LOC: YASAS 15:48 → Y5N 15:49
PROVIDERS: ADMIT Allergy & Immunology; ATTEND Psychiatry & Neurology Pain Medicine
PROC: HZ42ZZZ Group Counseling for Substance Abuse Treatment, Cognitive-Behavioral (ICD-10-PCS; principal; 2022-05-07)
DX: F11.20 Opioid dependence, uncomplicated (principal); F10.20 Alcohol dependence, uncomplicated; F14.20 Cocaine dependence, uncomplicated; F12.20 Cannabis dependence, uncomplicated; F17.210 Nicotine dependence, cigarettes, uncomplicated; G62.9 Polyneuropathy, unspecified; M06.9 Rheumatoid arthritis, unspecified; M19.90 Unspecified osteoarthritis, unspecified site; M54.50 Low back pain, unspecified; G89.29 Other chronic pain; Z91.013 Allergy to seafood; Z91.018 Allergy to other foods

== ENCOUNTER 2022-07-03 09:58 | Inpatient (IN) | payer BC, OTHER ==
[2022-07-03 12:10] VITALS: BMI 23.3
[2022-07-03] MEDS ORDERED: MAGNESIUM HYDROX 2400MG/30ML ORAL SUSPENSION 30 ML CUP PO PRN (13:16)
[2022-07-03] MEDS ORDERED: POLYETHYLENE GLYCOL (HEALTHYLAX) 3350 17 GM PACKET PO PRN (13:16)
[2022-07-03] MEDS ORDERED: NICOTINE 10 MG CARTRIDGE (INHALER) IH PRN (13:16)
[2022-07-03] MEDS ORDERED: BENZOCAINE/MENTHOL (CHLORASEPTIC ) LOZENGE MM PRN (13:16)
[2022-07-03] MEDS ORDERED: guaiFENesin 200 MG/10 ML 10 ML UNIT-DOSE CUPS PO PRN (13:16)
[2022-07-03] MEDS ORDERED: P-EPHED 60MG/TRIPROLIDI 2.5MG TABLET PO PRN (13:16)
[2022-07-03] MEDS ORDERED: LOPERAMIDE HCL 2 MG CAPSULE PO PRN (13:16)
[2022-07-03] MEDS ORDERED: hydrOXYzine PAMOATE 25 MG CAPSULE (FP) PO PRN (13:16)
[2022-07-03] MEDS ORDERED: NICOTINE POLACRILEX 2 MG GUM BC PRN (13:16)
[2022-07-03] MEDS ORDERED: MAG HYDROX/AL HYDROX/SIMETH 30 ML UNIT-DOSE CUP PO PRN (13:16)
[2022-07-03 17:27] LABS: CALCIUM 7.7 mg/dL (8.5-10.1)
[2022-07-03 17:28] LABS: ALBUMIN 2.2 g/dl (3.4-5.0); BLOOD UREA NITROGEN 13.3 mg/dL (7-18)
[2022-07-03 17:31] LABS: CREATININE 1.1 mg/dL (0.55-1.3)
[2022-07-03 17:33] LABS: BILIRUBIN,TOTAL 0.8 mg/dL (0.2-1); TOT PROT 5.8 g/dl (6.4-8.2)
[2022-07-03] MEDS: PRENATAL VITAMINS W/ FOLIC ACID TABLET (FP) PO SCH (18:29)
[2022-07-03] MEDS: THIAMINE HCL 100 MG TABLET (FP) PO SCH (21:57)
[2022-07-03] MEDS: MELATONIN 5 MG TABLETS PO SCH (21:57)
[2022-07-04] MEDS: PRENATAL VITAMINS W/ FOLIC ACID TABLET (FP) PO SCH (11:39)
[2022-07-04] MEDS ORDERED: TUBERCULIN PPD 5 TU/0.1ML VIAL ID ONE (11:52)
[2022-07-04 12:07] LABS: HEMATOCRIT 39.9 % (35.4-49); HEMOGLOBIN 13.3 GM/dL (11.7-16.9); MCH 29.2 pg (25.7-33.7); MCHC 33.4 g/dl (32.0-35.9); MEAN CELL VOLUME 87.4 fl (80-96); MEAN PLT VOLUME 7.7 fl (7.5-11.1); PLATELET COUNT 326 10^3/uL (134-434); RBC 4.57 M/mm3 (4.00-5.60); RDW 14.5 % (11.9-15.9); WHITE BLOOD COUNT 4.5 K/mm3 (4.0-10.0)
[2022-07-04 12:10] LABS: URINE APPEARANCE CLEAR; URINE BILIRUBIN NEGATIVE (NEGATIVE); URINE COLOR YELLOW; URINE GLUCOSE (UA) NEGATIVE (NEGATIVE); URINE KETONE NEGATIVE (NEGATIVE); URINE LEUK ESTERASE NEGATIVE (NEGATIVE); URINE NITRITE NEGATIVE (NEGATIVE); URINE PROTEIN NEGATIVE (NEGATIVE)
[2022-07-04 12:37] LABS: SYPHILIS W/ RPR CONF NON-REACTIVE (NONREACTIVE)
[2022-07-04] MEDS: QUEtiapine FUMARATE 100 MG TABLET (FP) PO SCH (21:22)
[2022-07-04] MEDS: MELATONIN 5 MG TABLETS PO SCH (21:22)
[2022-07-04] MEDS: THIAMINE HCL 100 MG TABLET (FP) PO SCH (21:22)
[2022-07-05] MEDS: PRENATAL VITAMINS W/ FOLIC ACID TABLET (FP) PO SCH (09:26)
[2022-07-05] MEDS: QUEtiapine FUMARATE 100 MG TABLET (FP) PO SCH (21:31)
[2022-07-05] MEDS: MELATONIN 5 MG TABLETS PO SCH (21:31)
[2022-07-05] MEDS: THIAMINE HCL 100 MG TABLET (FP) PO SCH (21:31)
[2022-07-06] MEDS: PRENATAL VITAMINS W/ FOLIC ACID TABLET (FP) PO SCH (10:13)
[2022-07-06] MEDS: QUEtiapine FUMARATE 100 MG TABLET (FP) PO SCH (21:24)
[2022-07-06] MEDS: MELATONIN 5 MG TABLETS PO SCH (21:24)
[2022-07-06] MEDS: THIAMINE HCL 100 MG TABLET (FP) PO SCH (21:24)
[2022-07-07] MEDS: PRENATAL VITAMINS W/ FOLIC ACID TABLET (FP) PO SCH (10:49)
[2022-07-07] MEDS: MELATONIN 5 MG TABLETS PO SCH (21:06)
[2022-07-07] MEDS: QUEtiapine FUMARATE 100 MG TABLET (FP) PO SCH (21:06)
[2022-07-07] MEDS: ACETAMINOPHEN 325 MG TABLET (FP) PO PRN (21:06)
[2022-07-07] MEDS: THIAMINE HCL 100 MG TABLET (FP) PO SCH (21:06)
[2022-07-08] MEDS: PRENATAL VITAMINS W/ FOLIC ACID TABLET (FP) PO SCH (10:30)
[2022-07-08] MEDS: QUEtiapine FUMARATE 100 MG TABLET (FP) PO SCH (21:31)
[2022-07-08] MEDS: MELATONIN 5 MG TABLETS PO SCH (21:31)
[2022-07-08] MEDS: THIAMINE HCL 100 MG TABLET (FP) PO SCH (21:31)
[2022-07-09] MEDS: PRENATAL VITAMINS W/ FOLIC ACID TABLET (FP) PO SCH (10:38)
[2022-07-09] MEDS: MELATONIN 5 MG TABLETS PO SCH (21:11)
[2022-07-09] MEDS: QUEtiapine FUMARATE 100 MG TABLET (FP) PO SCH (21:11)
[2022-07-09] MEDS: THIAMINE HCL 100 MG TABLET (FP) PO SCH (21:11)
[2022-07-10] MEDS: PRENATAL VITAMINS W/ FOLIC ACID TABLET (FP) PO SCH (10:39)
[2022-07-10] MEDS: MELATONIN 5 MG TABLETS PO SCH (21:46)
[2022-07-10] MEDS: QUEtiapine FUMARATE 100 MG TABLET (FP) PO SCH (21:46)
[2022-07-10] MEDS: THIAMINE HCL 100 MG TABLET (FP) PO SCH (21:46)
[2022-07-11] MEDS: ACETAMINOPHEN 325 MG TABLET (FP) PO PRN (11:01)
[2022-07-11] MEDS: QUEtiapine FUMARATE 100 MG TABLET (FP) PO SCH (21:37)
[2022-07-11] MEDS: MELATONIN 5 MG TABLETS PO SCH (21:37)
[2022-07-11] MEDS: THIAMINE HCL 100 MG TABLET (FP) PO SCH (21:37)
[2022-07-12] MEDS: MELATONIN 5 MG TABLETS PO SCH (21:20)
[2022-07-12] MEDS: QUEtiapine FUMARATE 100 MG TABLET (FP) PO SCH (21:20)
[2022-07-12] MEDS: THIAMINE HCL 100 MG TABLET (FP) PO SCH (21:20)
[2022-07-13] MEDS: THIAMINE HCL 100 MG TABLET (FP) PO SCH (21:22)
[2022-07-13] MEDS: QUEtiapine FUMARATE 100 MG TABLET (FP) PO SCH (21:23)
[2022-07-13] MEDS: MELATONIN 5 MG TABLETS PO SCH (21:23)
[2022-07-14] MEDS: PRENATAL VITAMINS W/ FOLIC ACID TABLET (FP) PO PRN (09:56)
[2022-07-14] MEDS: THIAMINE HCL 100 MG TABLET (FP) PO SCH (21:29)
[2022-07-14] MEDS: QUEtiapine FUMARATE 100 MG TABLET (FP) PO SCH (21:29)
[2022-07-14] MEDS: MELATONIN 5 MG TABLETS PO SCH (21:29)
[2022-07-15] MEDS: THIAMINE HCL 100 MG TABLET (FP) PO SCH (21:47)
[2022-07-15] MEDS: QUEtiapine FUMARATE 100 MG TABLET (FP) PO SCH (21:47)
[2022-07-15] MEDS: MELATONIN 5 MG TABLETS PO SCH (21:47)
[2022-07-16] MEDS: PRENATAL VITAMINS W/ FOLIC ACID TABLET (FP) PO PRN (09:45)
[2022-07-16] MEDS: ACETAMINOPHEN 325 MG TABLET (FP) PO PRN (10:09)
[2022-07-16] MEDS: QUEtiapine FUMARATE 200 MG TABLET PO SCH (21:35)
[2022-07-16] MEDS: MELATONIN 5 MG TABLETS PO SCH (21:35)
[2022-07-16] MEDS: THIAMINE HCL 100 MG TABLET (FP) PO SCH (21:36)
[2022-07-17] MEDS: PRENATAL VITAMINS W/ FOLIC ACID TABLET (FP) PO PRN (10:20)
[2022-07-17] MEDS: QUEtiapine FUMARATE 200 MG TABLET PO SCH (21:29)
[2022-07-17] MEDS: MELATONIN 5 MG TABLETS PO SCH (21:29)
[2022-07-17] MEDS: THIAMINE HCL 100 MG TABLET (FP) PO SCH (21:29)
[2022-07-18] MEDS: PRENATAL VITAMINS W/ FOLIC ACID TABLET (FP) PO PRN (10:18)
[2022-07-18] MEDS: QUEtiapine FUMARATE 200 MG TABLET PO SCH (21:00)
[2022-07-18] MEDS: MELATONIN 5 MG TABLETS PO SCH (21:00)
[2022-07-18] MEDS: THIAMINE HCL 100 MG TABLET (FP) PO SCH (21:00)
[2022-07-19] MEDS: LIDOCAINE 5% TOPICAL PATCH TP SCH (16:53)
[2022-07-19] MEDS: MELATONIN 5 MG TABLETS PO SCH (21:00)
[2022-07-19] MEDS: LIDOCAINE PATCH REMOVAL MC SCH (21:00)
[2022-07-19] MEDS: QUEtiapine FUMARATE 200 MG TABLET PO SCH (21:00)
[2022-07-19] MEDS: THIAMINE HCL 100 MG TABLET (FP) PO SCH (21:00)
[2022-07-20] MEDS: IBUPROFEN 400 MG TABLET (FP) PO PRN (10:01)
[2022-07-20] MEDS: LIDOCAINE 5% TOPICAL PATCH TP SCH (10:01)
[2022-07-20] MEDS: PRENATAL VITAMINS W/ FOLIC ACID TABLET (FP) PO PRN (10:02)
[2022-07-20] MEDS: QUEtiapine FUMARATE 200 MG TABLET PO SCH (21:01)
[2022-07-20] MEDS: THIAMINE HCL 100 MG TABLET (FP) PO SCH (21:01)
[2022-07-20] MEDS: MELATONIN 5 MG TABLETS PO SCH (21:01)
[2022-07-20] MEDS: LIDOCAINE PATCH REMOVAL MC SCH (21:02)
[2022-07-21] MEDS: PRENATAL VITAMINS W/ FOLIC ACID TABLET (FP) PO PRN (10:06)
[2022-07-21] MEDS: LIDOCAINE 5% TOPICAL PATCH TP SCH (10:06)
[2022-07-21] MEDS: THIAMINE HCL 100 MG TABLET (FP) PO SCH (21:29)
[2022-07-21] MEDS: QUEtiapine FUMARATE 200 MG TABLET PO SCH (21:29)
[2022-07-21] MEDS: MELATONIN 5 MG TABLETS PO SCH (21:30)
[2022-07-21] MEDS: LIDOCAINE PATCH REMOVAL MC SCH (21:30)
[2022-07-22] MEDS: PRENATAL VITAMINS W/ FOLIC ACID TABLET (FP) PO PRN (10:10)
[2022-07-22] MEDS: LIDOCAINE 5% TOPICAL PATCH TP SCH (10:11)
[2022-07-22] MEDS: IBUPROFEN 400 MG TABLET (FP) PO PRN ×2 (10:12→21:01)
[2022-07-22] MEDS: MELATONIN 5 MG TABLETS PO SCH (21:01)
[2022-07-22] MEDS: QUEtiapine FUMARATE 200 MG TABLET PO SCH (21:01)
[2022-07-22] MEDS: THIAMINE HCL 100 MG TABLET (FP) PO SCH (21:01)
[2022-07-22] MEDS: LIDOCAINE PATCH REMOVAL MC SCH (21:24)
[2022-07-23] MEDS: LIDOCAINE 5% TOPICAL PATCH TP SCH (09:42)
[2022-07-23] MEDS: PRENATAL VITAMINS W/ FOLIC ACID TABLET (FP) PO PRN (09:42)
[2022-07-23] MEDS: THIAMINE HCL 100 MG TABLET (FP) PO SCH (21:21)
[2022-07-23] MEDS: QUEtiapine FUMARATE 200 MG TABLET PO SCH (21:21)
[2022-07-23] MEDS: MELATONIN 5 MG TABLETS PO SCH (21:21)
[2022-07-23] MEDS: LIDOCAINE PATCH REMOVAL MC SCH (21:22)
[2022-07-24] MEDS: LIDOCAINE 5% TOPICAL PATCH TP SCH (09:53)
[2022-07-24] MEDS: ACETAMINOPHEN 325 MG TABLET (FP) PO PRN (13:53)
[2022-07-24] MEDS: THIAMINE HCL 100 MG TABLET (FP) PO SCH (21:26)
[2022-07-24] MEDS: QUEtiapine FUMARATE 200 MG TABLET PO SCH (21:26)
[2022-07-24] MEDS: MELATONIN 5 MG TABLETS PO SCH (21:26)
[2022-07-24] MEDS: LIDOCAINE PATCH REMOVAL MC SCH (21:39)
[2022-07-25] MEDS: PRENATAL VITAMINS W/ FOLIC ACID TABLET (FP) PO PRN (09:02)
[2022-07-25] MEDS: ACETAMINOPHEN 325 MG TABLET (FP) PO PRN (09:02)
[2022-07-25] MEDS: LIDOCAINE 5% TOPICAL PATCH TP SCH (09:12)
[2022-07-25 12:47] LABS: ALBUMIN 3.8 g/dl (3.4-5.0); CALCIUM 9.6 mg/dL (8.5-10.1)
[2022-07-25 12:48] LABS: BLOOD UREA NITROGEN 19.7 mg/dL (7-18)
[2022-07-25 12:52] LABS: BILIRUBIN,TOTAL 0.5 mg/dL (0.2-1); TOT PROT 6.6 g/dl (6.4-8.2)
[2022-07-25] MEDS: IBUPROFEN 400 MG TABLET (FP) PO PRN (15:58)
[2022-07-25] MEDS: LIDOCAINE PATCH REMOVAL MC SCH (21:13)
[2022-07-25] MEDS: QUEtiapine FUMARATE 200 MG TABLET PO SCH (21:13)
[2022-07-25] MEDS: THIAMINE HCL 100 MG TABLET (FP) PO SCH (21:13)
[2022-07-25] MEDS: MELATONIN 5 MG TABLETS PO SCH (21:13)
[2022-07-26] MEDS: ACETAMINOPHEN 325 MG TABLET (FP) PO PRN (08:56)
[2022-07-26] MEDS: LIDOCAINE 5% TOPICAL PATCH TP SCH (09:10)
[2022-07-26] MEDS: QUEtiapine FUMARATE 200 MG TABLET PO SCH (21:16)
[2022-07-26] MEDS: THIAMINE HCL 100 MG TABLET (FP) PO SCH (21:16)
[2022-07-26] MEDS: MELATONIN 5 MG TABLETS PO SCH (21:16)
[2022-07-26] MEDS: LIDOCAINE PATCH REMOVAL MC SCH (21:16)
[2022-07-27] MEDS: ACETAMINOPHEN 325 MG TABLET (FP) PO PRN ×2 (07:49→21:34)
[2022-07-27] MEDS: LIDOCAINE 5% TOPICAL PATCH TP SCH (09:30)
[2022-07-27] MEDS: IBUPROFEN 400 MG TABLET (FP) PO PRN (09:31)
[2022-07-27] MEDS: QUEtiapine FUMARATE 200 MG TABLET PO SCH (21:34)
[2022-07-27] MEDS: THIAMINE HCL 100 MG TABLET (FP) PO SCH (21:34)
[2022-07-27] MEDS: MELATONIN 5 MG TABLETS PO SCH (21:34)
[2022-07-27] MEDS: LIDOCAINE PATCH REMOVAL MC SCH (21:35)
[2022-07-28 07:27] VITALS: BP 118/74; PULSE 89; RESP 18; TEMP 97.1
[2022-07-28] MEDS: LIDOCAINE 5% TOPICAL PATCH TP SCH (09:01)
== END 2022-07-28 09:02 | disposition home or self-care (01) | DRG 772 ==
LOC: YASAS 09:58 → Y3W 17:37
PROVIDERS: ADMIT Allergy & Immunology; ATTEND Psychiatry & Neurology Pain Medicine
PROC: HZ42ZZZ Group Counseling for Substance Abuse Treatment, Cognitive-Behavioral (ICD-10-PCS; principal; 2022-07-03)
DX: F10.20 Alcohol dependence, uncomplicated (principal); F14.20 Cocaine dependence, uncomplicated; F12.20 Cannabis dependence, uncomplicated; F17.210 Nicotine dependence, cigarettes, uncomplicated; F31.9 Bipolar disorder, unspecified; F19.282 Other psychoactive substance dependence with psychoactive substance-induced sleep disorder; G62.9 Polyneuropathy, unspecified; M06.9 Rheumatoid arthritis, unspecified; M54.50 Low back pain, unspecified; G89.29 Other chronic pain; M25.551 Pain in right hip; M54.31 Sciatica, right side; R26.89 Other abnormalities of gait and mobility; R79.89 Other specified abnormal findings of blood chemistry; Z91.013 Allergy to seafood
CPT/HCPCS: 36415; 80053; 81003; 85027; 86780; 86803; 87811; C9803-CS; U0003; U0005

== ENCOUNTER 2023-12-25 19:25 | Inpatient (IN) | payer OTHER ==
[2023-12-25 20:27] VITALS: BMI 27.9
[2023-12-25] MEDS ORDERED: BENZONATATE 200 MG CAPSULE PO PRN (21:51)
[2023-12-25] MEDS ORDERED: MAG HYDROX/AL HYDROX/SIMETH 30 ML UNIT-DOSE CUP PO PRN (21:51)
[2023-12-25] MEDS ORDERED: NALOXONE (NARCAN) HCL 4 MG/0.1 ML SPRAY NS PRN (21:51)
[2023-12-25] MEDS ORDERED: NICOTINE POLACRILEX 2 MG GUM BUC PRN (21:51)
[2023-12-25] MEDS ORDERED: hydrOXYzine PAMOATE 25 MG CAPSULE (FP) PO PRN (21:51)
[2023-12-25] MEDS ORDERED: DICYCLOMINE HCL 10 MG CAPSULE PO PRN (21:51)
[2023-12-25] MEDS ORDERED: ACETAMINOPHEN 325 MG TABLET (FP) PO PRN (21:51)
[2023-12-25] MEDS ORDERED: LOPERAMIDE HCL 2 MG CAPSULE PO PRN (21:51)
[2023-12-25] MEDS ORDERED: BENZOCAINE/MENTHOL (CHLORASEPTIC ) LOZENGE MM PRN (21:51)
[2023-12-25] MEDS ORDERED: guaiFENesin 600 MG TABLET.ER (FP) PO PRN (21:51)
[2023-12-25] MEDS ORDERED: METHOCARBAMOL 500 MG TABLET PO PRN (21:51)
[2023-12-25] MEDS ORDERED: NALOXONE HCL 0.4 MG/ML VIAL IM PRN (21:51)
[2023-12-25] MEDS ORDERED: IBUPROFEN 400 MG TABLET (FP) PO PRN (21:51)
[2023-12-25] MEDS ORDERED: ONDANSETRON *ODT* 4 MG TABLET SL PRN (21:51)
[2023-12-25] MEDS ORDERED: POLYETHYLENE GLYCOL (HEALTHYLAX) 3350 17 GM PACKET PO PRN (21:51)
[2023-12-25] MEDS ORDERED: MAGNESIUM HYDROX 2400MG/30ML ORAL SUSPENSION 30 ML CUP PO PRN (21:51)
[2023-12-25] MEDS: MELATONIN 5 MG TABLETS PO SCH (23:30)
[2023-12-25] MEDS: THIAMINE 100 MG TABLET PO SCH (23:31)
[2023-12-26] MEDS ORDERED: chlordiazePOXIDE HCL 25 MG CAPSULE PO PRN (09:13)
[2023-12-26] MEDS: NICOTINE 21 MG/24 HOURS TOPICAL PATCH TD SCH (10:23)
[2023-12-26] MEDS: PRENATAL VITAMINS W/ FOLIC ACID TABLET (FP) PO SCH (10:23)
[2023-12-26] MEDS: chlordiazePOXIDE HCL 25 MG CAPSULE PO SCH (10:23)
[2023-12-26 11:38] LABS: HEMATOCRIT 39.2 % (35.4-49); HEMOGLOBIN 13.3 GM/dL (11.7-16.9); MCH 30.9 pg (25.7-33.7); MEAN CELL VOLUME 90.8 fl (80-96); PLATELET COUNT 348 10^3/uL (134-434); RBC 4.32 M/mm3 (4.00-5.60); RDW 13.1 % (11.9-15.9)
[2023-12-26 11:44] LABS: POTASSIUM 3.6 mmol/L (3.5-5.1)
[2023-12-26 11:53] LABS: ALBUMIN 3.5 g/dl (3.4-5.0); CALCIUM 9.3 mg/dL (8.5-10.1)
[2023-12-26 11:54] LABS: BLOOD UREA NITROGEN 12.5 mg/dL (7-18)
[2023-12-26 11:56] LABS: CREATININE 0.9 mg/dL (0.55-1.3)
[2023-12-26 11:57] LABS: TOT PROT 5.8 g/dl (6.4-8.2)
[2023-12-26 11:58] LABS: BILIRUBIN,TOTAL 0.6 mg/dL (0.2-1)
[2023-12-26] MEDS: IBUPROFEN 600 MG TABLET (FP) PO PRN (17:41)
[2023-12-26] MEDS: BISMUTH SUBSALICYLATE 524 MG/30 ML PO PRN (17:42)
[2023-12-26] MEDS: QUEtiapine FUMARATE 50 MG TABLET PO SCH (22:24)
[2023-12-28] MEDS: chlordiazePOXIDE HCL 25 MG CAPSULE PO SCH (06:00)
[2023-12-29] MEDS ORDERED: chlordiazePOXIDE HCL 10 MG CAPSULE PO PRN
[2023-12-29] MEDS: chlordiazePOXIDE HCL 10 MG CAPSULE PO SCH (06:00)
[2023-12-30] MEDS: chlordiazePOXIDE HCL 10 MG CAPSULE PO SCH (06:38)
[2023-12-31] MEDS: chlordiazePOXIDE HCL 10 MG CAPSULE PO ONE (05:51)
[2023-12-31 06:51] VITALS: RESP 18
[2023-12-31 09:16] VITALS: BP 113/71; PULSE 68; TEMP 97.1
== END 2023-12-31 11:10 | disposition other institution (70) | DRG 774 ==
LOC: YASAS 19:25 → Y6N 21:37
PROVIDERS: ADMIT Allergy & Immunology; ATTEND Surgery
PROC: HZ2ZZZZ Detoxification Services for Substance Abuse Treatment (ICD-10-PCS; principal; 2023-12-25)
DX: F10.230 Alcohol dependence with withdrawal, uncomplicated (principal); F14.20 Cocaine dependence, uncomplicated; F12.20 Cannabis dependence, uncomplicated; F17.210 Nicotine dependence, cigarettes, uncomplicated; F19.282 Other psychoactive substance dependence with psychoactive substance-induced sleep disorder; F19.24 Other psychoactive substance dependence with psychoactive substance-induced mood disorder; F31.9 Bipolar disorder, unspecified; F41.9 Anxiety disorder, unspecified; M06.852 Other specified rheumatoid arthritis, left hip; M06.851 Other specified rheumatoid arthritis, right hip; M06.862 Other specified rheumatoid arthritis, left knee; M06.861 Other specified rheumatoid arthritis, right knee; M54.50 Low back pain, unspecified; G89.29 Other chronic pain; Z59.00 Homelessness unspecified
CPT/HCPCS: 36415; 80053; 80305; 80307; 85027; 86780; 93005; 93010

== ENCOUNTER 2024-04-17 16:58 | Inpatient (IN) | payer OTHER ==
[2024-04-17 20:40] VITALS: BMI 28.3
[2024-04-17] MEDS ORDERED: NICOTINE POLACRILEX 4 MG GUM BUC PRN (21:42)
[2024-04-17] MEDS ORDERED: MAG HYDROX/AL HYDROX/SIMETH 30 ML UNIT-DOSE CUP PO PRN (21:42)
[2024-04-17] MEDS ORDERED: BENZONATATE 200 MG CAPSULE PO PRN (21:42)
[2024-04-17] MEDS ORDERED: guaiFENesin 600 MG TABLET.ER (FP) PO PRN (21:42)
[2024-04-17] MEDS ORDERED: LOPERAMIDE HCL 2 MG CAPSULE PO PRN (21:42)
[2024-04-17] MEDS ORDERED: IBUPROFEN 400 MG TABLET (FP) PO PRN (21:42)
[2024-04-17] MEDS ORDERED: NALOXONE (NARCAN) HCL 4 MG/0.1 ML SPRAY NS PRN (21:42)
[2024-04-17] MEDS ORDERED: POLYETHYLENE GLYCOL (HEALTHYLAX) 3350 17 GM PACKET PO PRN (21:42)
[2024-04-17] MEDS ORDERED: MELATONIN 5 MG TABLETS ONE (23:40)
[2024-04-17] MEDS: MELATONIN 5 MG TABLETS PO SCH (23:55)
[2024-04-17] MEDS: THIAMINE 100 MG TABLET PO SCH (23:55)
[2024-04-18] MEDS: ACETAMINOPHEN 325 MG TABLET (FP) PO PRN (10:06)
[2024-04-18] MEDS: PRENATAL VITAMINS W/ FOLIC ACID TABLET (FP) PO SCH (10:06)
[2024-04-18] MEDS: NICOTINE 14 MG/24 HOURS TOPICAL PATCH TD SCH (10:07)
[2024-04-18 17:40] LABS: HEMATOCRIT 40.5 % (35.4-49); HEMOGLOBIN 13.2 GM/dL (11.7-16.9); MCH 29.7 pg (25.7-33.7); MCHC 32.7 g/dl (32.0-35.9); MEAN CELL VOLUME 90.9 fl (80-96); MEAN PLT VOLUME 7.9 fl (7.5-11.1); PLATELET COUNT 359 10^3/uL (134-434); RBC 4.45 M/mm3 (4.00-5.60); RDW 13.4 % (11.9-15.9); WHITE BLOOD COUNT 5.9 K/mm3 (4.0-10.0)
[2024-04-18 17:46] LABS: CHLORIDE 108 mmol/L (98-107); POTASSIUM 4.2 mmol/L (3.5-5.1); SODIUM 141 mmol/L (136-145)
[2024-04-18 17:59] LABS: ALBUMIN 3.1 g/dl (3.4-5.0); ANION GAP 6 mmol/L (4-13); BLOOD UREA NITROGEN 14.4 mg/dL (7-18); CO2 27 mmol/L (21-32); GLUCOSE,RANDOM 83 mg/dL (74-106)
[2024-04-18 18:02] LABS: CREATININE 0.9 mg/dL (0.55-1.3); SGOT/AST 23 U/L (15-37); SGPT/ALT 43 U/L (13-61)
[2024-04-18 18:04] LABS: BILIRUBIN,TOTAL 0.4 mg/dL (0.2-1); TOT PROT 5.8 g/dl (6.4-8.2)
[2024-04-18 18:05] LABS: ALK PHOS 78 U/L (45-117)
[2024-04-18 18:34] LABS: SYPHILIS W/ RPR CONF NON-REACTIVE (NONREACTIVE)
[2024-04-18] MEDS: hydrOXYzine PAMOATE 25 MG CAPSULE (FP) PO PRN (21:34)
[2024-04-19 11:39] LABS: PH,URINE 7.5 (5.0-8.0); URINE APPEARANCE CLEAR; URINE BILIRUBIN NEGATIVE (NEGATIVE); URINE COLOR YELLOW; URINE GLUCOSE (UA) NEGATIVE (NEGATIVE); URINE KETONE NEGATIVE (NEGATIVE); URINE LEUK ESTERASE NEGATIVE (NEGATIVE); URINE NITRITE NEGATIVE (NEGATIVE); URINE PROTEIN NEGATIVE (NEGATIVE); URINE UROBILINOGEN 0.2 mg/dL (0.2-1.0)
[2024-04-19] MEDS: MAGNESIUM HYDROX 2400MG/30ML ORAL SUSPENSION 30 ML CUP PO PRN (17:12)
[2024-04-19] MEDS: QUEtiapine FUMARATE 50 MG TABLET PO SCH (21:26)
[2024-04-20] MEDS: IBUPROFEN 600 MG TABLET (FP) PO PRN (21:18)
[2024-04-22] MEDS: BACLOFEN 10 MG TABLET (FP) PO SCH (21:33)
[2024-04-27] MEDS: BENZOCAINE/MENTHOL (CHLORASEPTIC ) LOZENGE MM PRN (19:26)
[2024-04-28] MEDS: LIDOCAINE 4% PATCH TP SCH (14:47)
[2024-04-28] MEDS: LIDOCAINE PATCH REMOVAL MC SCH (22:07)
[2024-05-02] MEDS: ASPIRIN 81 MG CHEWABLE TABLETS PO SCH (09:59)
[2024-05-02] MEDS ORDERED: CLINDAMYCIN HCL 150 MG CAPSULE (FP) PO SCH (14:00)
[2024-05-02] MEDS: DOXYCYCLINE HYCLATE 100 MG TABLET PO SCH (17:11)
[2024-05-07] MEDS: GABAPENTIN 100 MG CAPSULE PO SCH (16:39)
[2024-05-08] MEDS: GABAPENTIN 300 MG CAPSULE PO SCH (21:20)
[2024-05-09] MEDS: QUEtiapine FUMARATE 100 MG TABLET (FP) PO SCH (21:44)
[2024-05-12 06:52] VITALS: BP 108/68; PULSE 64; RESP 16; TEMP 97.5
[2024-05-12] MEDS: NALOXONE (NYS OPIOID OVERDOSE PROGRAM) 4 MG/0.1 ML SPRAY NS PRN (10:28)
== END 2024-05-12 10:44 | disposition home or self-care (01) | DRG 772 ==
LOC: YASAS 16:58 → Y3W 23:12
PROVIDERS: ADMIT Allergy & Immunology; ATTEND Psychiatry & Neurology Pain Medicine
PROC: HZ42ZZZ Group Counseling for Substance Abuse Treatment, Cognitive-Behavioral (ICD-10-PCS; principal; 2024-04-17)
DX: F10.20 Alcohol dependence, uncomplicated (principal); F14.20 Cocaine dependence, uncomplicated; F12.20 Cannabis dependence, uncomplicated; F17.210 Nicotine dependence, cigarettes, uncomplicated; F19.282 Other psychoactive substance dependence with psychoactive substance-induced sleep disorder; F25.9 Schizoaffective disorder, unspecified; F31.9 Bipolar disorder, unspecified; F41.9 Anxiety disorder, unspecified; L02.412 Cutaneous abscess of left axilla; M19.90 Unspecified osteoarthritis, unspecified site; M54.50 Low back pain, unspecified; G89.29 Other chronic pain; Z56.0 Unemployment, unspecified; Z59.00 Homelessness unspecified; M06.9 Rheumatoid arthritis, unspecified
CPT/HCPCS: 36415; 80053; 80305; 80307; 81003; 85027; 86780; 86803; J0475

== ENCOUNTER 2024-08-07 18:15 | Inpatient (IN) | payer OTHER ==
[2024-08-07 18:25] VITALS: BMI 26.6
[2024-08-07] MEDS ORDERED: BENZOCAINE/MENTHOL (CHLORASEPTIC ) LOZENGE MM PRN (19:35)
[2024-08-07] MEDS ORDERED: POLYETHYLENE GLYCOL (HEALTHYLAX) 3350 17 GM PACKET PO PRN (19:35)
[2024-08-07] MEDS ORDERED: guaiFENesin 600 MG TABLET.ER (FP) PO PRN (19:35)
[2024-08-07] MEDS ORDERED: hydrOXYzine PAMOATE 25 MG CAPSULE (FP) PO PRN (19:35)
[2024-08-07] MEDS ORDERED: NALOXONE (NARCAN) HCL 4 MG/0.1 ML SPRAY NS PRN (19:35)
[2024-08-07] MEDS ORDERED: MAGNESIUM HYDROX 2400MG/30ML ORAL SUSPENSION 30 ML CUP PO PRN (19:35)
[2024-08-07] MEDS ORDERED: MAG HYDROX/AL HYDROX/SIMETH 30 ML UNIT-DOSE CUP PO PRN (19:35)
[2024-08-07] MEDS ORDERED: LOPERAMIDE HCL 2 MG CAPSULE PO PRN (19:35)
[2024-08-07] MEDS ORDERED: NICOTINE POLACRILEX 2 MG GUM BUC PRN (19:35)
[2024-08-07] MEDS ORDERED: IBUPROFEN 400 MG TABLET (FP) PO PRN (19:35)
[2024-08-07] MEDS ORDERED: BENZONATATE 200 MG CAPSULE PO PRN (19:35)
[2024-08-07] MEDS: THIAMINE 100 MG TABLET PO SCH (21:48)
[2024-08-07] MEDS: MELATONIN 5 MG TABLETS PO SCH (21:48)
[2024-08-07] MEDS: TUBERCULIN PPD 5 TU/0.1ML SYRINGE (IN PATIENT USE ONLY) ID ONE (22:35)
[2024-08-08] MEDS: ACETAMINOPHEN 325 MG TABLET (FP) PO PRN (10:13)
[2024-08-08] MEDS: PRENATAL VITAMINS W/ FOLIC ACID TABLET (FP) PO SCH (10:13)
[2024-08-08] MEDS: NICOTINE 14 MG/24 HOURS TOPICAL PATCH TD SCH (10:13)
[2024-08-08 11:29] LABS: HEMATOCRIT 37.7 % (35.4-49); HEMOGLOBIN 12.7 GM/dL (11.7-16.9); MCH 29.5 pg (25.7-33.7); MCHC 33.7 g/dl (32.0-35.9); MEAN CELL VOLUME 87.6 fl (80-96); MEAN PLT VOLUME 7.7 fl (7.5-11.1); PLATELET COUNT 314 10^3/uL (134-434); RBC 4.31 M/mm3 (4.00-5.60); RDW 15.1 % (11.9-15.9); WHITE BLOOD COUNT 5.5 K/mm3 (4.0-10.0)
[2024-08-08 11:49] LABS: CHLORIDE 112 mmol/L (98-107); POTASSIUM 3.7 mmol/L (3.5-5.1); SODIUM 144 mmol/L (136-145)
[2024-08-08 12:08] LABS: ALBUMIN 3.2 g/dl (3.4-5.0); ANION GAP 3 mmol/L (4-13); CALCIUM 9.4 mg/dL (8.5-10.1); CO2 29 mmol/L (21-32); GLUCOSE,RANDOM 90 mg/dL (74-106)
[2024-08-08 12:12] LABS: BILIRUBIN,TOTAL 0.4 mg/dL (0.2-1); CREATININE 1.1 mg/dL (0.55-1.3); SGOT/AST 11 U/L (15-37); SGPT/ALT 18 U/L (13-61); TOT PROT 5.8 g/dl (6.4-8.2)
[2024-08-08 12:13] LABS: ALK PHOS 73 U/L (45-117)
[2024-08-08 14:43] LABS: URINE APPEARANCE CLEAR; URINE BILIRUBIN NEGATIVE (NEGATIVE); URINE COLOR YELLOW; URINE GLUCOSE (UA) NEGATIVE (NEGATIVE); URINE KETONE TRACE (NEGATIVE); URINE LEUK ESTERASE NEGATIVE (NEGATIVE); URINE NITRITE NEGATIVE (NEGATIVE); URINE PROTEIN NEGATIVE (NEGATIVE)
[2024-08-08] MEDS: QUEtiapine FUMARATE 100 MG TABLET (FP) PO SCH (21:17)
[2024-08-10] MEDS: IBUPROFEN 600 MG TABLET (FP) PO PRN (16:43)
[2024-08-13] MEDS: GABAPENTIN 250 MG/5 ML ORAL SOLUTION, 470 ML BOTTLE PO SCH (14:49)
[2024-08-13] MEDS: GABAPENTIN 300 MG CAPSULE PO SCH (15:30)
[2024-08-14] MEDS: ASPIRIN 81 MG CHEWABLE TABLETS PO SCH (10:13)
[2024-08-15] MEDS: GABAPENTIN 400 MG CAPSULE PO SCH (14:27)
[2024-08-15] MEDS: BACLOFEN 10 MG TABLET (FP) PO SCH (21:35)
[2024-08-17] MEDS ORDERED: QUEtiapine FUMARATE 50 MG TABLET ONE (20:23)
[2024-08-19 05:47] VITALS: RESP 16
[2024-08-21 05:36] VITALS: BP 116/85; PULSE 85; TEMP 97.3
== END 2024-08-21 09:27 | disposition home or self-care (01) | DRG 772 ==
LOC: YASAS 18:15 → Y3W 20:57
PROVIDERS: ADMIT Allergy & Immunology; ATTEND Psychiatry & Neurology Pain Medicine
PROC: HZ42ZZZ Group Counseling for Substance Abuse Treatment, Cognitive-Behavioral (ICD-10-PCS; principal; 2024-08-07)
DX: F10.20 Alcohol dependence, uncomplicated (principal); F14.20 Cocaine dependence, uncomplicated; F12.20 Cannabis dependence, uncomplicated; F17.210 Nicotine dependence, cigarettes, uncomplicated; F25.9 Schizoaffective disorder, unspecified; F31.9 Bipolar disorder, unspecified; F19.282 Other psychoactive substance dependence with psychoactive substance-induced sleep disorder; F19.24 Other psychoactive substance dependence with psychoactive substance-induced mood disorder; F41.9 Anxiety disorder, unspecified; M06.9 Rheumatoid arthritis, unspecified; M54.50 Low back pain, unspecified; G89.29 Other chronic pain; Z56.0 Unemployment, unspecified; Z59.00 Homelessness unspecified
CPT/HCPCS: 36415; 80053; 80305; 80307; 81003; 85027; 86780; 87811; 93005; 93010; J0475